=== PATIENT | male | born 1965 | race Caucasian/White ===

== ENCOUNTER → 2017-03-25 | Outpatient (CLI) | payer OTHER ==
[2017-03-25 13:13] LABS: BLOOD UREA NITROGEN 9 mg/dl (7-18); BUN/CREATININE RATIO 10.4 (10-20); CALCIUM 8.4 mg/dl (8.5-10.1); CARBON DIOXIDE 25 mmol/L (21-32); CHLORIDE 104 mmol/L (98-107); CREATININE 0.89 mg/dl (0.60-1.40); GLUCOSE 193 mg/dl (70-99); POTASSIUM 4.1 mmol/L (3.5-5.1); SODIUM 139 mmol/L (136-145)
[2017-03-25 13:15] LABS: ESTIMATED AVERAGE GLUCOSE 148 mg/dl; HA1C FLAG Normal (Normal)
== END | disposition home or self-care (01) ==
LOC: C.LABPVFM 08:08
PROVIDERS: ATTEND Family Medicine
DX: E11.9 Type 2 diabetes mellitus without complications (principal); I10 Essential (primary) hypertension

== ENCOUNTER → 2017-09-29 | Outpatient (CLI) | payer OTHER ==
[2017-09-29 13:03] LABS: BLOOD UREA NITROGEN 11 mg/dl (7-18); BUN/CREATININE RATIO 12.3 (10-20); CALCIUM 8.7 mg/dl (8.5-10.1); CARBON DIOXIDE 25 mmol/L (21-32); CHLORIDE 104 mmol/L (98-107); CREATININE 0.88 mg/dl (0.60-1.40); GLUCOSE 205 mg/dl (70-99); POTASSIUM 4.2 mmol/L (3.5-5.1); SODIUM 137 mmol/L (136-145)
[2017-09-29 13:23] LABS: ESTIMATED AVERAGE GLUCOSE 163 mg/dl; HA1C FLAG Normal (Normal)
== END | disposition home or self-care (01) ==
LOC: C.LABPVFM 07:30
PROVIDERS: ATTEND Family Medicine
DX: I10 Essential (primary) hypertension (principal); E11.9 Type 2 diabetes mellitus without complications

== ENCOUNTER → 2018-03-05 | Outpatient (CLI) | payer OTHER ==
[2018-03-05 18:11] LABS: ALBUMIN 3.6 gm/dl (3.4-5.0); ALT/SGPT 46 U/L (12-78); AST/SGOT 16 U/L (15-37); BLOOD UREA NITROGEN 10 mg/dl (7-18); CALCIUM 8.6 mg/dl (8.5-10.1); CARBON DIOXIDE 23 mmol/L (21-32); CREATININE 0.92 mg/dl (0.60-1.40); GLUCOSE 159 mg/dl (70-99); POTASSIUM 4.1 mmol/L (3.5-5.1); SODIUM 136 mmol/L (136-145)
[2018-03-05 18:21] LABS: ALKALINE PHOSPHATASE 63 U/L (45-117); CHOLESTEROL 154 mg/dl (0-200); LDL CHOLESTEROL CALCULATED 78 mg/dl; TOTAL PROTEIN 7.9 gm/dl (6.4-8.2)
[2018-03-06 06:58] LABS: HEMOGLOBIN A1C 7.1 % (4.5-5.6)
== END | disposition home or self-care (01) ==
LOC: C.LABPVFM 15:46
PROVIDERS: ATTEND Family Medicine
DX: E11.9 Type 2 diabetes mellitus without complications (principal)

== ENCOUNTER 2021-09-25 20:58 | Inpatient (IN) ==
[2021-09-25] MEDS ORDERED: SODIUM CHLORIDE 0.9% 1000ML 1,000 ML IV ONE ×2 (21:12→21:56)
[2021-09-25] MEDS ORDERED: dexAMETHasone**PF** 10 MG/ML VIAL IV ONE (21:12)
--- NOTE | 2021-09-25 21:18 | Emergency Department Note ---
Impression & Plan Respiratory failure, Hypoxic, COVID-19 ED Provider Note NAME: CHOCO CANO AGE: 56 SEX: M : 1965 ARRIVES VIA: Walk-In INFORMANT: Patient ED PROVIDER(S): Sandro Peacock DO CHIEF COMPLAINT: Shortness of breath HPI: Patient is a morbidly obese 56-year-old male with a past medical history of hypertension and diabetes that presents to the ER for shortness of breath. is positive with Covid. His symptoms started on Monday with a sore throat and weakness. He denies any chest pain but admits to shortness of breath especially walking. No belly pain, nausea, vomiting, or diarrhea. No dysuria, urgency, or frequency. Pulse ox at home has been dropping to the 70s. Daughter is at bedside and is a nurse at [employer]. ROS: See above HPI for pertinent positives & negatives. A total of 10 systems reviewed and were otherwise negative. PAST MEDICAL HISTORY:See Below PAST SURGICAL HISTORY:See Below FAMILY HISTORY:See Below SOCIAL HISTORY:See Below HOME MEDICATIONS:See Below ALLERGIES:See Below VITALS:See Below PHYSICAL EXAMINATION: GENERAL: Sitting up in bed, alert, ill-appearing, moderate distress on oxygen mask EYE EXAM: normal conjunctiva. OROPHARYNX: no exudate, no erythema, lips, buccal mucosa, and tongue normal and mucous membranes are moist NECK: supple, no nuchal rigidity, no adenopathy, non-tender LUNGS: Clear to auscultation. Normal chest wall mechanics HEART: no murmurs, S1 normal and S2 normal ABDOMEN: abdomen soft, non-tender, normo-active bowel sounds, no masses, no rebound or guarding. UPPER EXTREMITIES: upper extremities are grossly normal. LOWER EXTREMITIES: No pitting edema. NEURO EXAM: Normal sensorium, cranial nerves II-XII grossly intact, normal speech, no gross weakness of arms, no gross weakness of legs. MEDICAL DECISION MAKING: Patient is a 56-year-old male who presents ER for above-stated complaint. IV was established blood was obtained. Labs show no significant leukocytosis or anemia. VBG with a pH 7.4 and a CO2 of 29. BMP with a hyponatremia 127 and acute kidney injury at 3.6. He has not been eating or drinking much. LFTs mildly elevated. Troponin was negative. Lipase was up at 900. Patient was Covid positive. He was given 2 L of IV fluids as well as steroids. Chest x-ray with bilateral infiltrates. He was placed on BiPAP as he was initially placed on oxygen mask and was hypoxic in the 70s. He was placed on nonrebreather with a pulse ox that went up to 85% and then consequently placed on BiPAP with a pulse ox of 95. Patient was updated bedside. Discussed with the hospitalist minute for further work-up. Triage Nursing notes reviewed. Limited review of prior medical records performed Vital Signs: reviewed and remarkable for hypoxic, febrile, tachycardic and tachypneic Differential diagnosis: Differential diagnoses includes but is not limited to pneumonia, bronchitis, COPD/Asthma exacerbation, pneumothorax, pulmonary embolism, congestive heart failure, acute coronary syndrome ER treatment provided: See below Diagnostics interpreted by me: ECG: Sinus tachycardia rate of 119 Left axis Inferior Q waves QTC 467 Cardiac Monitoring: An order was placed for continuous cardiac monitoring. The monitor shows a rate of 120 with sinus rhythm. Laboratory studies: As stated above and show below. Imaging studies: Portable AP upright 1 view of the chest per my read shows bilateral patchy infiltrates Consultation(s): Discussed with Nathalie Briceño for admission Procedures: none Critical Care: I have personally spent 40 minutes of critical care time in the direct management of this patient. This includes bedside care, interpretation of diagnostic studies, and testing, discussion with consultants, patient, and family members, and other required patient management activities. This 40 minutes is in excess of all separately billable procedures. Past Med/Surg History Medical History Hypertension Hypertriglyceridemia Obesity Tachycardia Type 2 diabetes mellitus Surgical History History of surgery on wrist Family History Father Hypertension Denies family history of Ovarian cancer Prostate cancer Myocardial infarction Breast cancer Colorectal cancer Social History Smoking Status: Light tobacco smoker Second Hand Exposure: No; Do You Dip or Chew Tobacco: Yes; Tobacco Cessation Education Requested by Patient: No Hx Alcohol Use: No Hx Substance Use: No Preferred Language: Serbian Communication Ability: Effective Oracle Forms Developer Required: No Beliefs That Will Affect Care: None marital status: Current Living Situation: Spouse current occupational status: employed Other Information That Helps Us Care for You: No Feels Safe at Home: Yes Safety Concerns: Feels Safe At This Time Childhood Exposure to Second-Hand Smoke: No caffeine: Yes (Coffee) Dental Care, Regularly: Yes Physical Activity Frequency: Does not Exercise Seatbelt Use: always Sunscreen Use: No Assistive Devices: None Allergies Allergies Allergy/AdvReac Type Severity Reaction Status Date / Time No Known Allergies Allergy Unknown Verified 09/25/21 21:43 Home Meds Home Medications Medication Instructions Recorded Confirmed lisinopril 40 mg tablet 40 mg PO DAILY 09/25/21 09/25/21 metoprolol succinate 50 mg 50 mg PO DAILY 09/25/21 09/25/21 tablet,extended release 24 hr Previous Rx's Medication Instructions Recorded blood glucose control, normal #50 ea 04/13/19 (OneTouch Ultra Control) hydrochlorothiazide 25 mg tablet 25 mg PO DAILY #30 tab 02/03/21 glimepiride 4 mg tablet 4 mg PO DAILY #90 tab 04/07/21 atorvastatin 20 mg tablet 20 mg PO DAILY #30 tab 05/05/21 metformin 1,000 mg tablet 1,000 mg PO BID #60 tab 07/05/21 Results & Data (ED) Vital Signs Vital Signs - 24 hr 09/25/21 20:58 09/25/21 21:03 09/25/21 21:11 Temperature 37.8 C H Temperature Source Temporal Artery Scan Pulse Rate 116 H 120 H Pulse Rate from SpO2 Sensor 120 H Respiratory Rate 36 H 29 H Respiratory Effort / Characteristics Labored Short of Breath SOB on Exertion Respiratory Pattern Tachypnea Blood Pressure 114/65 Blood Pressure Mean 81 Pulse Oximetry 88 L 78 L 90 Oxygen Delivery Method BiPAP Non-rebreather Room Air Oxygen Flow Rate 12 Fraction of Inspired Oxygen Sepsis Recent Fever Within 48 Hours No Sepsis New/Unexplained Change in Mental Status N/A Sepsis Action Taken by Nursing Physician Notified Fraction of Inspired Oxygen - Titration 100 Pulse Oximetry Post Tiitration 95 09/25/21 21:20 09/25/21 21:30 09/25/21 22:00 Temperature Temperature Source Pulse Rate 118 H 115 H 107 H Pulse Rate from SpO2 Sensor 119 H 115 H Respiratory Rate 37 H 33 H 34 H Respiratory Effort / Characteristics Respiratory Pattern Blood Pressure 166/89 H 166/87 H 158/89 H Blood Pressure Mean 114 113 112 Pulse Oximetry 93 94 94 Oxygen Delivery Method BiPAP BiPAP Oxygen Flow Rate Fraction of Inspired Oxygen 45 Sepsis Recent Fever Within 48 Hours Sepsis New/Unexplained Change in Mental Status Sepsis Action Taken by Nursing Fraction of Inspired Oxygen - Titration Pulse Oximetry Post Tiitration 09/25/21 22:30 Temperature Temperature Source Pulse Rate 105 H Pulse Rate from SpO2 Sensor Respiratory Rate 35 H Respiratory Effort / Characteristics Respiratory Pattern Blood Pressure 168/92 H Blood Pressure Mean 117 Pulse Oximetry 95 Oxygen Delivery Method Oxygen Flow Rate Fraction of Inspired Oxygen Sepsis Recent Fever Within 48 Hours Sepsis New/Unexplained Change in Mental Status Sepsis Action Taken by Nursing Fraction of Inspired Oxygen - Titration Pulse Oximetry Post Tiitration Laboratory Data Result diagrams: 09/25/21 21:20 09/25/21 21:20 Lab Results 09/25/21 09/25/21 09/25/21 Range/Units 21:20 21:20 21:20 WBC 5.62 (4.8-10.8) K/uL RBC 5.06 (4.7-6.1) M/uL Hgb 14.8 (14.0-18.0) g/dL Hct 39.5 L (42-52) % MCV 78.1 L (80-100) fL MCH 29.2 (25-34) pg MCHC 37.5 H (32-36) g/dL RDW Std Deviation 37.3 (36.4-46.3) fL RDW Coeff of Val 13.3 (11.5-14.5) % Plt Count 203 (130-400) K/uL MPV 9.6 (7.4-10.4) fL Immature Gran % (Auto) 0.2 % Neut % (Auto) 88.6 % Lymph % (Auto) 8.7 % [place] % (Auto) 2.3 % Eos % (Auto) 0.0 % Baso % (Auto) 0.2 % Neut # (Auto) 4.98 (1.4-6.5) K/uL Lymph # (Auto) 0.49 L (1.2-3.4) K/uL [place] # (Auto) 0.13 (0.11-0.59) K/uL Eos # (Auto) 0.00 (0-0.5) K/uL Baso # (Auto) 0.01 (0-0.2) K/uL Immature Gran # (Auto) 0.01 (0.00-0.02) K/uL VBG pH (7.36-7.41) VBG pCO2 (38-50) mmHg VBG pO2 mmHg VBG HCO3 mmol/L VBG O2 Saturation % VBG Base Excess mEq/L Barometric Pressure mm/Hg Sodium 127 L (136-145) mmol/L Potassium 3.0 L (3.5-5.1) mmol/L Chloride 91 L (98-107) mmol/L Carbon Dioxide 21 (21-32) mmol/L Anion Gap 14.0 H (3-11) BUN 76 H (7-18) mg/dl Creatinine 3.63 H (0.6-1.4) mg/dl Est Cr Clr Drug Dosing 34.2 ml/min Est GFR ( Amer) 20.7 ml/min Est GFR (Non-Af Amer) 17.9 ml/min BUN/Creatinine Ratio 20.9 H (10-20) Glucose 259 H (70-99) mg/dl Calcium 7.5 L (8.5-10.1) mg/dl Total Bilirubin 0.5 (0.2-1) mg/dl AST 138 H (15-37) U/L ALT 98 H (12-78) Alkaline Phosphatase 31 L (45-117) U/L Troponin I < 0.015 (0-0.045) ng/ml Total Protein 7.1 (6.4-8.2) gm/dl Albumin 2.6 L (3.4-5.0) gm/dl Globulin 4.5 H (2.5-4.0) gm/dl Albumin/Globulin Ratio 0.6 L (0.9-2) Lipase 944 H (73-393) U/L SARS-CoV-2 (PCR) POSITIVE A* (Negative) Influenza Type A (PCR) Negative (Neg) Influenza Type B (PCR) Negative (Neg) RSV (RT-PCR) Negative (Neg) 09/25/21 Range/Units 21:32 WBC (4.8-10.8) K/uL RBC (4.7-6.1) M/uL Hgb (14.0-18.0) g/dL Hct (42-52) % MCV (80-100) fL MCH (25-34) pg MCHC (32-36) g/dL RDW Std Deviation (36.4-46.3) fL RDW Coeff of Val (11.5-14.5) % Plt Count (130-400) K/uL MPV (7.4-10.4) fL Immature Gran % (Auto) % Neut % (Auto) % Lymph % (Auto) % [place] % (Auto) % Eos % (Auto) % Baso % (Auto) % Neut # (Auto) (1.4-6.5) K/uL Lymph # (Auto) (1.2-3.4) K/uL [place] # (Auto) (0.11-0.59) K/uL Eos # (Auto) (0-0.5) K/uL Baso # (Auto) (0-0.2) K/uL Immature Gran # (Auto) (0.00-0.02) K/uL VBG pH 7.47 H (7.36-7.41) VBG pCO2 29 L (38-50) mmHg VBG pO2 38 mmHg VBG HCO3 21 mmol/L VBG O2 Saturation 72.3 % VBG Base Excess -2.0 mEq/L Barometric Pressure 736.9 mm/Hg Sodium (136-145) mmol/L Potassium (3.5-5.1) mmol/L Chloride (98-107) mmol/L Carbon Dioxide (21-32) mmol/L Anion Gap (3-11) BUN (7-18) mg/dl Creatinine (0.6-1.4) mg/dl Est Cr Clr Drug Dosing ml/min Est GFR ( Amer) ml/min Est GFR (Non-Af Amer) ml/min BUN/Creatinine Ratio (10-20) Glucose (70-99) mg/dl Calcium (8.5-10.1) mg/dl Total Bilirubin (0.2-1) mg/dl AST (15-37) U/L ALT (12-78) Alkaline Phosphatase (45-117) U/L Troponin I (0-0.045) ng/ml Total Protein (6.4-8.2) gm/dl Albumin (3.4-5.0) gm/dl Globulin (2.5-4.0) gm/dl Albumin/Globulin Ratio (0.9-2) Lipase (73-393) U/L SARS-CoV-2 (PCR) (Negative) Influenza Type A (PCR) (Neg) Influenza Type B (PCR) (Neg) RSV (RT-PCR) (Neg) Administered Medications Discontinued Medications Dexamethasone Sodium Phosphate (DexamethasonePf 10 Mg/Ml Vial) 6 mg IV NOW ONE Stop: 09/25/21 21:13 Last Admin: 09/25/21 21:26 Dose: 6 mg Documented by: [id number] Sodium Chloride (Nss 1000ml) 1,000 mls @ 999 mls/hr IV .Q1H1M ONE Stop: 09/25/21 22:12 Last Infusion: 09/25/21 23:14 Dose: 0 mls/hr Documented by: [id number] Admin: 09/25/21 21:27 Dose: 999 mls/hr Documented by: [id number] Sodium Chloride (Nss 1000ml) 1,000 mls @ 999 mls/hr IV .Q1H1M ONE Stop: 09/25/21 22:56 Last Infusion: 09/25/21 23:54 Dose: 0 mls/hr Documented by: [id number] Admin: 09/25/21 22:37 Dose: 999 mls/hr Documented by: [id number] Potassium Chloride (K Reji / Wtr) 10 meq in 100 mls @ 100 mls/hr IV ONE ONE Stop: 09/25/21 22:55 Last Infusion: 09/25/21 23:14 Dose: 0 mls/hr Documented by: [id number] Admin: 09/25/21 22:03 Dose: 100 mls/hr Documented by: [id number] Discharge Plan Visit Data Chief Complaint: Shortness of Breath/Dyspnea Stated Complaint: SOB, LIGHT HEADED, LOW O2 ED Provider: Sandro Peacock Discharge Problem: Respiratory failure, Hypoxic, COVID-19 Patient Disposition: Admitted As Inpatient Discharge Instructions Interventions: ED Discharge Assessment Last Done: 09/26/21 01:36 Discharge Problem: Respiratory failure Qualifiers: Chronicity: acute Respiratory failure complication: hypoxia Qualified Code(s): J96.01 - Acute respiratory failure with hypoxia
[2021-09-25 21:31] LABS: Hematocrit (blood only) 39.5 % (42-52); Hemoglobin 14.8 g/dL (14.0-18.0); Mean Corpuscular Hemoglobin 29.2 pg (25-34); Mean Corpuscular Hgb Conc 37.5 g/dL (32-36); Mean Corpuscular Volume 78.1 fL (80-100); Mean Platelet Volume 9.6 fL (7.4-10.4); Platelet Count 203 K/uL (130-400); RDW Coefficient of Variation 13.3 % (11.5-14.5); RDW Standard Deviation 37.3 fL (36.4-46.3); Red Blood Count 5.06 M/uL (4.7-6.1); White Blood Count 5.62 K/uL (4.8-10.8)
[2021-09-25 21:42] LABS: Oxygen Saturation VBG 72.3 %; pH VBG 7.47 (7.36-7.41)
[2021-09-25 21:48] LABS: Alanine Aminotransferase 98 (12-78); Albumin Level 2.6 gm/dl (3.4-5.0); Aspartate Aminotransferase 138 U/L (15-37); BUN Creatinine Ratio 20.9 (10-20); Blood Urea Nitrogen 76 mg/dl (7-18); Calcium 7.5 mg/dl (8.5-10.1); Carbon Dioxide 21 mmol/L (21-32); Chloride 91 mmol/L (98-107); Creatinine Clr Calc Pharmacy 34.2 ml/min; Est GFR (African American) 20.7 ml/min; Est GFR (Non-African American) 17.9 ml/min; Glucose 259 mg/dl (70-99); Lipase 944 U/L (73-393); Sodium 127 mmol/L (136-145)
[2021-09-25 21:53] LABS: Albumin Globulin Ratio 0.6 (0.9-2); Alkaline Phosphatase 31 U/L (45-117); Bilirubin,Total 0.5 mg/dl (0.2-1); Globulin 4.5 gm/dl (2.5-4.0); Total Protein 7.1 gm/dl (6.4-8.2); Troponin I < 0.015 ng/ml (0-0.045)
[2021-09-25] MEDS ORDERED: POTASSIUM CHLORIDE / WTR 10 MEQ/100 ML PLCT IV ONE (21:56)
[2021-09-25 22:12] LABS: Basophils # (auto) 0.01 K/uL (0-0.2); Basophils % (auto) 0.2 %; Immature Granulocytes # (auto) 0.01 K/uL (0.00-0.02); Immature Granulocytes % (auto) 0.2 %; Lymphocytes # (auto) 0.49 K/uL (1.2-3.4); Lymphocytes % (auto) 8.7 %; Monocytes # (auto) 0.13 K/uL (0.11-0.59); Monocytes % (auto) 2.3 %; Neutrophils # (auto) 4.98 K/uL (1.4-6.5); Neutrophils % (auto) 88.6 %
[2021-09-25 22:14] LABS: Influenza A virus by PCR Negative (Neg); Influenza B virus by PCR Negative (Neg); RSV by PCR Negative (Neg)
--- NOTE | 2021-09-25 22:39 | History & Physical Report ---
Date of Service September 25, 2021 Assessment & Plan (1) COVID-19: Plan: 56yo male with history of DM, HTN, HLP and Obesity (BMI of 46) presenting with acute hypoxic respiratory failure secondary to Covid-19 PNA. Patient is not vaccinated against Covid-19. He has been ill approximately 1 week. presently with Covid as well. Hypoxic on arrival. Now improved on BiPAP, 45% FiO2 Labs show Lympohpenia as well as markedly elevated inflammatory markers - Ferritin, LDH, CRP=9.6 Elevated Procalcitonin as well at 0.86 -Admit to PCU -Maintain Covid isolation precautions -Supplemental O2 as needed to maintain saturations >92%. Patient presently doing well on BiPAP with 45% FiO2 -Encourage proning - this was discussed with patient, should be encouraged by nursing upstairs -Dexamethasone 10mg IV daily - marked elevation of inflammatory markers -Remdesivir 200mg IV x 1 followed by 100mg IV daily x 4 -Closely monitor renal function and LFTs during Remdesivir treatment. eGFR is >30 at this time. -Treatment guidelines for Baricitnib not met due to LAURENT. -Heparin 5000u TID in LAURENT -Azithromycin - elevated procalcitonin may represent bacterial infection as well -Tylenol PRN -Albuterol PRN (2) Respiratory failure: Plan: As above. Acute hypoxic respiratory failure secondary to Covid-19 PNA, ?superimposed bacterial infection as well given elevated procalcitonin- although not reliable in Covid-19 infection (3) LAURENT (acute kidney injury): Plan: Elevation of BUN to 76 from 23 and Cr of 3.63 from prior value of 1.12. Suspect dehydration contributing as well as underlying illness, Covid with hypoxia. He was administered 2L NS in the ER. -Bladder scan PRN with placement of Alonso if needed -Montior strict I/Os -Daily chemistry, electrolytes -Avoid nephrotoxic agents -Renal dosing where applicable (4) Type 2 diabetes mellitus: Plan: On oral agents -Hold PO agents - Metformin and Glimepiride -Lantus 7u BID -ISS (5) Hypertriglyceridemia: Plan: Chronic -Continue Atorvastatin (6) Hypertension: Plan: Chronic -Continue Metoprolol 50mg po daily -Hold Lisinopril and HCTZ in setting of LAURENT Plan: F/E/N - Heplock. Patient received 2L crystalloid in ER - will hold off on additional IVF at this time. Montior electrolytes - K repletion with 40mEq x 1, CC diet as tolerated Ppx - Heparin 5000u TID Code - Full per discussion with patient Dispo - Admit to PCU History of Present Illness Chief Complaint: Covid-19 PNA, hypoxia Primary Care Provider: Olivia Hanna MD Mars Schmid is a 56yo male presenting with Covid-19 PNA and hypoxia. Patient's was ill with Covid-19 prior to Thanksgiving and is almost fully recovered. Patient began developing symptoms 1 week ago - sore throat, SOB, HANKINS and fatigue - progressive over the last week. He denies fever, chills, sweats, chest pain, abdominal pain, nausea, vomiting, diarrhea. He denies loss of taste or smell. Patient's saturations in the 70's at home which prompted him to seek care. Saturations of 78% on room air. Patient was managed with NRB and escalated to BiPAP. Feels improved at this time. Has not been eating or drinking anything for the past several days. Daughter is at bedside and is a nurse at [employer]. ER Course: Dexamethasone 6mg, KCl 10mEq, NSS x 2L Allergies Allergy/AdvReac Type Severity Reaction Status Date / Time No Known Allergies Allergy Unknown Verified 09/25/21 21:43 Home Medications Medication Instructions Recorded Confirmed Type blood glucose control, normal #50 ea 04/13/19 08/25/21 Rx (OneTouch Ultra Control) hydrochlorothiazide 25 mg tablet 25 mg PO DAILY #30 tab 02/03/21 09/25/21 Rx glimepiride 4 mg tablet 4 mg PO DAILY #90 tab 04/07/21 09/25/21 Rx atorvastatin 20 mg tablet 20 mg PO DAILY #30 tab 05/05/21 09/25/21 Rx metformin 1,000 mg tablet 1,000 mg PO BID #60 tab 07/05/21 09/25/21 Rx lisinopril 40 mg tablet 40 mg PO DAILY 09/25/21 09/25/21 History metoprolol succinate 50 mg 50 mg PO DAILY 09/25/21 09/25/21 History tablet,extended release 24 hr Past Med/Surg History Medical History Hypertension Hypertriglyceridemia Obesity Tachycardia Type 2 diabetes mellitus Surgical History History of surgery on wrist Family History Father Hypertension Denies family history of Ovarian cancer Prostate cancer Myocardial infarction Breast cancer Colorectal cancer Social History Smoking Status: Light tobacco smoker Second Hand Exposure: No; Do You Dip or Chew Tobacco: Yes; Tobacco Cessation Education Requested by Patient: No Hx Alcohol Use: No Hx Substance Use: No Preferred Language: Surinamese Communication Ability: Effective Water Tanker Driver Required: No Beliefs That Will Affect Care: None marital status: Current Living Situation: Spouse current occupational status: employed Other Information That Helps Us Care for You: No Feels Safe at Home: Yes Safety Concerns: Feels Safe At This Time Childhood Exposure to Second-Hand Smoke: No caffeine: Yes (Coffee) Dental Care, Regularly: Yes Physical Activity Frequency: Does not Exercise Seatbelt Use: always Sunscreen Use: No Assistive Devices: None Review of Systems Review of Systems: All systems reviewed & are unremarkable except as noted in HPI & below Physical Exam Physical Exam: General: ill in appearance, BiPAP in place. Able to answer questions appropriately and follow commands Skin: warm, dry, intact, no rashes or lesions HEENT: NC/AT, PERRL, EOMI, anicteric sclera, conjunctiva without injection, external ear normal to inspection and nontender, nares patent, moist mucus membranes, dentition intact, no oropharyngeal lesions, neck supple, trachea midline, no LAD, no thyromegaly, no JVD Heart: +S1/S2, regular, no m/r/g Lungs: equal air entry bilaterally, no rales/rhonchi/wheezes Abd: +BS, soft, NT/ND, no masses/organomegaly/ascites Ext: warm, 2+ pulses in UE/LE bilaterally, no clubbing/cyanosis or edema Neuro: nonfocal, patient AA&O x 4, speech intact, no facial droop, moving all extremities on command with equal strength 5/5 Results & Data Results & Data ([facility]) Vital Signs (Past 12 Hours) Vital Signs Temp Pulse Resp BP Pulse Ox 09/25/21 21:30 115 H 33 H 166/87 H 94 09/25/21 21:20 118 H 37 H 166/89 H 93 09/25/21 21:11 120 H 29 H 90 09/25/21 21:03 37.8 C H 116 H 36 H 114/65 78 L 09/25/21 20:58 88 L Laboratory Results Laboratory Results WBC 5.62 K/uL (4.8-10.8) 09/25/21 21:20 RBC 5.06 M/uL (4.7-6.1) 09/25/21 21:20 Hgb 14.8 g/dL (14.0-18.0) 09/25/21 21:20 Hct 39.5 % (42-52) L 09/25/21 21:20 MCV 78.1 fL (80-100) L 09/25/21 21:20 MCH 29.2 pg (25-34) 09/25/21 21:20 MCHC 37.5 g/dL (32-36) H 09/25/21 21:20 RDW Std Deviation 37.3 fL (36.4-46.3) 09/25/21 21:20 RDW Coeff of Val 13.3 % (11.5-14.5) 09/25/21 21:20 Plt Count 203 K/uL (130-400) 09/25/21 21:20 MPV 9.6 fL (7.4-10.4) 09/25/21 21:20 Immature Gran % (Auto) 0.2 % 09/25/21 21:20 Neut % (Auto) 88.6 % 09/25/21 21:20 Lymph % (Auto) 8.7 % 09/25/21 21:20 [place] % (Auto) 2.3 % 09/25/21 21:20 Eos % (Auto) 0.0 % 09/25/21 21:20 Baso % (Auto) 0.2 % 09/25/21 21:20 Neut # (Auto) 4.98 K/uL (1.4-6.5) 09/25/21 21:20 Lymph # (Auto) 0.49 K/uL (1.2-3.4) L 12/04/21 21:20 [place] # (Auto) 0.13 K/uL (0.11-0.59) 09/25/21 21:20 Eos # (Auto) 0.00 K/uL (0-0.5) 09/25/21 21:20 Baso # (Auto) 0.01 K/uL (0-0.2) 09/25/21 21:20 Immature Gran # (Auto) 0.01 K/uL (0.00-0.02) 09/25/21 21:20 Fibrinogen 755 mg/dl (184-400) H 09/26/21 02:44 VBG pH 7.47 (7.36-7.41) H 09/25/21 21:32 VBG pCO2 29 mmHg (38-50) L 09/25/21 21:32 VBG pO2 38 mmHg 09/25/21 21:32 VBG HCO3 21 mmol/L 09/25/21 21:32 VBG O2 Saturation 72.3 % 09/25/21 21:32 VBG Base Excess -2.0 mEq/L 09/25/21 21:32 Barometric Pressure 736.9 mm/Hg 09/25/21 21:32 Sodium 127 mmol/L (136-145) L 09/25/21 21:20 Potassium 3.0 mmol/L (3.5-5.1) L 09/25/21 21:20 Chloride 91 mmol/L (98-107) L 09/25/21 21:20 Carbon Dioxide 21 mmol/L (21-32) 09/25/21 21:20 Anion Gap 14.0 (3-11) H 09/25/21 21:20 BUN 76 mg/dl (7-18) H 09/25/21 21:20 Creatinine 3.63 mg/dl (0.6-1.4) H 09/25/21 21:20 Est Cr Clr Drug Dosing 34.2 ml/min 09/25/21 21:20 Est GFR ( Amer) 20.7 ml/min 09/25/21 21:20 Est GFR (Non-Af Amer) 17.9 ml/min 09/25/21 21:20 BUN/Creatinine Ratio 20.9 (10-20) H 09/25/21 21:20 Glucose 259 mg/dl (70-99) H 09/25/21 21:20 Lactate 1.8 mmol/L (0.4-2.0) 09/26/21 02:44 Calcium 7.5 mg/dl (8.5-10.1) L 09/25/21 21:20 Phosphorus 3.4 mg/dl (2.5-4.9) 09/25/21 21:20 Magnesium 1.8 mg/dl (1.8-2.4) 09/25/21 21:20 Ferritin 5238.4 ng/ml (8-388) H 09/25/21 21:20 Total Bilirubin 0.5 mg/dl (0.2-1) 09/25/21 21:20 AST 138 U/L (15-37) H 09/25/21 21:20 ALT 98 (12-78) H 09/25/21 21:20 Alkaline Phosphatase 31 U/L (45-117) L 09/25/21 21:20 Lactate Dehydrogenase 831 U/L (87-241) H 09/25/21 21:20 Troponin I < 0.015 ng/ml (0-0.045) 09/25/21 21:20 C-Reactive Protein 9.60 mg/dl (0-0.29) H 09/25/21 21:20 Total Protein 7.1 gm/dl (6.4-8.2) 09/25/21 21:20 Albumin 2.6 gm/dl (3.4-5.0) L 09/25/21 21:20 Globulin 4.5 gm/dl (2.5-4.0) H 09/25/21 21:20 Albumin/Globulin Ratio 0.6 (0.9-2) L 09/25/21 21:20 Lipase 944 U/L (73-393) H 09/25/21 21:20 Procalcitonin 0.86 ng/ml (0-0.5) H 09/25/21 21:20 SARS-CoV-2 (PCR) POSITIVE (Negative) A* 09/25/21 21:20 Influenza Type A (PCR) Negative (Neg) 09/25/21 21:20 Influenza Type B (PCR) Negative (Neg) 09/25/21 21:20 RSV (RT-PCR) Negative (Neg) 09/25/21 21:20 Diagnostic Findings CXR - by my interpretation - trachea midline, cardiac shadow WNL, diffuse, dnese appearing bilateral airspace disease Code Status & VTE Plan VTE Prophylaxis Plan VTE Prophylaxis will be ordered: Yes PG Care Time/CCT Total # of Minutes Spent Total Time Spent with Patient: Total time spent is greater than 50% in coordination of care (as documented) at patient's floor/unit and/or counseling patient: Coding Level of Care Code 77835 Initial Inpt Care Lvl 3 Diagnoses COVID-19 U07.1 Respiratory failure J96.01 Chronicity: acute Respiratory failure complication: hypoxia Type 2 diabetes mellitus E11.9 Hypertriglyceridemia E78.1 Hypertension I10 LAURENT (acute kidney injury) N17.9 (1) Respiratory failure Chronicity: acute Respiratory failure complication: hypoxia Qualified Code(s): J96.01 - Acute respiratory failure with hypoxia
[2021-09-26] MEDS ORDERED: GLUCAGON FOR INJ 1 MG VIAL SQ PRN (01:37)
[2021-09-26] MEDS ORDERED: DEXTROSE 50% 50 ML SYRINGE IV PRN (01:37)
[2021-09-26] MEDS ORDERED: GLUCOSE 10 TABS/TUBE PO PRN (01:37)
[2021-09-26] MEDS ORDERED: ACETAMINOPHEN 325 MG TAB PO PRN (01:37)
[2021-09-26] MEDS ORDERED: ONDANSETRON INJ 2 MG/ML 2 ML VIAL IV PRN (01:37)
[2021-09-26] MEDS ORDERED: GLUCOSE 40% GEL 15 GM TUBE PO PRN (01:37)
[2021-09-26 02:09] LABS: Ferritin 5238.4 ng/ml (8-388); Magnesium 1.8 mg/dl (1.8-2.4); Phosphorus 3.4 mg/dl (2.5-4.9)
[2021-09-26 03:57] LABS: Fibrinogen 755 mg/dl (184-400)
[2021-09-26] MEDS ORDERED: ALBUTEROL HFA 8 GM INHALER INH PRN (05:02)
[2021-09-26] MEDS ORDERED: POTASSIUM CHLORIDE CRTAB 20 MEQ TABCR PO STA (05:08)
[2021-09-26] MEDS ORDERED: AZITHROMYCIN 500 MG in DEXTROSE 5% 250 ML IV ONE (05:30)
[2021-09-26] MEDS ORDERED: REMDESIVIR 200 MG in SODIUM CHLORIDE 0.9% 210 ML IV ONE (05:30)
[2021-09-26] MEDS: HEPARIN SOD 5,000 UNIT/0.5 ML VIAL SQ SCH ×3 (06:12→21:58)
[2021-09-26] MEDS ORDERED: SODIUM CHLORIDE 0.9% 10ML FLUSH IV SCH (07:30)
[2021-09-26] MEDS ORDERED: PHARMACY GLYCEMIC MGMT CONSULT PRN (07:53)
[2021-09-26] MEDS ORDERED: INSULIN HUMAN REGULAR PER UNIT 10 UNITS in SYRINGE 9.9 ML IV ONE (08:45)
[2021-09-26] MEDS: SODIUM CHLORIDE 0.9% 10ML FLUSH IV SCH (08:54)
[2021-09-26] MEDS ORDERED: dexAMETHasone 6 MG in SYRINGE 0 ML IV SCH (09:00)
[2021-09-26] MEDS ORDERED: INSULIN GLARGINE SOLOSTAR 100 UNITS/ML 3 ML PEN SC SCH (09:00)
[2021-09-26 09:10] LABS: Beta-Hydroxybutyrate 24.71 mg/dl (0.2-2.81)
[2021-09-26] MEDS: INSULIN ASPART 100 UNITS/ML 3 ML PEN SC SCH ×5 (09:16→22:05)
--- NOTE | 2021-09-26 09:24 | Hospitalist Progress Note ---
Date of Service September 26, 2021 Assessment & Plan (1) COVID-19: Plan: 56yo male with history of DM, HTN, HLP and Obesity (BMI of 46) presenting with acute hypoxic respiratory failure secondary to Covid-19 PNA. Patient is not vaccinated against Covid-19. He has been ill approximately 1 week. presently with Covid as well. Hypoxic on arrival. Now improved on BiPAP, 45% FiO2 Labs show Lympohpenia as well as markedly elevated inflammatory markers - Ferritin, LDH, CRP=9.6 Elevated Procalcitonin as well at 0.86 dexamethasone 6mg IV daily, day 2 Remdesivir IV daily, day 2 does not meet criteria for baricitinib due to LAURENT, if renal function improves will start baricitinib Zithromax daily due to slightly elevated PCT try him on high flow today, encourage prone positioning guarded prognosis, d/w ICU so they are aware of the patient (2) Respiratory failure: Plan: increased work of breathing, tachypnea on BIPAP will try on high flow to allow him to eat and drink this morning treat COVID with dexamethasone, Remdesivir once renal function is recovered and euvolemic, will try Lasix to keep lungs dry (3) LAURENT (acute kidney injury): Plan: Elevation of BUN to 76 from 23 and Cr of 3.63 from prior value of 1.12. Suspect dehydration contributing as well as underlying illness, Covid with hypoxia. He was administered 2L NS in the ER. hold lisinopril/HCTZ which likely compounded the issue K low at 3.0, Na low at 127 awaiting repeat values drawn this morning give NSS + 40mEq of K at 80cc/hr for one more bag he is making urine, no need for cote at this time give 40mEq of K riders this morning (4) Type 2 diabetes mellitus: Plan: profound hyperglycemia, glucose is 511 today give regular insulin 10 units now consult pharmacy, can likely use insulin drip since he is critically ill with COVID and respiratory failure check sugars every hour replace K as is will likely drop with insulin (5) Hypertriglyceridemia: Plan: Chronic -Continue Atorvastatin (6) Hypertension: Plan: Chronic -Continue Metoprolol 50mg po daily -Hold Lisinopril and HCTZ in setting of LAURENT Plan: F/E/N - will give one more liter of NSS + 40mEq of KCl at 80cc/hr, cautious with fluids in setting of COVID Ppx - Heparin 5000u TID, change to higher dose Lovenox once renal function recovers Code - Full per discussion with patient Dispo - Admit to PCU Admission and Anticipated Discharge Date Admission Date: September 25, 2021 Subjective patient admitted overnight, severe COVID pneumonia patient says he has been sick for about 7 days, very poor appetite, no diarrhea, breathing getting worse the past two days he is on BIPAP but only needs 45% FiO2, using his abdominal muscles but not in distress, discussed trying high flow he says he sleeps on his stomach, told him that is a good thing, can get him prone as much as possible he is hungry, will try to eat if he can stay on high flow reviewed labs, Cr 3.6, awaiting repeat this morning sugar is 500, gave him regular insulin 10 units, consult pharmacy, likely benefit from drip for 24-36 hours discussed that we need to take this one day at a time, goal is to try to prevent him from needing intubation I discussed his case with ICU, they are aware of him and the chance that he might deteriorate Review of Systems Review of Systems: All systems reviewed & are unremarkable except as noted in Subjective Constitutional: + fatigue and + weakness; no fever Respiratory: + cough, + dyspnea and + dyspnea on exertion Cardiovascular: no chest pain and no edema Gastrointestinal: + early satiety; no abdominal pain, no nausea, no vomiting, no constipation and no diarrhea/loose stools Physical Exam Physical Exam: General: well developed, obese male, ill appearing, no distress, on BIPAP Neck: thick short neck, trachea midline, normal thyroid Lungs: clear to auscultation bilaterally, + tachypnea, + accessory muscle use on BIPAP Heart: regular S1 and S2, no murmur, peripheral pulses normal, capillary refill normal, no edema Abdomen: soft, NT, ND, + BS, no hepatomegaly, normal to percussion Extremities: normal in appearance, no cyanosis, no petechiae, strength is 5/5 bilaterally Neuro: awake, cooperative, moves all extremities, no focal motor deficits, CN II-XII intact, sensation in extremities intact, normal speech Skin: warm, dry, no rash, normal turgor Psych: Awake, alert oriented x 3, euthymic affect Results & Data Results & Data ([facility]) Vital Signs (Past 12 Hours) Vital Signs Temp Pulse Pulse Resp BP BP Pulse Ox 09/26/21 06:22 89 26 H 93 09/26/21 03:06 94 H 35 H 94 09/26/21 02:41 95 H 24 93 09/26/21 01:30 09/26/21 01:13 37.5 C 105 H 20 148/69 H 89 L 09/26/21 00:30 102 H 35 H 129/79 89 L 09/25/21 23:00 108 H 20 156/92 H 87 L 09/25/21 22:54 106 H 16 92 09/25/21 22:30 105 H 35 H 168/92 H 95 09/25/21 22:00 107 H 34 H 158/89 H 94 09/25/21 21:30 115 H 33 H 166/87 H 94 Pulse Ox 09/26/21 06:22 09/26/21 03:06 09/26/21 02:41 09/26/21 01:30 92 09/26/21 01:13 09/26/21 00:30 09/25/21 23:00 09/25/21 22:54 09/25/21 22:30 09/25/21 22:00 09/25/21 21:30 Medications Administered Current Inpatient Medications Acetaminophen (Acetaminophen 325 Mg Tab) 650 mg PO Q4H PRN PRN Reason: Pain or Fever Stop: 10/26/21 01:36 Albuterol (Albuterol Hfa 8 Gm Inhaler) 2 puffs INH Q2R PRN PRN Reason: Shortness Of Breath Stop: 10/26/21 05:01 Atorvastatin Calcium (Atorvastatin 20 Mg Tab) 20 mg PO DAILY [facility] Stop: 10/26/21 08:59 Last Admin: 09/26/21 09:25 Dose: 20 mg Documented by: Dextrose (Dextrose 50% 50 Ml Syringe) 25 - 50 ml IV UD PRN; Protocol PRN Reason: Hypoglycemia Protocol Stop: 10/26/21 01:36 Glucagon (Glucagon For Inj 1 Mg Vial) 1 mg SQ UD PRN; Protocol PRN Reason: Hypoglycemia Protocol Stop: 10/26/21 01:36 Glucose (Glucose 10 Tabs/Tube) 4 - 8 tabs PO UD PRN; Protocol PRN Reason: Hypoglycemia Protocol Stop: 10/26/21 01:36 Glucose (Glucose 40% Gel 15 Gm Tube) 15 - 30 gm PO UD PRN; Protocol PRN Reason: Hypoglycemia Protocol Stop: 10/26/21 01:36 Heparin Sodium (Porcine) (Heparin Sod 5,000 Unit/0.5 Ml Vial) 5,000 units SQ Q8 [facility] Stop: 10/26/21 05:59 Last Admin: 09/26/21 06:12 Dose: 5,000 units Documented by: Dexamethasone 10 mg/ Syringe 2.5 mls @ 1 mls/min IV Q24H [facility] Stop: 10/26/21 08:59 Last Admin: 09/26/21 09:25 Dose: 1 mls/min Documented by: Remdesivir 100 mg/ Sodium (Chloride) 250 mls @ 250 mls/hr IV Q24H [facility]; Protocol Stop: 09/30/21 12:59 Azithromycin 250 mg/ Dextrose 252.5 mls @ 125 mls/hr IV Q24H [facility]; Protocol Stop: 10/04/21 08:59 Insulin Aspart (Insulin Aspart 100 Units/Ml 3 Ml Pen) 0 units SC ACHS [facility] Stop: 10/26/21 07:29 Last Admin: 09/26/21 09:16 Dose: 16 units Documented by: Insulin Glargine (Insulin Glargine Solostar 100 Units/Ml 3 Ml Pen) 7 units SC BID [facility] Stop: 10/26/21 08:59 Last Admin: 09/26/21 09:18 Dose: 7 units Documented by: Metoprolol Succinate (Metoprolol Succ 50mg Ext Rel Tab) 50 mg PO DAILY [facility] Stop: 10/26/21 08:59 Last Admin: 09/26/21 09:25 Dose: 50 mg Documented by: Miscellaneous (Carbohydrates For Hypoglycemia ) 15 - 30 gm PO UD PRN PRN Reason: Hypoglycemia Protocol Stop: 10/26/21 01:36 Miscellaneous Information (Pharmacy Glycemic Mgmt Consult) 1 ea N/A UD PRN PRN Reason: Consult Stop: 10/26/21 07:52 Ondansetron HCl (Ondansetron Inj 2 Mg/Ml 2 Ml Vial) 4 mg IV Q6H PRN PRN Reason: Nausea Stop: 10/26/21 01:36 Sodium Chloride (Sodium Chloride 0.9% 10ml Flush) 30 ml IV DAILY@1300 [facility] Stop: 12/09/21 13:01 Last Admin: 09/26/21 08:54 Dose: 30 ml Documented by: PG Care Time/CCT Total # of Minutes Spent Total Time Spent: 37 Total Time Spent with Patient: Total time spent is greater than 50% in coordination of care (as documented) at patient's floor/unit and/or counseling patient: Critical Care Time: Yes Total Critical Care Time: 37 This case had a high probability of a clinically significant, sudden, or life threatening deterioration of this patient's condition which required my full and direct attention, intervention and personal management. he is in respiratory failure on BIPAP in addition to having acute kidney injury, low potassium, profound hyperglycemia, morbid obesity Coding Level of Care Code 46115 Subseq Hosp Care Lvl 3 (25 - SIGNIFICANT, SEPARATELY IDENTIFIABLE ) Diagnoses COVID-19 U07.1 Respiratory failure J96.01 Chronicity: acute Respiratory failure complication: hypoxia LAURENT (acute kidney injury) N17.9 Type 2 diabetes mellitus E11.9 Hypertriglyceridemia E78.1 Hypertension I10 Additional Codes Critical Care Time - Critical Care Time: Yes ([id number]) (1) Respiratory failure Chronicity: acute Respiratory failure complication: hypoxia Qualified Code(s): J96.01 - Acute respiratory failure with hypoxia
[2021-09-26] MEDS: ATORVASTATIN 20 MG TAB PO SCH (09:25)
[2021-09-26] MEDS: dexAMETHasone 10 MG in SYRINGE 0 ML IV SCH (09:25)
[2021-09-26] MEDS: METOPROLOL SUCC 50MG EXT REL TAB PO SCH (09:25)
[2021-09-26] MEDS ORDERED: NovoLIN-N (NPH) PER UNIT CHARGE SQ ONE (10:00)
[2021-09-26 10:14] LABS: Hematocrit (blood only) 35.2 % (42-52); Hemoglobin 12.7 g/dL (14.0-18.0); Mean Corpuscular Hemoglobin 28.7 pg (25-34); Mean Corpuscular Hgb Conc 36.1 g/dL (32-36); Mean Corpuscular Volume 79.5 fL (80-100); Mean Platelet Volume 9.7 fL (7.4-10.4); Platelet Count 188 K/uL (130-400); RDW Coefficient of Variation 13.6 % (11.5-14.5); RDW Standard Deviation 39.2 fL (36.4-46.3); Red Blood Count 4.43 M/uL (4.7-6.1); White Blood Count 4.42 K/uL (4.8-10.8)
--- NOTE | 2021-09-26 11:21 | XRay Report ---
XR chest 1V portable CLINICAL HISTORY: Shortness of breath. Chest pain. COMPARISON STUDY: No previous studies for comparison. FINDINGS: Old mid shaft fracture of the right clavicle is noted. There is no pneumothorax or pleural effusion. There is mild enlargement of the cardiac silhouette. Extensive bilateral airspace opacities are noted. Several these are somewhat nodular appearing. No pneumothorax or pleural effusion is note d. IMPRESSION: Extensive bilateral airspace opacities which favor viral pneumonia. Radiographic follow up is recommended to ensure resolution. ACT 112: Negative or not required by law. Electronically signed by: Sam Ni M.D. 09/26/2021 11:20 AM
[2021-09-26 11:38] LABS: BUN Creatinine Ratio 25.5 (10-20); C Reactive Protein 10.5 mg/dl (0-0.29); Calcium 7.3 mg/dl (8.5-10.1); Creatinine Clr Calc Pharmacy 40.1 ml/min; Est GFR (African American) 24.8 ml/min; Est GFR (Non-African American) 21.4 ml/min; Magnesium 2.3 mg/dl (1.8-2.4)
[2021-09-26] MEDS: POTASSIUM CHLORIDE / WTR 10 MEQ/100 ML PLCT IV SCH ×4 (11:55→15:35)
[2021-09-26 12:09] LABS: Beta-Hydroxybutyrate 17.54 mg/dl (0.2-2.81)
[2021-09-26] MEDS ORDERED: STAT IV Infusion **Titration per Protocol STA ×2 (12:25)
[2021-09-26 12:31] LABS: Potassium 3.7 mmol/L (3.5-5.1)
[2021-09-26] MEDS ORDERED: INSULIN HUMAN REGULAR IV BOLUS 10 UNITS in SYRINGE 0 ML IV SCH (12:45)
--- NOTE | 2021-09-26 13:02 | Electrocardiogram Report ---
Test Reason : Blood Pressure : / mmHG Vent. Rate : 119 BPM Atrial Rate : 119 BPM P-R Int : 120 ms QRS Dur : 078 ms QT Int : 332 ms P-R-T Axes : 028 005 041 degrees QTc Int : 467 ms Poor data quality, interpretation may be adversely affected Sinus tachycardia Nonspecific ST abnormality Abnormal ECG No previous ECGs available Confirmed by Patricio Emerson [id number] on 09/26/2021 1:01:47 PM Referred By: REFERRED SELF Confirmed By:Patricio Emerson
[2021-09-26 13:26] LABS: BUN Creatinine Ratio 26.8 (10-20); Calcium 7.4 mg/dl (8.5-10.1); Creatinine Clr Calc Pharmacy 41.2 ml/min; Est GFR (African American) 25.6 ml/min; Est GFR (Non-African American) 22.1 ml/min; Magnesium 2.3 mg/dl (1.8-2.4); Phosphorus 4.7 mg/dl (2.5-4.9)
[2021-09-26 13:37] LABS: Beta-Hydroxybutyrate 9.59 mg/dl (0.2-2.81)
[2021-09-26] MEDS: INSULIN REGULAR 250 UNITS in SODIUM CHLORIDE 0.9% 247.5 ML IV SCH (14:00)
--- NOTE | 2021-09-26 15:25 | Pharmacy Report ---
Pharmacy Glycemic Short Note 2 - Date of Service September 26, 2021 - Glycemic Short BSG Results (Last 24 hours): 09/25/21 09/26/21 09/26/21 21:20 07:35 07:38 Glucose 259 H POC Glucose 489 H* 492 H* 09/26/21 09/26/21 09/26/21 07:50 10:42 10:46 Glucose 511 H* 537 H* POC Glucose 516 H* 09/26/21 09/26/21 12:46 15:04 Glucose 530 H* POC Glucose 419 H* OUTPATIENT ANTIDIABETIC REGIMEN: * Glimepiride 4 mg daily * Metformin 1000 mg PO BID ASSESSMENT: * 56 y/o M admitted for acute respiratory failure due to Covid pneumonia. Pt with history of Type 2 diabetes managed on oral meds only at home. * Pt presented with a BSG of 259 last night. He received Dexamethasone IV at that time. BSGs continued to trend up to 511 mg/dl this AM. * Since patient's K was low at 3.0 last night, IV KCL riders ordered today AM. K improved to 3.7. * He received Lantus, NPH and Novolog insulin this AM but made no difference in the BSGs. * Mild DKA noted. Insulin drip started per DKA protocol. PLAN FOR INPATIENT GLYCEMIC CONTROL: * Hold outpatient oral diabetes medications * Insulin drip started per DKA protocol. * Basal insulin * Lantus 7 units SQ today AM. Re-assess ongoing dose. * NPH 40 units x 1 dose given this AM. Re-assess tomorrow. * Bolus insulin * NovoLog per scale ACHS or Q6hrs while NPO * Goal Range: Low 140 mg/dL - High 180 mg/dL * Correction Factor: ___ mg/dL/unit * Nutritional / Prandial insulin per carb ratio per insulin drip calculator PLAN FOR DISCHARGE: *
[2021-09-26 17:20] LABS: BUN Creatinine Ratio 28.3 (10-20); Magnesium 2.1 mg/dl (1.8-2.4); Phosphorus 2.8 mg/dl (2.5-4.9); Potassium 3.9 mmol/L (3.5-5.1)
[2021-09-26 17:29] LABS: Creatinine Clr Calc Pharmacy 43.5 ml/min; Est GFR (African American) 27.3 ml/min; Est GFR (Non-African American) 23.5 ml/min
[2021-09-26 17:42] LABS: Beta-Hydroxybutyrate 3.02 mg/dl (0.2-2.81)
[2021-09-26 21:13] LABS: BUN Creatinine Ratio 29.6 (10-20); Calcium 7.3 mg/dl (8.5-10.1); Creatinine Clr Calc Pharmacy 45.2 ml/min; Est GFR (African American) 28.6 ml/min; Est GFR (Non-African American) 24.7 ml/min; Phosphorus 2.7 mg/dl (2.5-4.9)
[2021-09-26] MEDS ORDERED: INSULIN GLARGINE SOLOSTAR 100 UNITS/ML 3 ML PEN SC ONE (21:45)
[2021-09-26 22:08] LABS: Potassium 3.5 mmol/L (3.5-5.1)
[2021-09-26 22:09] LABS: Magnesium 2.3 mg/dl (1.8-2.4)
[2021-09-27 01:06] LABS: Calcium 7.6 mg/dl (8.5-10.1); Creatinine Clr Calc Pharmacy 46.9 ml/min; Est GFR (African American) 29.9 ml/min; Est GFR (Non-African American) 25.8 ml/min; Magnesium 2.4 mg/dl (1.8-2.4); Potassium 3.7 mmol/L (3.5-5.1)
[2021-09-27 01:07] LABS: Phosphorus 2.6 mg/dl (2.5-4.9)
[2021-09-27] MEDS: HEPARIN SOD 5,000 UNIT/0.5 ML VIAL SQ SCH ×3 (05:01→21:50)
[2021-09-27 05:04] LABS: BUN Creatinine Ratio 31.9 (10-20); Calcium 7.7 mg/dl (8.5-10.1); Creatinine Clr Calc Pharmacy 49.9 ml/min; Est GFR (African American) 32.2 ml/min; Est GFR (Non-African American) 27.8 ml/min; Magnesium 2.4 mg/dl (1.8-2.4); Phosphorus 3.1 mg/dl (2.5-4.9); Potassium 3.6 mmol/L (3.5-5.1)
[2021-09-27] MEDS ORDERED: BARICITINIB COMMUNICATION ONE (08:20)
[2021-09-27] MEDS: dexAMETHasone 10 MG in SYRINGE 0 ML IV SCH (08:32)
[2021-09-27] MEDS: INSULIN HUMAN NPH SC SCH (08:34)
[2021-09-27] MEDS: ATORVASTATIN 20 MG TAB PO SCH (08:34)
[2021-09-27] MEDS: METOPROLOL SUCC 50MG EXT REL TAB PO SCH (08:34)
[2021-09-27] MEDS ORDERED: INSULIN GLARGINE SOLOSTAR 100 UNITS/ML 3 ML PEN SC SCH (09:00)
[2021-09-27 09:16] LABS: BUN Creatinine Ratio 33.3 (10-20); Calcium 7.5 mg/dl (8.5-10.1); Creatinine Clr Calc Pharmacy 54.7 ml/min; Est GFR (African American) 35.8 ml/min; Est GFR (Non-African American) 30.9 ml/min; Potassium 3.5 mmol/L (3.5-5.1)
[2021-09-27 09:18] LABS: Magnesium 2.1 mg/dl (1.8-2.4)
[2021-09-27] MEDS: INSULIN REGULAR 250 UNITS in SODIUM CHLORIDE 0.9% 247.5 ML IV SCH (10:16)
[2021-09-27] MEDS: AZITHROMYCIN 250 MG in DEXTROSE 5% 250 ML IV SCH (10:19)
[2021-09-27] MEDS: BARICITINIB 2 MG TAB PO SCH (10:20)
[2021-09-27] MEDS: INSULIN ASPART 100 UNITS/ML 3 ML PEN SC SCH ×4 (10:20→20:34)
[2021-09-27] MEDS ORDERED: STAT IV STA (10:20)
--- NOTE | 2021-09-27 10:23 | Hospitalist Progress Note ---
Date of Service September 27, 2021 Assessment & Plan (1) COVID-19: Plan: 56yo male with history of DM, HTN, HLP and Obesity (BMI of 46) presenting with acute hypoxic respiratory failure secondary to Covid-19 PNA. Patient is not vaccinated against Covid-19. He has been ill approximately 1 week. presently with Covid as well. Hypoxic on arrival Labs show Lympohpenia as well as markedly elevated inflammatory markers - Ferritin, LDH, CRP=9.6 Elevated Procalcitonin as well at 0.86 worse today, tachypneic on BIPAP, 09/29 50% told him he needs to wear Vapotherm if he can come off BIPAP, needs to endure some discomfort high risk for needing intubated dexamethasone 6mg IV daily, day 3 Remdesivir IV daily, day 3 renal function better, give him baricitinib Zithromax daily x 5 days due to slightly elevated PCT try him on high flow today, encourage prone positioning (2) Respiratory failure: Plan: increased work of breathing, tachypnea on BIPAP looking worse today, see if he can come off BIPAP no role for Lasix as his Cr is 2.3 and he is still dry (3) LAURENT (acute kidney injury): Plan: Elevation of BUN to 76 from 23 and Cr of 3.63 from prior value of 1.12. Suspect dehydration contributing as well as underlying illness, Covid with hypoxia. He was administered 2L NS in the ER. hold lisinopril/HCTZ which likely compounded the issue Cr improved to 2.3, making urine, place cote today Na 130 and K 3.5 bicarb 16, will give bicarb drip with 1/2 NSS at 80cc/hr for one bag (4) Type 2 diabetes mellitus: Plan: profound hyperglycemia, glucose was 500 on 09/27 mild DKA, elevated beta hydroxy butyrate continue insulin drip as he is critically ill (5) Metabolic acidosis: Plan: due to DKA, renal failure place on sodium bicarb 75 plus 1/2 NSS at 80cc/hr (6) Hypertriglyceridemia: Plan: Chronic -Continue Atorvastatin (7) Hypertension: Plan: Chronic -Continue Metoprolol 50mg po daily -Hold Lisinopril and HCTZ in setting of LAURENT Plan: F/E/N - gentle fluids, cannot eat or drink due to BIPAP Ppx - Lovenox Pepcid BID Code - Full per discussion with patient Dispo - Admit to PCU Admission and Anticipated Discharge Date Admission Date: September 25, 2021 Subjective patient not doing well today, desaturated on nasal canula when he sat up to urin ate, will place cote he is currently on BIPAP 12/8 50% with saturations 90% he is tachypneic and belly breathing, discussed that if we get off of BIPAP he needs to wear Vapotherm it might be uncomfortable but the alternative is getting intubated so he needs to withstand some discomfort reviewed labs, sugars are in 200's, Cr down to 2.3, bicarb 17, Na 130, CRP is 10 pharmacy helping with glucose, appreciate their assistance with drip called his Jayla and discussed his poor prognosis, will likely need intubated with his obesity, renal failure, diabetes and requiring BIPAP Review of Systems Review of Systems: All systems reviewed & are unremarkable except as noted in Subjective Respiratory: + cough, + dyspnea and + dyspnea on exertion Cardiovascular: no chest pain Gastrointestinal: no abdominal pain, no nausea, no vomiting, no constipation and no diarrhea/loose stools Physical Exam Physical Exam: General: well developed, obese male, ill appearing, mild distress on BIPAP Neck: thick short neck, trachea midline, normal thyroid Lungs: clear to auscultation bilaterally, + tachypnea (30's), + accessory muscle use on BIPAP Heart: regular S1 and S2, no murmur, peripheral pulses normal, capillary refill normal, no edema Abdomen: soft, NT, ND, + BS, no hepatomegaly, normal to percussion Extremities: normal in appearance, no cyanosis, no petechiae, strength is 5/5 bilaterally Neuro: awake, cooperative, moves all extremities, no focal motor deficits, CN II-XII intact, sensation in extremities intact, normal speech Skin: warm, dry, no rash, normal turgor Psych: Awake, alert oriented x 3, anxious Results & Data Results & Data ([facility]) Vital Signs (Past 12 Hours) Vital Signs Temp Pulse Pulse Resp BP Pulse Ox 09/27/21 07:29 36.9 C 104 H 34 H 177/89 H 92 09/27/21 04:20 95 H 3 L 97 09/27/21 04:02 96 H 33 H 155/81 H 90 09/27/21 02:51 36.9 C 94 H 25 H 155/84 H 89 L 09/26/21 23:11 91 H 30 H 132/64 93 Laboratory Results Laboratory Results - last 24 hr 09/26/21 09/26/21 09/26/21 10:42 10:46 12:46 VBG pH Sodium 125 L 126 L Potassium 3.7 D 4.0 Chloride 93 L 94 L Carbon Dioxide 16 L 17 L Anion Gap 16.0 H 15.0 H BUN 80 H 82 H Creatinine 3.13 H D 3.05 H Est Cr Clr Drug Dosing 40.1 41.2 Est GFR ( Amer) 24.8 25.6 Est GFR (Non-Af Amer) 21.4 22.1 BUN/Creatinine Ratio 25.5 H 26.8 H Glucose 537 H* 530 H* POC Glucose 516 H* Calcium 7.3 L 7.4 L Phosphorus 4.7 D Magnesium 2.3 2.3 C-Reactive Protein 10.50 H Beta-Hydroxybutyric Acd 17.54 H 9.59 H 09/26/21 09/26/21 09/26/21 12:49 15:04 16:14 VBG pH 7.37 Sodium Potassium Chloride Carbon Dioxide Anion Gap BUN Creatinine Est Cr Clr Drug Dosing Est GFR ( Amer) Est GFR (Non-Af Amer) BUN/Creatinine Ratio Glucose POC Glucose 419 H* 401 H* Calcium Phosphorus Magnesium C-Reactive Protein Beta-Hydroxybutyric Acd 09/26/21 09/26/21 09/26/21 16:34 16:34 17:02 VBG pH 7.37 Sodium 128 L Potassium 3.9 Chloride 97 L Carbon Dioxide 18 L Anion Gap 13.0 H BUN 82 H Creatinine 2.89 H Est Cr Clr Drug Dosing 43.5 Est GFR ( Amer) 27.3 Est GFR (Non-Af Amer) 23.5 BUN/Creatinine Ratio 28.3 H Glucose 381 H* POC Glucose 345 H* Calcium 7.0 L Phosphorus 2.8 D Magnesium 2.1 C-Reactive Protein Beta-Hydroxybutyric Acd 3.02 H 09/26/21 09/26/21 09/26/21 18:03 19:21 20:34 VBG pH Sodium 129 L Potassium Chloride 99 Carbon Dioxide 19 L Anion Gap 11.0 BUN 82 H Creatinine 2.78 H Est Cr Clr Drug Dosing 45.2 Est GFR ( Amer) 28.6 Est GFR (Non-Af Amer) 24.7 BUN/Creatinine Ratio 29.6 H Glucose 249 H POC Glucose 310 H* 300 H Calcium 7.3 L Phosphorus 2.7 Magnesium C-Reactive Protein Beta-Hydroxybutyric Acd 09/26/21 09/26/21 09/26/21 20:34 20:35 21:49 VBG pH 7.38 Sodium Potassium 3.5 Chloride Carbon Dioxide Anion Gap BUN Creatinine Est Cr Clr Drug Dosing Est GFR ( Amer) Est GFR (Non-Af Amer) BUN/Creatinine Ratio Glucose POC Glucose 258 H Calcium Phosphorus Magnesium 2.3 C-Reactive Protein Beta-Hydroxybutyric Acd 09/26/21 09/26/21 09/26/21 21:57 23:14 23:59 VBG pH Sodium Potassium Chloride Carbon Dioxide Anion Gap BUN Creatinine Est Cr Clr Drug Dosing Est GFR ( Amer) Est GFR (Non-Af Amer) BUN/Creatinine Ratio Glucose POC Glucose 246 H 208 H 201 H Calcium Phosphorus Magnesium C-Reactive Protein Beta-Hydroxybutyric Acd 09/27/21 09/27/21 09/27/21 00:39 00:39 01:02 VBG pH 7.38 Sodium 130 L Potassium 3.7 Chloride 99 Carbon Dioxide 22 Anion Gap 9.0 BUN 83 H Creatinine 2.68 H Est Cr Clr Drug Dosing 46.9 Est GFR ( Amer) 29.9 Est GFR (Non-Af Amer) 25.8 BUN/Creatinine Ratio 31.0 H Glucose 177 H POC Glucose 160 H Calcium 7.6 L Phosphorus 2.6 Magnesium 2.4 C-Reactive Protein Beta-Hydroxybutyric Acd 09/27/21 09/27/21 09/27/21 01:24 01:41 02:03 VBG pH Sodium Potassium Chloride Carbon Dioxide Anion Gap BUN Creatinine Est Cr Clr Drug Dosing Est GFR ( Amer) Est GFR (Non-Af Amer) BUN/Creatinine Ratio Glucose POC Glucose 175 H 148 H 159 H Calcium Phosphorus Magnesium C-Reactive Protein Beta-Hydroxybutyric Acd 09/27/21 09/27/21 09/27/21 02:44 04:05 04:31 VBG pH Sodium 130 L Potassium 3.6 Chloride 98 Carbon Dioxide 21 Anion Gap 11.0 BUN 80 H Creatinine 2.52 H Est Cr Clr Drug Dosing 49.9 Est GFR ( Amer) 32.2 Est GFR (Non-Af Amer) 27.8 BUN/Creatinine Ratio 31.9 H Glucose 216 H POC Glucose 203 H 221 H Calcium 7.7 L Phosphorus 3.1 Magnesium 2.4 C-Reactive Protein Beta-Hydroxybutyric Acd 09/27/21 09/27/21 09/27/21 04:31 05:04 06:04 VBG pH 7.36 Sodium Potassium Chloride Carbon Dioxide Anion Gap BUN Creatinine Est Cr Clr Drug Dosing Est GFR ( Amer) Est GFR (Non-Af Amer) BUN/Creatinine Ratio Glucose POC Glucose 223 H 244 H Calcium Phosphorus Magnesium C-Reactive Protein Beta-Hydroxybutyric Acd 09/27/21 09/27/21 09/27/21 08:16 08:27 08:27 VBG pH 7.39 Sodium 130 L Potassium 3.5 Chloride 98 Carbon Dioxide 17 L Anion Gap 16.0 H BUN 77 H Creatinine 2.31 H Est Cr Clr Drug Dosing 54.7 Est GFR ( Amer) 35.8 Est GFR (Non-Af Amer) 30.9 BUN/Creatinine Ratio 33.3 H Glucose 271 H POC Glucose 278 H Calcium 7.5 L Phosphorus 3.0 Magnesium 2.1 C-Reactive Protein Beta-Hydroxybutyric Acd Medications Administered Current Inpatient Medications Acetaminophen (Acetaminophen 325 Mg Tab) 650 mg PO Q4H PRN PRN Reason: Pain or Fever Stop: 10/26/21 01:36 Albuterol (Albuterol Hfa 8 Gm Inhaler) 2 puffs INH Q2R PRN PRN Reason: Shortness Of Breath Stop: 10/26/21 05:01 Atorvastatin Calcium (Atorvastatin 20 Mg Tab) 20 mg PO DAILY [facility] Stop: 10/26/21 08:59 Last Admin: 09/27/21 08:34 Dose: 20 mg Documented by: Baricitinib (Baricitinib 2 Mg Tab) 2 mg PO DAILY [facility]; Protocol Stop: 10/11/21 08:59 Dextrose (Dextrose 50% 50 Ml Syringe) 25 - 50 ml IV UD PRN; Protocol PRN Reason: Hypoglycemia Protocol Stop: 10/26/21 01:36 Glucagon (Glucagon For Inj 1 Mg Vial) 1 mg SQ UD PRN; Protocol PRN Reason: Hypoglycemia Protocol Stop: 10/26/21 01:36 Glucose (Glucose 10 Tabs/Tube) 4 - 8 tabs PO UD PRN; Protocol PRN Reason: Hypoglycemia Protocol Stop: 10/26/21 01:36 Glucose (Glucose 40% Gel 15 Gm Tube) 15 - 30 gm PO UD PRN; Protocol PRN Reason: Hypoglycemia Protocol Stop: 10/26/21 01:36 Heparin Sodium (Porcine) (Heparin Sod 5,000 Unit/0.5 Ml Vial) 5,000 units SQ Q8 [facility] Stop: 10/26/21 05:59 Last Admin: 09/27/21 05:01 Dose: 5,000 units Documented by: Dexamethasone 10 mg/ Syringe 2.5 mls @ 1 mls/min IV Q24H [facility] Stop: 10/26/21 08:59 Last Admin: 09/27/21 08:32 Dose: 1 mls/min Documented by: Remdesivir 100 mg/ Sodium (Chloride) 250 mls @ 250 mls/hr IV Q24H [facility]; Protocol Stop: 09/30/21 12:59 Azithromycin 250 mg/ Dextrose 252.5 mls @ 125 mls/hr IV Q24H [facility]; Protocol Stop: 10/04/21 08:59 Insulin Human Regular 250 (units/ Sodium Chloride) 250 mls @ 5.6 mls/hr IV .Q24H [facility]; Protocol Stop: 10/26/21 12:59 Last Titration: 09/27/21 01:09 Dose: 0 units/hr, 0 mls/hr Documented by: Sodium Bicarbonate 75 meq/ (Sodium Chloride) 1,075 mls @ 80 mls/hr IV .[id number] [facility] Stop: 09/27/21 23:56 Insulin Aspart (Insulin Aspart 100 Units/Ml 3 Ml Pen) 0 units SC ACHS [facility] Stop: 10/26/21 12:59 Last Admin: 09/26/21 22:05 Dose: Not Given Documented by: Insulin Glargine (Insulin Glargine Solostar 100 Units/Ml 3 Ml Pen) 25 units SC QAM [facility] Stop: 10/27/21 08:59 Last Admin: 09/27/21 08:32 Dose: 25 units Documented by: Insulin Human NPH (Insulin Human Nph) 30 units SC QAM [facility] Stop: 10/27/21 08:59 Last Admin: 09/27/21 08:34 Dose: 30 units Documented by: Metoprolol Succinate (Metoprolol Succ 50mg Ext Rel Tab) 50 mg PO DAILY [facility] Stop: 10/26/21 08:59 Last Admin: 09/27/21 08:34 Dose: 50 mg Documented by: Miscellaneous (Carbohydrates For Hypoglycemia ) 15 - 30 gm PO UD PRN PRN Reason: Hypoglycemia Protocol Stop: 10/26/21 01:36 Miscellaneous (Stat Iv) 1 ea N/A NOW STA Stop: 09/27/21 10:21 Miscellaneous Information (Pharmacy Glycemic Mgmt Consult) 1 ea N/A UD PRN PRN Reason: Consult Stop: 10/26/21 07:52 Ondansetron HCl (Ondansetron Inj 2 Mg/Ml 2 Ml Vial) 4 mg IV Q6H PRN PRN Reason: Nausea Stop: 10/26/21 01:36 Sodium Chloride (Sodium Chloride 0.9% 10ml Flush) 30 ml IV DAILY@1300 [facility] Stop: 09/30/21 13:01 Last Admin: 09/26/21 08:54 Dose: 30 ml Documented by: PG Care Time/CCT Total # of Minutes Spent Total Time Spent with Patient: Total time spent is greater than 50% in coordination of care (as documented) at patient's floor/unit and/or counseling patient: Critical Care Time: Yes Total Critical Care Time: 33 This case had a high probability of a clinically significant, sudden, or life threatening deterioration of this patient's condition which required my full and direct attention, intervention and personal management. Coding Level of Care Code 84094 Subseq Hosp Care Lvl 3 (25 - SIGNIFICANT, SEPARATELY IDENTIFIABLE ) Diagnoses COVID-19 U07.1 Respiratory failure J96.01 Chronicity: acute Respiratory failure complication: hypoxia LAURENT (acute kidney injury) N17.9 Type 2 diabetes mellitus E11.9 Hypertriglyceridemia E78.1 Hypertension I10 Metabolic acidosis E87.2 Additional Codes Critical Care Time - Critical Care Time: Yes ([id number]) (1) Respiratory failure Chronicity: acute Respiratory failure complication: hypoxia Qualified Cod e(s): J96.01 - Acute respiratory failure with hypoxia
[2021-09-27] MEDS ORDERED: SODIUM BICARBONATE 8.4% 75 MEQ in SODIUM CHLORIDE 0.45 % 1,000 ML IV SCH (10:30)
[2021-09-27] MEDS ORDERED: INSULIN PROTOCOL GOAL RANGE ONE (11:50)
[2021-09-27] MEDS ORDERED: STAT IV Infusion **Titration per Protocol STA (11:50)
[2021-09-27] MEDS: FAMOTIDINE 20 MG in SYRINGE 3 ML IV SCH ×2 (12:15→21:50)
[2021-09-27] MEDS: REMDESIVIR 100 MG in SODIUM CHLORIDE 0.9% 230 ML IV SCH (12:29)
[2021-09-27] MEDS: SODIUM CHLORIDE 0.9% 10ML FLUSH IV SCH (13:35)
--- NOTE | 2021-09-27 14:11 | Pharmacy Report ---
Pharmacy Glycemic Short Note 2 - Date of Service September 27, 2021 - Glycemic Short BSG Results (Last 24 hours): 09/26/21 09/26/21 09/26/21 15:04 16:14 16:34 Glucose 381 H* POC Glucose 419 H* 401 H* 09/26/21 09/26/21 09/26/21 17:02 18:03 19:21 Glucose POC Glucose 345 H* 310 H* 300 H 09/26/21 09/26/21 09/26/21 20:34 20:35 21:57 Glucose 249 H POC Glucose 258 H 246 H 09/26/21 09/26/21 09/27/21 23:14 23:59 00:39 Glucose 177 H POC Glucose 208 H 201 H 09/27/21 09/27/21 09/27/21 01:02 01:24 01:41 Glucose POC Glucose 160 H 175 H 148 H 09/27/21 09/27/21 09/27/21 02:03 02:44 04:05 Glucose POC Glucose 159 H 203 H 221 H 09/27/21 09/27/21 09/27/21 04:31 05:04 06:04 Glucose 216 H POC Glucose 223 H 244 H 09/27/21 09/27/21 09/27/21 08:16 08:27 10:19 Glucose 271 H POC Glucose 278 H 300 H 09/27/21 09/27/21 09/27/21 11:29 12:29 13:29 Glucose POC Glucose 324 H* 300 H 276 H OUTPATIENT ANTIDIABETIC REGIMEN: * Glimepiride 4 mg daily * Metformin 1000 mg PO BID ASSESSMENT: 09/27 * Insulin drip discontinued overnight as AG acidosis had resolved. BSGs did trend back up into the upper 200's this AM and AG acidosis has returned despite receiving 50 units Lantus last evening. * AG 16 and Bicarb 17 on last chemistry. Insulin drip resumed at this time. Orders obtained for K+ repletion due to continued insulin drip and new order for Bicarb drip. Renal impairment continues however SCr improving and UOP increasing. * Will continue SQ Lantus and NPH this AM however as this will help with future transition to SQ basal/bolus regimen 09/26 * 56 y/o M admitted for acute respiratory failure due to Covid pneumonia. Pt with history of Type 2 diabetes managed on oral meds only at home. * Pt presented with a BSG of 259 last night. He received Dexamethasone IV at that time. BSGs continued to trend up to 511 mg/dl this AM. * Since patient's K was low at 3.0 last night, IV KCL riders ordered today AM. K improved to 3.7. * He received Lantus, NPH and Novolog insulin this AM but made no difference in the BSGs. * Mild DKA noted. Insulin drip started per DKA protocol. PLAN FOR INPATIENT GLYCEMIC CONTROL: * Hold outpatient oral diabetes medications (glimepiride, metformin) * Continue IV insulin drip, change goal range to 120-180, adjust per rate change calculator * Basal insulin * Lantus 25 units SQ BID (equivalent to "moderate" stress dosing based upon adjusted BW) * NPH 30 units SQ Q AM with IV dexamethasone 10mg * Bolus insulin * NovoLog SQ * Nutritional / Prandial insulin per carb ratio 1 unit per 4 grams CHOs consumed PLAN FOR DISCHARGE: * to be determined
--- NOTE | 2021-09-27 14:28 | Pharmacy Report ---
Pharmacy Glycemic Short Note 2 - Date of Service September 27, 2021 - Glycemic Short BSG Results (Last 24 hours): 09/26/21 09/26/21 09/26/21 15:04 16:14 16:34 Glucose 381 H* POC Glucose 419 H* 401 H* 09/26/21 09/26/21 09/26/21 17:02 18:03 19:21 Glucose POC Glucose 345 H* 310 H* 300 H 09/26/21 09/26/21 09/26/21 20:34 20:35 21:57 Glucose 249 H POC Glucose 258 H 246 H 09/26/21 09/26/21 09/27/21 23:14 23:59 00:39 Glucose 177 H POC Glucose 208 H 201 H 09/27/21 09/27/21 09/27/21 01:02 01:24 01:41 Glucose POC Glucose 160 H 175 H 148 H 09/27/21 09/27/21 09/27/21 02:03 02:44 04:05 Glucose POC Glucose 159 H 203 H 221 H 09/27/21 09/27/21 09/27/21 04:31 05:04 06:04 Glucose 216 H POC Glucose 223 H 244 H 09/27/21 09/27/21 09/27/21 08:16 08:27 10:19 Glucose 271 H POC Glucose 278 H 300 H 09/27/21 09/27/21 09/27/21 11:29 12:29 13:29 Glucose POC Glucose 324 H* 300 H 276 H OUTPATIENT ANTIDIABETIC REGIMEN: * Glimepiride 4 mg daily * Metformin 1000 mg PO BID ASSESSMENT: 09/27 * 09/26 * 56 y/o M admitted for acute respiratory failure due to Covid pneumonia. Pt with history of Type 2 diabetes managed on oral meds only at home. * Pt presented with a BSG of 259 last night. He received Dexamethasone IV at that time. BSGs continued to trend up to 511 mg/dl this AM. * Since patient's K was low at 3.0 last night, IV KCL riders ordered today AM. K improved to 3.7. * He received Lantus, NPH and Novolog insulin this AM but made no difference in the BSGs. * Mild DKA noted. Insulin drip started per DKA protocol. PLAN FOR INPATIENT GLYCEMIC CONTROL: * Hold outpatient oral diabetes medications * Insulin drip started per DKA protocol. * Basal insulin * Lantus 7 units SQ today AM. Re-assess ongoing dose. * NPH 40 units x 1 dose given this AM. Re-assess tomorrow. * Bolus insulin * NovoLog per scale ACHS or Q6hrs while NPO * Goal Range: Low 140 mg/dL - High 180 mg/dL * Correction Factor: ___ mg/dL/unit * Nutritional / Prandial insulin per carb ratio per insulin drip calculator PLAN FOR DISCHARGE: *
[2021-09-27] MEDS: POTASSIUM CHLORIDE / WTR 10 MEQ/100 ML PLCT IV SCH ×4 (14:45→17:37)
[2021-09-27 18:19] LABS: SARS CoV2 RNA(COVID-19) InHosp POSITIVE (Negative)
[2021-09-27] MEDS: INSULIN GLARGINE SOLOSTAR 100 UNITS/ML 3 ML PEN SC SCH (20:34)
[2021-09-28] MEDS: HEPARIN SOD 5,000 UNIT/0.5 ML VIAL SQ SCH ×3 (06:34→21:21)
[2021-09-28] MEDS: AZITHROMYCIN 250 MG in DEXTROSE 5% 250 ML IV SCH (08:31)
[2021-09-28] MEDS: FAMOTIDINE 20 MG in SYRINGE 3 ML IV SCH ×2 (08:31→21:21)
[2021-09-28] MEDS: BARICITINIB 2 MG TAB PO SCH (08:32)
[2021-09-28] MEDS: ATORVASTATIN 20 MG TAB PO SCH (08:33)
[2021-09-28] MEDS: dexAMETHasone 10 MG in SYRINGE 0 ML IV SCH ×2 (08:33→09:50)
[2021-09-28] MEDS: METOPROLOL SUCC 50MG EXT REL TAB PO SCH (08:33)
[2021-09-28 08:36] LABS: C Reactive Protein 5.02 mg/dl (0-0.29); Creatinine Clr Calc Pharmacy 70.2 ml/min; Est GFR (African American) 48.7 ml/min
[2021-09-28] MEDS: INSULIN ASPART 100 UNITS/ML 3 ML PEN SC SCH ×4 (08:58→21:17)
[2021-09-28] MEDS: INSULIN HUMAN NPH SC SCH (09:00)
[2021-09-28] MEDS: INSULIN GLARGINE SOLOSTAR 100 UNITS/ML 3 ML PEN SC SCH (09:00)
--- NOTE | 2021-09-28 10:16 | Hospitalist Progress Note ---
Date of Service September 28, 2021 Assessment & Plan (1) COVID-19: Plan: 56yo male with history of DM, HTN, HLP and Obesity (BMI of 46) presenting with acute hypoxic respiratory failure secondary to Covid-19 PNA. Patient is not vaccinated against Covid-19. He has been ill approximately 1 week. able to tolerate 40L 100% today, but still tachypneic and belly breathing continue BIPAP HS encouraged him to get on his belly, the best he could do was lay on his side high risk for needing intubated dexamethasone 6mg IV daily, day 4 Remdesivir IV daily, day 4 renal function better, started baricitinib, day 2 Zithromax daily x 5 days, day 4 encouraged him, inflammatory markers down, Cr improved, glucose improved he needs to focus on eating and laying prone during the day if possible (2) Respiratory failure: Plan: increased work of breathing, tachypnea on Vapotherm no role for Lasix, Cr is recovering at 1.7 (3) LAURENT (acute kidney injury): Plan: Elevation of BUN to 76 from 23 and Cr of 3.63 from prior value of 1.12. Suspect dehydration contributing as well as underlying illness, Covid with hypoxia. He was administered 2L NS in the ER. hold lisinopril/HCTZ which likely compounded the issue Cr improved to 1.7, making urine, placed cote, adequate UO, actually negative balance awaiting BMP results will stop Bicarb today (4) Type 2 diabetes mellitus: Plan: profound hyperglycemia, glucose was 500 on 09/27 mild DKA, elevated beta hydroxy butyrate treated with insulin drip, sugars now consistently < 200 defer to pharmacy on transitioning to basal bolus insulin (5) Metabolic acidosis: Plan: due to DKA, renal failure place on sodium bicarb 75 plus 1/2 NSS at 80cc/hr awaiting HCO3 results today (6) Hypertriglyceridemia: Plan: Chronic -Continue Atorvastatin (7) Hypertension: Plan: Chronic -Continue Metoprolol 50mg po daily -Hold Lisinopril and HCTZ in setting of LAURENT Plan: F/E/N - gentle fluids, cannot eat or drink due to BIPAP Ppx - Lovenox Pepcid BID Code - Full per discussion with patient Dispo - Admit to PCU Admission and Anticipated Discharge Date Admission Date: September 25, 2021 Subjective patient stable on Vapotherm this morning, 40L and 100%, saturations 88-90% he ate a little bit of breakfast he slept with the BIPAP last night reviewed labs, Cr down to 1.7, CRP down to 5, sugars are consistently < 200, working to get off the insulin drip pharmacy managing Review of Systems Review of Systems: All systems reviewed & are unremarkable except as noted in Subjective Physical Exam Physical Exam: General: well developed, obese male, ill appearing, on Vapotherm Neck: thick short neck, trachea midline, normal thyroid Lungs: clear to auscultation bilaterally, + tachypnea (30's), + accessory muscle use on Vapotherm Heart: regular S1 and S2, no murmur, peripheral pulses normal, capillary refill normal, no edema Abdomen: soft, NT, ND, + BS, no hepatomegaly, normal to percussion Extremities: normal in appearance, no cyanosis, no petechiae, strength is 5/5 bilaterally Neuro: awake, cooperative, moves all extremities, no focal motor deficits, CN II-XII intact, sensation in extremities intact, normal speech Skin: warm, dry, no rash, normal turgor Psych: Awake, alert oriented x 3, anxious Results & Data Results & Data ([facility]) Vital Signs (Past 12 Hours) Vital Signs Temp Pulse Pulse Resp BP Pulse Ox Pulse Ox 09/28/21 08:35 94 H 22 87 L 09/28/21 07:53 36.6 C 87 26 H 151/72 H 90 09/28/21 06:40 87 24 94 09/28/21 03:55 36.7 C 89 22 138/70 91 09/28/21 02:10 81 28 H 94 09/28/21 01:00 95 09/28/21 00:00 89 09/27/21 23:46 37.6 C H 92 H 31 H 141/71 H 90 Laboratory Results Laboratory Results - last 24 hr 09/25/21 09/27/21 09/27/21 21:20 10:19 11:29 Creatinine Est Cr Clr Drug Dosing Est GFR ( Amer) Est GFR (Non-Af Amer) POC Glucose 300 H 324 H* AST ALT C-Reactive Protein SARS-CoV-2 (PCR) POSITIVE A* 09/27/21 09/27/21 09/27/21 12:29 13:29 14:31 Creatinine Est Cr Clr Drug Dosing Est GFR ( Amer) Est GFR (Non-Af Amer) POC Glucose 300 H 276 H 273 H AST ALT C-Reactive Protein SARS-CoV-2 (PCR) 09/27/21 09/27/21 09/27/21 15:29 16:31 17:35 Creatinine Est Cr Clr Drug Dosing Est GFR ( Amer) Est GFR (Non-Af Amer) POC Glucose 251 H 221 H 196 H AST ALT C-Reactive Protein SARS-CoV-2 (PCR) 09/27/21 09/27/21 09/27/21 18:33 20:29 22:25 Creatinine Est Cr Clr Drug Dosing Est GFR ( Amer) Est GFR (Non-Af Amer) POC Glucose 190 H 150 H 110 H AST ALT C-Reactive Protein SARS-CoV-2 (PCR) 09/27/21 09/27/21 09/28/21 23:24 23:53 00:58 Creatinine Est Cr Clr Drug Dosing Est GFR ( Amer) Est GFR (Non-Af Amer) POC Glucose 83 126 H 124 H AST ALT C-Reactive Protein SARS-CoV-2 (PCR) 09/28/21 09/28/21 09/28/21 02:02 03:02 03:50 Creatinine Est Cr Clr Drug Dosing Est GFR ( Amer) Est GFR (Non-Af Amer) POC Glucose 112 H 105 H 115 H AST ALT C-Reactive Protein SARS-CoV-2 (PCR) 09/28/21 09/28/21 09/28/21 04:10 04:16 05:12 Creatinine Est Cr Clr Drug Dosing Est GFR ( Amer) Est GFR (Non-Af Amer) POC Glucose 117 H 133 H 152 H AST ALT C-Reactive Protein SARS-CoV-2 (PCR) 09/28/21 09/28/21 09/28/21 06:38 07:41 08:07 Creatinine 1.79 H D Est Cr Clr Drug Dosing 70.2 Est GFR ( Amer) 48.7 Est GFR (Non-Af Amer) 42.0 POC Glucose 130 H 136 H AST 90 H ALT 83 H C-Reactive Protein 5.02 H SARS-CoV-2 (PCR) Medications Administered Current Inpatient Medications Acetaminophen (Acetaminophen 325 Mg Tab) 650 mg PO Q4H PRN PRN Reason: Pain or Fever Stop: 01/04/22 01:36 Albuterol (Albuterol Hfa 8 Gm Inhaler) 2 puffs INH Q2R PRN PRN Reason: Shortness Of Breath Stop: 10/26/21 05:01 Atorvastatin Calcium (Atorvastatin 20 Mg Tab) 20 mg PO DAILY [facility] Stop: 10/26/21 08:59 Last Admin: 09/28/21 08:33 Dose: 20 mg Documented by: Baricitinib (Baricitinib 2 Mg Tab) 2 mg PO DAILY [facility]; Protocol Stop: 10/11/21 08:59 Last Admin: 09/28/21 08:32 Dose: 2 mg Documented by: Dextrose (Dextrose 50% 50 Ml Syringe) 25 - 50 ml IV UD PRN; Protocol PRN Reason: Hypoglycemia Protocol Stop: 10/26/21 01:36 Last Admin: 09/27/21 23:45 Dose: 25 ml Documented by: Glucagon (Glucagon For Inj 1 Mg Vial) 1 mg SQ UD PRN; Protocol PRN Reason: Hypoglycemia Protocol Stop: 10/26/21 01:36 Glucose (Glucose 10 Tabs/Tube) 4 - 8 tabs PO UD PRN; Protocol PRN Reason: Hypoglycemia Protocol Stop: 10/26/21 01:36 Glucose (Glucose 40% Gel 15 Gm Tube) 15 - 30 gm PO UD PRN; Protocol PRN Reason: Hypoglycemia Protocol Stop: 10/26/21 01:36 Heparin Sodium (Porcine) (Heparin Sod 5,000 Unit/0.5 Ml Vial) 5,000 units SQ Q8 [facility] Stop: 10/26/21 05:59 Last Admin: 09/28/21 06:34 Dose: 5,000 units Documented by: Dexamethasone 10 mg/ Syringe 2.5 mls @ 1 mls/min IV Q24H [facility] Stop: 10/26/21 08:59 Last Admin: 09/28/21 09:50 Dose: 1 mls/min Documented by: Remdesivir 100 mg/ Sodium (Chloride) 250 mls @ 250 mls/hr IV Q24H [facility]; Protocol Stop: 09/30/21 12:59 Last Infusion: 09/27/21 13:41 Dose: Infused Documented by: Azithromycin 250 mg/ Dextrose 252.5 mls @ 125 mls/hr IV Q24H [facility]; Protocol Stop: 10/04/21 08:59 Last Admin: 09/28/21 08:31 Dose: 125 mls/hr Documented by: Insulin Human Regular 250 (units/ Sodium Chloride) 250 mls @ 3 mls/hr IV .Q24H [facility]; Protocol Stop: 10/26/21 12:59 Last Titration: 09/28/21 09:00 Dose: 3 units/hr, 3 mls/hr Documented by: Famotidine 20 mg/ Syringe 5 mls @ 2.5 mls/min IV BID [facility] Stop: 10/27/21 10:59 Last Admin: 09/28/21 08:31 Dose: 2.5 mls/min Documented by: Insulin Aspart (Insulin Aspart 100 Units/Ml 3 Ml Pen) 0 units SC ACHS [facility] Stop: 10/26/21 12:59 Last Admin: 09/28/21 08:58 Dose: Not Given Documented by: Insulin Glargine (Insulin Glargine Solostar 100 Units/Ml 3 Ml Pen) 25 units SC BID [facility] Stop: 10/27/21 20:59 Last Admin: 09/28/21 09:00 Dose: 25 units Documented by: Insulin Human NPH (Insulin Human Nph) 30 units SC QAM [facility] Stop: 10/27/21 08:59 Last Admin: 09/28/21 09:00 Dose: 30 units Documented by: Metoprolol Succinate (Metoprolol Succ 50mg Ext Rel Tab) 50 mg PO DAILY [facility] Stop: 10/26/21 08:59 Last Admin: 09/28/21 08:33 Dose: 50 mg Documented by: Miscellaneous (Carbohydrates For Hypoglycemia ) 15 - 30 gm PO UD PRN PRN Reason: Hypoglycemia Protocol Stop: 10/26/21 01:36 Miscellaneous Information (Pharmacy Glycemic Mgmt Consult) 1 ea N/A UD PRN PRN Reason: Consult Stop: 10/26/21 07:52 Ondansetron HCl (Ondansetron Inj 2 Mg/Ml 2 Ml Vial) 4 mg IV Q6H PRN PRN Reason: Nausea Stop: 10/26/21 01:36 Sodium Chloride (Sodium Chloride 0.9% 10ml Flush) 30 ml IV DAILY@1300 [facility] Stop: 09/30/21 13:01 Last Admin: 09/27/21 13:35 Dose: 30 ml Documented by: PG Care Time/CCT Total # of Minutes Spent Total Time Spent with Patient: Total time spent is greater than 50% in coordination of care (as documented) at patient's floor/unit and/or counseling patient: Coding Level of Care Code 07541 Subseq Hosp Care Lvl 3 Diagnoses COVID-19 U07.1 Respiratory failure J96.01 Chronicity: acute Respiratory failure complication: hypoxia LAURENT (acute kidney injury) N17.9 Type 2 diabetes mellitus E11.9 Metabolic acidosis E87.2 Hypertriglyceridemia E78.1 Hypertension I10 (1) Respiratory failure Chronicity: acute Respiratory failure complication: hypoxia Qualified Code(s): J96.01 - Acute respiratory failure with hypoxia
[2021-09-28 11:12] LABS: BUN Creatinine Ratio 33.1 (10-20); Calcium 7.7 mg/dl (8.5-10.1); Creatinine Clr Calc Pharmacy 70.6 ml/min; Est GFR (Non-African American) 42.3 ml/min; Potassium 3.9 mmol/L (3.5-5.1)
[2021-09-28] MEDS ORDERED: INSULIN GLARGINE SOLOSTAR 100 UNITS/ML 3 ML PEN SC ONE (12:00)
--- NOTE | 2021-09-28 12:05 | Pharmacy Report ---
Pharmacy Glycemic Short Note 2 - Date of Service September 28, 2021 - Glycemic Short BSG Results (Last 24 hours): 09/27/21 09/27/21 09/27/21 12:29 13:29 14:31 Glucose POC Glucose 300 H 276 H 273 H 09/27/21 09/27/21 09/27/21 15:29 16:31 17:35 Glucose POC Glucose 251 H 221 H 196 H 09/27/21 09/27/21 09/27/21 18:33 20:29 22:25 Glucose POC Glucose 190 H 150 H 110 H 09/27/21 09/27/21 09/28/21 23:24 23:53 00:58 Glucose POC Glucose 83 126 H 124 H 09/28/21 09/28/21 09/28/21 02:02 03:02 03:50 Glucose POC Glucose 112 H 105 H 115 H 09/28/21 09/28/21 09/28/21 04:10 04:16 05:12 Glucose POC Glucose 117 H 133 H 152 H 09/28/21 09/28/21 09/28/21 06:38 07:46 08:07 Glucose 133 H POC Glucose 130 H 136 H 09/28/21 10:14 Glucose POC Glucose 159 H OUTPATIENT ANTIDIABETIC REGIMEN: * Glimepiride 4 mg daily * Metformin 1000 mg PO BID ASSESSMENT: 09/28 * Insulin drip continues this AM at a stable rate of 3 units/hr with BSGs well controlled in the 130s * Chemistry this AM shows AG acidosis has resolved. Will increase basal insulin dose and transition off the insulin drip this afternoon. * Patient easily requires ~150 units/day of insulin with current stressors based upon drip rates in addition to SQ given over last 24 hrs * Dex 10 mg IV Q AM continues and he appears to be tolerating PO at times 09/27 * Insulin drip discontinued overnight as AG acidosis had resolved. BSGs did trend back up into the upper 200's this AM and AG acidosis has returned despite receiving 50 units Lantus last evening. * AG 16 and Bicarb 17 on last chemistry. Insulin drip resumed at this time. Orders obtained for K+ repletion due to continued insulin drip and new order for Bicarb drip. Renal impairment continues however SCr improving and UOP increasing. * Will continue SQ Lantus and NPH this AM however as this will help with future transition to SQ basal/bolus regimen 09/26 * 56 y/o M admitted for acute respiratory failure due to Covid pneumonia. Pt with history of Type 2 diabetes managed on oral meds only at home. * Pt presented with a BSG of 259 last night. He received Dexamethasone IV at that time. BSGs continued to trend up to 511 mg/dl this AM. * Since patient's K was low at 3.0 last night, IV KCL riders ordered today AM. K improved to 3.7. * He received Lantus, NPH and Novolog insulin this AM but made no difference in the BSGs. * Mild DKA noted. Insulin drip started per DKA protocol. PLAN FOR INPATIENT GLYCEMIC CONTROL: * Hold outpatient oral diabetes medications (glimepiride, metformin) * Continue IV insulin drip, change goal range to 120-180, adjust per rate change calculator - but DC insulin drip at ~1400 today * Basal insulin * Lantus 35 units SQ x 1 now (~1200), then d/c insulin drip 2 hrs later * continue Lantus 25 units SQ BID (equivalent to "moderate" stress dosing based upon adjusted BW) * continue NPH 30 units SQ Q AM with IV dexamethasone 10mg * Bolus insulin * NovoLog SQ ACHS and at 0000 + 0400 tonight * Goal range: 110-140 mg/dL * Correction factor: 10 mg/dL/unit * Carb ratio 1 unit per 3 grams CHOs consumed PLAN FOR DISCHARGE: * to be determined
[2021-09-28] MEDS: REMDESIVIR 100 MG in SODIUM CHLORIDE 0.9% 230 ML IV SCH (12:57)
[2021-09-28] MEDS: SODIUM CHLORIDE 0.9% 10ML FLUSH IV SCH (12:58)
[2021-09-28] MEDS: INSULIN REGULAR 250 UNITS in SODIUM CHLORIDE 0.9% 247.5 ML IV SCH (12:58)
[2021-09-28] MEDS ORDERED: [UNRECOGNIZED DRUG - REMARK] ONE (14:00)
[2021-09-28] MEDS ORDERED: INSULIN GLARGINE SOLOSTAR 100 UNITS/ML 3 ML PEN SC SCH (21:00)
[2021-09-29] MEDS: INSULIN ASPART 100 UNITS/ML 3 ML PEN SC SCH ×6 (00:04→21:27)
[2021-09-29] MEDS: HEPARIN SOD 5,000 UNIT/0.5 ML VIAL SQ SCH ×3 (06:24→21:12)
[2021-09-29 07:07] LABS: BUN Creatinine Ratio 32.8 (10-20); Calcium 7.5 mg/dl (8.5-10.1); Creatinine Clr Calc Pharmacy 82.2 ml/min; Est GFR (African American) 59.3 ml/min; Est GFR (Non-African American) 51.2 ml/min; Magnesium 2.3 mg/dl (1.8-2.4); Potassium 3.7 mmol/L (3.5-5.1)
--- NOTE | 2021-09-29 08:38 | Hospitalist Progress Note ---
Date of Service September 29, 2021 Assessment & Plan (1) COVID-19: Plan: 56yo male with history of DM, HTN, HLP and Obesity (BMI of 46) presenting with acute hypoxic respiratory failure secondary to Covid-19 PNA. Patient is not vaccinated against Covid-19. He has been ill approximately [address] back on 40L 100% today, see if he can stay on it all day continue BIPAP HS and intermittently during the day, only on 09/29 50%, very comfortable on BIPAP encouraged him to lay on his side remains at high risk of deteriorating dexamethasone 6mg IV daily, day 5 Remdesivir IV completed 5 days renal function better, started baricitinib, day 3 Zithromax daily completed 5 days inflammatory markers down, Cr improved, glucose improved he needs to focus on eating and laying prone during the day if possible (2) Respiratory failure: Plan: rotating between high flow and BIPAP, very comfortable on BIPAP no role for Lasix, Cr is recovering at 1.5 might use some Lasix tomorrow to encourage UO (3) LAURENT (acute kidney injury): Plan: Elevation of BUN to 76 from 23 and Cr of 3.63 from prior value of 1.12. Suspect dehydration contributing as well as underlying illness, Covid with hypoxia. He was administered 2L NS in the ER. hold lisinopril/HCTZ which likely compounded the issue Cr improved to 1.5, making urine, placed cote, adequate UO, actually negative balance K is stable, HCO2 is 26, no further bicarb needed (4) Type 2 diabetes mellitus: Plan: profound hyperglycemia, glucose was 500 on 09/27 mild DKA, elevated beta hydroxy butyrate treated with insulin drip, sugars now consistently < 200 transitioned to basal/bolus insulin, monitor closely HCO3 is normal today (5) Metabolic acidosis: Plan: due to DKA, renal failure placed on sodium bicarb 75 plus 1/2 NSS at 80cc/hr, now stopped HCO3 is now normal (6) Hypertriglyceridemia: Plan: Chronic -Continue Atorvastatin (7) Hypertension: Plan: Chronic -Continue Metoprolol 50mg po daily -Hold Lisinopril and HCTZ in setting of ALURENT may use some Lasix PRN to improve UO Plan: F/E/N - encourage PO intake today, place on high flow so he can eat Ppx - Lovenox Pepcid BID Code - Full per discussion with patient Dispo - Admit to PCU Admission and Anticipated Discharge Date Admission Date: September 25, 2021 Subjective patient is very comfortable on BIPAP 09/29 50% slept all night, no issues discussed plan for today, change to 40L 100%, try to stay off BIPAP all day, try to eat and drink reviewed labs, Cr is 1.5, K 3.7, sugar is < 200 will update his later I spoke to his nurse at the bedside, she understands the plan Review of Systems Review of Systems: All systems reviewed & are unremarkable except as noted in Subjective Constitutional: no fever Respiratory: + cough, + dyspnea and + dyspnea on exertion Cardiovascular: no chest pain Gastrointestinal: no abdominal pain, no nausea, no vomiting, no constipation and no diarrhea/loose stools Physical Exam Physical Exam: General: well developed, obese male, ill appearing, on Vapotherm Neck: thick short neck, trachea midline, normal thyroid Lungs: clear to auscultation bilaterally, normal effort with BIPAP, slight use of abdominal muscles, talking in full sentences Heart: regular S1 and S2, no murmur, peripheral pulses normal, capillary refill normal, no edema Abdomen: soft, NT, ND, + BS, no hepatomegaly, normal to percussion Extremities: normal in appearance, no cyanosis, no petechiae, strength is 5/5 bilaterally Neuro: awake, cooperative, moves all extremities, no focal motor deficits, CN II-XII intact, sensation in extremities intact, normal speech Skin: warm, dry, no rash, normal turgor Psych: Awake, alert oriented x 3, anxious Results & Data Results & Data ([facility]) Vital Signs (Past 12 Hours) Vital Signs Temp Pulse Pulse Resp BP Pulse Ox 09/29/21 07:49 36.6 C 75 20 133/96 92 09/29/21 03:23 36.6 C 61 15 128/76 93 09/29/21 02:46 63 24 92 09/29/21 01:38 76 09/28/21 23:38 66 25 H 92 09/28/21 22:30 36.5 C 77 23 124/75 92 09/28/21 21:04 81 24 93 Laboratory Results Laboratory Results - last 24 hr 09/28/21 09/28/21 09/28/21 07:41 07:46 10:14 VBG pH Sodium 137 D Potassium 3.9 Chloride 104 Carbon Dioxide 25 Anion Gap 8.0 BUN 59 H Creatinine 1.79 H D 1.78 H Est Cr Clr Drug Dosing 70.2 70.6 Est GFR ( Amer) 48.7 49.0 Est GFR (Non-Af Amer) 42.0 42.3 BUN/Creatinine Ratio 33.1 H Glucose 133 H POC Glucose 159 H Calcium 7.7 L Phosphorus Magnesium AST 90 H ALT 83 H C-Reactive Protein 5.02 H 09/28/21 09/28/21 09/28/21 12:14 16:18 20:05 VBG pH Sodium Potassium Chloride Carbon Dioxide Anion Gap BUN Creatinine Est Cr Clr Drug Dosing Est GFR ( Amer) Est GFR (Non-Af Amer) BUN/Creatinine Ratio Glucose POC Glucose 207 H 259 H 260 H Calcium Phosphorus Magnesium AST ALT C-Reactive Protein 09/29/21 09/29/21 09/29/21 00:02 04:13 06:18 VBG pH Sodium 141 Potassium 3.7 Chloride 108 H Carbon Dioxide 26 Anion Gap 7.0 BUN 50 H Creatinine 1.52 H Est Cr Clr Drug Dosing 82.2 Est GFR ( Amer) 59.3 Est GFR (Non-Af Amer) 51.2 BUN/Creatinine Ratio 32.8 H Glucose 182 H POC Glucose 221 H 187 H Calcium 7.5 L Phosphorus 3.0 Magnesium 2.3 AST 74 H ALT 76 C-Reactive Protein 09/29/21 09/29/21 06:23 07:47 VBG pH 7.41 Sodium Potassium Chloride Carbon Dioxide Anion Gap BUN Creatinine Est Cr Clr Drug Dosing Est GFR ( Amer) Est GFR (Non-Af Amer) BUN/Creatinine Ratio Glucose POC Glucose 183 H Calcium Phosphorus Magnesium AST ALT C-Reactive Protein Medications Administered Current Inpatient Medications Acetaminophen (Acetaminophen 325 Mg Tab) 650 mg PO Q4H PRN PRN Reason: Pain or Fever Stop: 10/26/21 01:36 Albuterol (Albuterol Hfa 8 Gm Inhaler) 2 puffs INH Q2R PRN PRN Reason: Shortness Of Breath Stop: 10/26/21 05:01 Atorvastatin Calcium (Atorvastatin 20 Mg Tab) 20 mg PO DAILY [facility] Stop: 10/26/21 08:59 Last Admin: 09/28/21 08:33 Dose: 20 mg Documented by: Baricitinib (Baricitinib 2 Mg Tab) 2 mg PO DAILY [facility]; Protocol Stop: 10/11/21 08:59 Last Admin: 09/28/21 08:32 Dose: 2 mg Documented by: Dextrose (Dextrose 50% 50 Ml Syringe) 25 - 50 ml IV UD PRN; Protocol PRN Reason: Hypoglycemia Protocol Stop: 10/26/21 01:36 Last Admin: 09/27/21 23:45 Dose: 25 ml Documented by: Glucagon (Glucagon For Inj 1 Mg Vial) 1 mg SQ UD PRN; Protocol PRN Reason: Hypoglycemia Protocol Stop: 10/26/21 01:36 Glucose (Glucose 10 Tabs/Tube) 4 - 8 tabs PO UD PRN; Protocol PRN Reason: Hypoglycemia Protocol Stop: 10/26/21 01:36 Glucose (Glucose 40% Gel 15 Gm Tube) 15 - 30 gm PO UD PRN; Protocol PRN Reason: Hypoglycemia Protocol Stop: 10/26/21 01:36 Heparin Sodium (Porcine) (Heparin Sod 5,000 Unit/0.5 Ml Vial) 5,000 units SQ Q8 [facility] Stop: 10/26/21 05:59 Last Admin: 09/29/21 06:24 Dose: 5,000 units Documented by: Dexamethasone 10 mg/ Syringe 2.5 mls @ 1 mls/min IV Q24H [facility] Stop: 10/26/21 08:59 Last Admin: 09/28/21 09:50 Dose: 1 mls/min Documented by: Remdesivir 100 mg/ Sodium (Chloride) 250 mls @ 250 mls/hr IV Q24H [facility]; Protocol Stop: 09/30/21 12:59 Last Infusion: 09/28/21 14:12 Dose: Infused Documented by: Azithromycin 250 mg/ Dextrose 252.5 mls @ 125 mls/hr IV Q24H [facility]; Protocol Stop: 10/04/21 08:59 Last Infusion: 09/28/21 10:41 Dose: Infused Documented by: Famotidine 20 mg/ Syringe 5 mls @ 2.5 mls/min IV BID [facility] Stop: 10/27/21 10:59 Last Admin: 09/28/21 21:21 Dose: 2.5 mls/min Documented by: Insulin Aspart (Insulin Aspart 100 Units/Ml 3 Ml Pen) 0 units SC ACHS [facility] Stop: 10/26/21 12:59 Last Admin: 09/28/21 21:17 Dose: 12 units Documented by: Insulin Aspart (Insulin Aspart 100 Units/Ml 3 Ml Pen) 0 units SC TODAY@0000,0400 [facility] Stop: 10/29/21 00:00 Last Admin: 09/29/21 04:21 Dose: 1 units Documented by: Insulin Glargine (Insulin Glargine Solostar 100 Units/Ml 3 Ml Pen) 40 units SC BID [facility] Stop: 10/29/21 08:59 Insulin Human NPH (Insulin Human Nph) 45 units SC QAM [facility] Stop: 10/29/21 08:59 Metoprolol Succinate (Metoprolol Succ 50mg Ext Rel Tab) 50 mg PO DAILY [facility] Stop: 10/26/21 08:59 Last Admin: 09/28/21 08:33 Dose: 50 mg Documented by: Miscellaneous (Carbohydrates For Hypoglycemia ) 15 - 30 gm PO UD PRN PRN Reason: Hypoglycemia Protocol Stop: 10/26/21 01:36 Miscellaneous Information (Pharmacy Glycemic Mgmt Consult) 1 ea N/A UD PRN PRN Reason: Consult Stop: 10/26/21 07:52 Ondansetron HCl (Ondansetron Inj 2 Mg/Ml 2 Ml Vial) 4 mg IV Q6H PRN PRN Reason: Nausea Stop: 10/26/21 01:36 Sodium Chloride (Sodium Chloride 0.9% 10ml Flush) 30 ml IV DAILY@1300 [facility] Stop: 09/30/21 13:01 Last Admin: 09/28/21 12:58 Dose: 30 ml Documented by: PG Care Time/CCT Total # of Minutes Spent Total Time Spent with Patient: Total time spent is greater than 50% in coordination of care (as documented) at patient's floor/unit and/or counseling patient: Coding Level of Care Code 72470 Subseq Hosp Care Lvl 3 Diagnoses COVID-19 U07.1 Respiratory failure J96.01 Chronicity: acute Respiratory failure complication: hypoxia LAURENT (acute kidney injury) N17.9 Type 2 diabetes mellitus E11.9 Metabolic acidosis E87.2 Hypertriglyceridemia E78.1 Hypertension I10 (1) Respiratory failure Chronicity: acute Respiratory failure complication: hypoxia Qualified Code(s): J96.01 - Acute respiratory failure with hypoxia
[2021-09-29] MEDS: dexAMETHasone 10 MG in SYRINGE 0 ML IV SCH (08:56)
[2021-09-29] MEDS: AZITHROMYCIN 250 MG in DEXTROSE 5% 250 ML IV SCH (08:56)
[2021-09-29] MEDS: FAMOTIDINE 20 MG in SYRINGE 3 ML IV SCH ×2 (08:56→21:54)
[2021-09-29] MEDS: ATORVASTATIN 20 MG TAB PO SCH (08:57)
[2021-09-29] MEDS: METOPROLOL SUCC 50MG EXT REL TAB PO SCH (08:57)
[2021-09-29] MEDS: BARICITINIB 2 MG TAB PO SCH (09:09)
[2021-09-29] MEDS: INSULIN GLARGINE SOLOSTAR 100 UNITS/ML 3 ML PEN SC SCH ×2 (09:29→21:28)
[2021-09-29] MEDS: INSULIN HUMAN NPH SC SCH (09:29)
[2021-09-29] MEDS: REMDESIVIR 100 MG in SODIUM CHLORIDE 0.9% 230 ML IV SCH (12:52)
[2021-09-29] MEDS: SODIUM CHLORIDE 0.9% 10ML FLUSH IV SCH (12:53)
--- NOTE | 2021-09-29 15:02 | Pharmacy Report ---
Pharmacy Glycemic Short Note 2 - Date of Service September 29, 2021 - Glycemic Short BSG Results (Last 24 hours): 09/28/21 09/28/21 09/29/21 16:18 20:05 00:02 Glucose POC Glucose 259 H 260 H 221 H 09/29/21 09/29/21 09/29/21 04:13 06:18 07:47 Glucose 182 H POC Glucose 187 H 183 H 09/29/21 11:45 Glucose POC Glucose 225 H OUTPATIENT ANTIDIABETIC REGIMEN: * Glimepiride 4 mg daily * Metformin 1000 mg PO BID ASSESSMENT: 09/29: * Patient transitioned off the insulin drip yesterday. * 125 units basal insulin administered yesterday - Fasting BSG 180s this AM - will continue a similar basal regimen today as fasting BSG may improve as we approach steady state on this dosage. More basal insulin will be provided as NPH given post-prandial hyperglycemia pattern. * Novolog CR/CF will continue as ordered - will monitor post-prandial trend. Thus far today BSG did not climb excessively following breakfast 09/28 * Insulin drip continues this AM at a stable rate of 3 units/hr with BSGs well controlled in the 130s * Chemistry this AM shows AG acidosis has resolved. Will increase basal insulin dose and transition off the insulin drip this afternoon. * Patient easily requires ~150 units/day of insulin with current stressors based upon drip rates in addition to SQ given over last 24 hrs * Dex 10 mg IV Q AM continues and he appears to be tolerating PO at times 09/27 * Insulin drip discontinued overnight as AG acidosis had resolved. BSGs did trend back up into the upper 200's this AM and AG acidosis has returned despite receiving 50 units Lantus last evening. * AG 16 and Bicarb 17 on last chemistry. Insulin drip resumed at this time. Orders obtained for K+ repletion due to continued insulin drip and new order for Bicarb drip. Renal impairment continues however SCr improving and UOP increasing. * Will continue SQ Lantus and NPH this AM however as this will help with future transition to SQ basal/bolus regimen 09/26 * 56 y/o M admitted for acute respiratory failure due to Covid pneumonia. Pt with history of Type 2 diabetes managed on oral meds only at home. * Pt presented with a BSG of 259 last night. He received Dexamethasone IV at that time. BSGs continued to trend up to 511 mg/dl this AM. * Since patient's K was low at 3.0 last night, IV KCL riders ordered today AM. K improved to 3.7. * He received Lantus, NPH and Novolog insulin this AM but made no difference in the BSGs. * Mild DKA noted. Insulin drip started per DKA protocol. PLAN FOR INPATIENT GLYCEMIC CONTROL: * Hold outpatient oral diabetes medications (glimepiride, metformin) * Basal insulin * Lantus 40 units SQ BID * continue NPH 45 units SQ Q AM with IV dexamethasone 10mg * Bolus insulin * NovoLog SQ ACHS and at 0000 + 0400 tonight * Goal range: 110-140 mg/dL * Correction factor: 10 mg/dL/unit (CF 15mcg/L/unit overnight and only correct if BSG > 180) * Carb ratio 1 unit per 3 grams CHOs consumed PLAN FOR DISCHARGE: * to be determined
[2021-09-30] MEDS: INSULIN ASPART 100 UNITS/ML 3 ML PEN SC SCH ×6 (00:16→21:00)
[2021-09-30] MEDS: HEPARIN SOD 5,000 UNIT/0.5 ML VIAL SQ SCH ×3 (04:59→20:49)
[2021-09-30 07:54] LABS: BUN Creatinine Ratio 35.8 (10-20); Calcium 8.2 mg/dl (8.5-10.1); Creatinine Clr Calc Pharmacy 99.6 ml/min; Est GFR (African American) 75.2 ml/min; Est GFR (Non-African American) 64.9 ml/min; Magnesium 2.1 mg/dl (1.8-2.4); Potassium 3.4 mmol/L (3.5-5.1)
[2021-09-30] MEDS ORDERED: FUROSEMIDE INJ 20 MG/2 ML VIAL IV ONE (07:56)
--- NOTE | 2021-09-30 08:53 | XRay Report ---
XR chest 1V portable HISTORY: 56 years-old Male hypoxia, COVID acute hypoxia. COVID Positive. COMPARISON: Chest radiograph 09/25/2021 TECHNIQUE: Portable AP view of the chest FINDINGS: Cardiac silhouette is enlarged. No pneumothorax, or large pleural effusion. Extensive bilateral airsp jelani opacities are redemonstrated which are generally well dispersed throughout all lung maldonado bilate rally. Mild progressive opacification of the right midlung. With mildly improved aeration of the left lung. Chronic fracture deformity of the right clavicle. IMPRESSION: Persistent extensive bilateral airspace opacities compatible with viral pneumonia. ACT 112: Negative or not required by law. The above report was generated using voice recognition software. It may contain grammatical, syntax o r spelling errors. Electronically signed by: Ronni Brown M.D. 09/30/2021 8:52 AM
[2021-09-30] MEDS: POTASSIUM CHLORIDE / WTR 10 MEQ/100 ML PLCT IV SCH ×2 (09:02→10:08)
[2021-09-30] MEDS: BARICITINIB 2 MG TAB PO SCH (09:04)
[2021-09-30] MEDS: METOPROLOL SUCC 50MG EXT REL TAB PO SCH (09:05)
[2021-09-30] MEDS: dexAMETHasone 10 MG in SYRINGE 0 ML IV SCH (09:05)
[2021-09-30] MEDS: POTASSIUM CHLORIDE CRTAB 20 MEQ TABCR PO SCH ×2 (09:05→20:39)
[2021-09-30] MEDS: ATORVASTATIN 20 MG TAB PO SCH (09:05)
[2021-09-30] MEDS: FAMOTIDINE 20 MG in SYRINGE 3 ML IV SCH ×2 (09:05→20:49)
[2021-09-30] MEDS: INSULIN GLARGINE SOLOSTAR 100 UNITS/ML 3 ML PEN SC SCH ×2 (09:15→20:59)
[2021-09-30] MEDS: INSULIN HUMAN NPH SC SCH (09:16)
--- NOTE | 2021-09-30 11:00 | Pharmacy Report ---
Pharmacy Glycemic Short Note 2 - Date of Service September 30, 2021 - Glycemic Short BSG Results (Last 24 hours): 09/29/21 09/29/21 09/29/21 11:45 16:50 20:43 Glucose POC Glucose 225 H 202 H 267 H 09/30/21 09/30/21 09/30/21 00:09 04:16 06:50 Glucose 91 POC Glucose 203 H 118 H 09/30/21 07:44 Glucose POC Glucose 83 OUTPATIENT ANTIDIABETIC REGIMEN: * Glimepiride 4 mg daily * Metformin 1000 mg PO BID ASSESSMENT: 09/30 * Pt has been receiving 167-185 units of SQ insulin per day with poor control. * Pt ordered Lantus 40 units SQ BID + NPH 45 units SQ daily (for steroid induced hyperglycemia) and NovoLog per scale CF/CR (07/25 respectively). * BSGs trending downwards now that insulin is at steady state. PO intake low. Will empirically decrease insulin regimen to prevent LOW tomorrow. 09/29: * Patient transitioned off the insulin drip yesterday. * 125 units basal insulin administered yesterday - Fasting BSG 180s this AM - will continue a similar basal regimen today as fasting BSG may improve as we approach steady state on this dosage. More basal insulin will be provided as NPH given post-prandial hyperglycemia pattern. * Novolog CR/CF will continue as ordered - will monitor post-prandial trend. Thus far today BSG did not climb excessively following breakfast / * Insulin drip continues this AM at a stable rate of 3 units/hr with BSGs well controlled in the 130s * Chemistry this AM shows AG acidosis has resolved. Will increase basal insulin dose and transition off the insulin drip this afternoon. * Patient easily requires ~150 units/day of insulin with current stressors based upon drip rates in addition to SQ given over last 24 hrs * Dex 10 mg IV Q AM continues and he appears to be tolerating PO at times /6 * Insulin drip discontinued overnight as AG acidosis had resolved. BSGs did trend back up into the upper 200's this AM and AG acidosis has returned despite receiving 50 units Lantus last evening. * AG 16 and Bicarb 17 on last chemistry. Insulin drip resumed at this time. Orders obtained for K+ repletion due to continued insulin drip and new order for Bicarb drip. Renal impairment continues however SCr improving and UOP increasing. * Will continue SQ Lantus and NPH this AM however as this will help with future transition to SQ basal/bolus regimen 09/26 * 56 y/o M admitted for acute respiratory failure due to Covid pneumonia. Pt with history of Type 2 diabetes managed on oral meds only at home. * Pt presented with a BSG of 259 last night. He received Dexamethasone IV at that time. BSGs continued to trend up to 511 mg/dl this AM. * Since patient's K was low at 3.0 last night, IV KCL riders ordered today AM. K improved to 3.7. * He received Lantus, NPH and Novolog insulin this AM but made no difference in the BSGs. * Mild DKA noted. Insulin drip started per DKA protocol. PLAN FOR INPATIENT GLYCEMIC CONTROL: * Hold outpatient oral diabetes medications (glimepiride, metformin) * Basal insulin * Lantus 40 units SQ AM; PM dose per scale 0-40 units based on BSG see MAR for details * continue NPH 45 units SQ Q AM with IV dexamethasone 10mg * Bolus insulin * NovoLog SQ ACHS and at 0000 + 0400 tonight * Goal range: 110-140 mg/dL * Correction factor: 10 mg/dL/unit (CF 15mcg/L/unit overnight and only correct if BSG > 180) * Carb ratio 1 unit per 3 grams CHOs consumed PLAN FOR DISCHARGE: * to be determined
[2021-09-30] MEDS: AZITHROMYCIN 250 MG in DEXTROSE 5% 250 ML IV SCH (11:16)
--- NOTE | 2021-09-30 11:24 | Hospitalist Progress Note ---
Date of Service September 30, 2021 Assessment & Plan (1) COVID-19: Plan: 56yo male with history of DM, HTN, HLP and Obesity (BMI of 46) presenting with acute hypoxic respiratory failure secondary to Covid-19 PNA. Patient is not vaccinated against Covid-19. He has been ill approximately 1 week. improving, down to 35L and 70% today, sitting up in chair continue BIPAP HS, tolerating well encouraged him to lay on his side prognosis is improving dexamethasone 6mg IV daily, day 6 Remdesivir IV completed 5 days renal function better, started baricitinib, day 4, increased dose to 4mg today Zithromax daily completed 5 days inflammatory markers down, Cr improved, glucose improved (2) Respiratory failure: Plan: rotating between high flow and BIPAP, very comfortable on BIPAP HS down to 35L and 70%, sitting up in chair great response to Lasix today, continue each morning (3) LAURENT (acute kidney injury): Plan: Elevation of BUN to 76 from 23 and Cr of 3.63 from prior value of 1.12. Suspect dehydration contributing as well as underlying illness, Covid with hypoxia. He was administered 2L NS in the ER. hold lisinopril/HCTZ which likely compounded the issue Cr improved to 1.2, making urine, placed cote, adequate UO, actually negative balance K is 3.4, provide replacement, HCO2 is normal Lasix 20mg IV this morning, great response (4) Type 2 diabetes mellitus: Plan: profound hyperglycemia, glucose was 500 on 09/27 mild DKA, elevated beta hydroxy butyrate treated with insulin drip, gap closed, sugars better transitioned to basal/bolus insulin, monitor closely HCO3 is normal today (5) Metabolic acidosis: Plan: due to DKA, renal failure placed on sodium bicarb 75 plus 1/2 NSS at 80cc/hr, now stopped HCO3 is now normal (6) Hypertriglyceridemia: Plan: Chronic -Continue Atorvastatin (7) Hypertension: Plan: Chronic -Continue Metoprolol 50mg po daily -Hold Lisinopril and HCTZ in setting of LAURENT use Lasix starting today Plan: F/E/N - encourage PO intake today, place on high flow so he can eat Ppx - Lovenox Pepcid BID Code - Full per discussion with patient Dispo - Admit to PCU Admission and Anticipated Discharge Date Admission Date: September 25, 2021 Subjective patient doing really well today, down to 35L and 70% FiO2 he sat up in a chair to eat lunch, lasted a few hours, did not desaturate too dramatically with activity sleeping with BIPAP, very compliant eating better, Cr is down to 1.2, good response to Lasix IV, continue daily K is stable I called his and provided an update Review of Systems Review of Systems: All systems reviewed & are unremarkable except as noted in Subjective Respiratory: + cough, + dyspnea and + dyspnea on exertion Physical Exam Physical Exam: General: well developed, obese male, ill appearing, on Vapotherm Neck: thick short neck, trachea midline, normal thyroid Lungs: clear to auscultation bilaterally, slightly tachypneic with Vapotherm, slight use of abdominal muscles, talking in full sentences Heart: regular S1 and S2, no murmur, peripheral pulses normal, capillary refill normal, no edema Abdomen: soft, NT, ND, + BS, no hepatomegaly, normal to percussion Extremities: normal in appearance, no cyanosis, no petechiae, strength is 5/5 bilaterally Neuro: awake, cooperative, moves all extremities, no focal motor deficits, CN II-XII intact, sensation in extremities intact, normal speech Skin: warm, dry, no rash, normal turgor Psych: Awake, alert oriented x 3, anxious Results & Data Results & Data ([facility] [place]) Vital Signs (Past 12 Hours) Vital Signs Temp Pulse Pulse Resp BP Pulse Ox Pulse Ox 09/30/21 08:30 86 20 91 09/30/21 08:10 36.8 C 76 24 160/91 H 96 09/30/21 07:53 93 09/30/21 06:30 60 09/30/21 04:13 36.5 C 67 24 116/72 95 09/30/21 02:03 75 30 H 93 09/30/21 01:00 60 92 09/30/21 00:08 36.7 C 77 18 133/58 L 93 Laboratory Results Laboratory Results - last 24 hr 09/29/21 09/29/21 09/29/21 11:45 16:50 20:43 VBG pH Sodium Potassium Chloride Carbon Dioxide Anion Gap BUN Creatinine Est Cr Clr Drug Dosing Est GFR ( Amer) Est GFR (Non-Af Amer) BUN/Creatinine Ratio Glucose POC Glucose 225 H 202 H 267 H Calcium Phosphorus Magnesium AST ALT 09/30/21 09/30/21 09/30/21 00:09 04:16 06:50 VBG pH Sodium 142 Potassium 3.4 L Chloride 110 H Carbon Dioxide 25 Anion Gap 7.0 BUN 45 H Creatinine 1.25 Est Cr Clr Drug Dosing 99.6 Est GFR ( Amer) 75.2 Est GFR (Non-Af Amer) 64.9 BUN/Creatinine Ratio 35.8 H Glucose 91 POC Glucose 203 H 118 H Calcium 8.2 L Phosphorus 3.0 Magnesium 2.1 AST 70 H ALT 79 H 09/30/21 09/30/21 06:55 07:44 VBG pH 7.46 H Sodium Potassium Chloride Carbon Dioxide Anion Gap BUN Creatinine Est Cr Clr Drug Dosing Est GFR ( Amer) Est GFR (Non-Af Amer) BUN/Creatinine Ratio Glucose POC Glucose 83 Calcium Phosphorus Magnesium AST ALT Medications Administered Current Inpatient Medications Acetaminophen (Acetaminophen 325 Mg Tab) 650 mg PO Q4H PRN PRN Reason: Pain or Fever Stop: 10/26/21 01:36 Albuterol (Albuterol Hfa 8 Gm Inhaler) 2 puffs INH Q2R PRN PRN Reason: Shortness Of Breath Stop: 10/26/21 05:01 Atorvastatin Calcium (Atorvastatin 20 Mg Tab) 20 mg PO DAILY [facility] Stop: 10/26/21 08:59 Last Admin: 09/30/21 09:05 Dose: 20 mg Documented by: Baricitinib (Baricitinib 2 Mg Tab) 2 mg PO DAILY [facility]; Protocol Stop: 10/11/21 08:59 Last Admin: 09/30/21 09:04 Dose: 2 mg Documented by: Dextrose (Dextrose 50% 50 Ml Syringe) 25 - 50 ml IV UD PRN; Protocol PRN Reason: Hypoglycemia Protocol Stop: 10/26/21 01:36 Last Admin: 09/27/21 23:45 Dose: 25 ml Documented by: Glucagon (Glucagon For Inj 1 Mg Vial) 1 mg SQ UD PRN; Protocol PRN Reason: Hypoglycemia Protocol Stop: 10/26/21 01:36 Glucose (Glucose 10 Tabs/Tube) 4 - 8 tabs PO UD PRN; Protocol PRN Reason: Hypoglycemia Protocol Stop: 10/26/21 01:36 Glucose (Glucose 40% Gel 15 Gm Tube) 15 - 30 gm PO UD PRN; Protocol PRN Reason: Hypoglycemia Protocol Stop: 10/26/21 01:36 Heparin Sodium (Porcine) (Heparin Sod 5,000 Unit/0.5 Ml Vial) 5,000 units SQ Q8 [facility] Stop: 10/26/21 05:59 Last Admin: 09/30/21 04:59 Dose: 5,000 units Documented by: Dexamethasone 10 mg/ Syringe 2.5 mls @ 1 mls/min IV Q24H [facility] Stop: 10/26/21 08:59 Last Admin: 09/30/21 09:05 Dose: 1 mls/min Documented by: Remdesivir 100 mg/ Sodium (Chloride) 250 mls @ 250 mls/hr IV Q24H [facility]; Protocol Stop: 09/30/21 12:59 Last Infusion: 09/29/21 13:52 Dose: Infused Documented by: Azithromycin 250 mg/ Dextrose 252.5 mls @ 125 mls/hr IV Q24H [facility]; Protocol Stop: 10/04/21 08:59 Last Admin: 09/30/21 11:16 Dose: 125 mls/hr Documented by: Famotidine 20 mg/ Syringe 5 mls @ 2.5 mls/min IV BID [facility] Stop: 10/27/21 10:59 Last Admin: 09/30/21 09:05 Dose: 2.5 mls/min Documented by: Insulin Aspart (Insulin Aspart 100 Units/Ml 3 Ml Pen) 0 units SC ACHS [facility] Stop: 10/26/21 12:59 Last Admin: 09/30/21 09:01 Dose: Not Given Documented by: Insulin Aspart (Insulin Aspart 100 Units/Ml 3 Ml Pen) 0 units SC TODAY@0000,0400 [facility] Stop: 10/29/21 00:00 Last Admin: 09/30/21 04:35 Dose: Not Given Documented by: Insulin Glargine (Insulin Glargine Solostar 100 Units/Ml 3 Ml Pen) 40 units SC QAM [facility] Stop: 10/31/21 08:59 Insulin Glargine (Insulin Glargine Solostar 100 Units/Ml 3 Ml Pen) 0 units SC [facility]; Protocol Stop: 10/30/21 20:59 Insulin Human NPH (Insulin Human Nph) [facility] [place] Stop: 10/29/21 08:59 Last Admin: 09/30/21 09:16 Dose: 45 units Documented by: Metoprolol Succinate (Metoprolol Succ 50mg Ext Rel Tab) 50 mg PO DAILY [facility] Stop: 10/26/21 08:59 Last Admin: 09/30/21 09:05 Dose: 50 mg Documented by: Miscellaneous (Carbohydrates For Hypoglycemia ) 15 - 30 gm PO UD PRN PRN Reason: Hypoglycemia Protocol Stop: 10/26/21 01:36 Miscellaneous Information (Pharmacy Glycemic Mgmt Consult) 1 ea N/A UD PRN PRN Reason: Consult Stop: 10/26/21 07:52 Ondansetron HCl (Ondansetron Inj 2 Mg/Ml 2 Ml Vial) 4 mg IV Q6H PRN PRN Reason: Nausea Stop: 10/26/21 01:36 Potassium Chloride (Potassium Chloride Crtab 20 Meq Tabcr) 20 meq PO BID [facility] Stop: 10/30/21 08:59 Last Admin: 09/30/21 09:05 Dose: 20 meq Documented by: Sodium Chloride (Sodium Chloride 0.9% 10ml Flush) 30 ml IV DAILY@1300 [facility] Stop: 09/30/21 13:01 Last Admin: 09/29/21 12:53 Dose: 30 ml Documented by: PG Care Time/CCT Total # of Minutes Spent Total Time Spent: 32 Total Time Spent with Patient: Total time spent is greater than 50% in coordination of care (as documented) at patient's floor/unit and/or counseling patient: Coding Level of Care Code 94509 Subseq Hosp Care Lvl 3 (25 - SIGNIFICANT, SEPARATELY IDENTIFIABLE ) Diagnoses COVID-19 U07.1 Respiratory failure J96.01 Chronicity: acute Respiratory failure complication: hypoxia LAURENT (acute kidney injury) N17.9 Type 2 diabetes mellitus E11.9 Metabolic acidosis E87.2 Hypertriglyceridemia E78.1 Hypertension I10 (1) Respiratory failure Chronicity: acute Respiratory failure complication: hypoxia Qualified Code(s): J96.01 - Acute respiratory failure with hypoxia
[2021-09-30] MEDS: SODIUM CHLORIDE 0.9% 10ML FLUSH IV SCH (13:08)
[2021-09-30] MEDS: REMDESIVIR 100 MG in SODIUM CHLORIDE 0.9% 230 ML IV SCH (13:09)
[2021-10-01] MEDS: INSULIN ASPART 100 UNITS/ML 3 ML PEN SC SCH ×6 (00:05→21:23)
[2021-10-01] MEDS: HEPARIN SOD 5,000 UNIT/0.5 ML VIAL SQ SCH ×3 (06:09→21:04)
[2021-10-01 06:57] LABS: Est GFR (African American) 73.7 ml/min; Est GFR (Non-African American) 63.6 ml/min
[2021-10-01 08:16] LABS: BUN Creatinine Ratio 29.5 (10-20); Creatinine Clr Calc Pharmacy 102.8 ml/min; Est GFR (African American) 78.2 ml/min; Est GFR (Non-African American) 67.5 ml/min; Potassium 3.8 mmol/L (3.5-5.1)
[2021-10-01] MEDS: FAMOTIDINE 20 MG in SYRINGE 3 ML IV SCH ×2 (08:38→21:03)
[2021-10-01] MEDS: 4mg Daily x 14 days (eGFR >60 mL/min/1.73m2) PO SCH (08:38)
[2021-10-01] MEDS: AZITHROMYCIN 250 MG in DEXTROSE 5% 250 ML IV SCH (08:38)
[2021-10-01] MEDS: dexAMETHasone 10 MG in SYRINGE 0 ML IV SCH (08:38)
[2021-10-01] MEDS: ATORVASTATIN 20 MG TAB PO SCH (08:40)
[2021-10-01] MEDS: POTASSIUM CHLORIDE CRTAB 20 MEQ TABCR PO SCH ×2 (08:40→21:04)
[2021-10-01] MEDS: METOPROLOL SUCC 50MG EXT REL TAB PO SCH (08:40)
[2021-10-01] MEDS ORDERED: INSULIN HUMAN NPH SC SCH (09:00)
[2021-10-01] MEDS ORDERED: INSULIN GLARGINE SOLOSTAR 100 UNITS/ML 3 ML PEN SC SCH (09:00)
--- NOTE | 2021-10-01 09:35 | Hospitalist Progress Note ---
Date of Service October 01, 2021 Assessment & Plan (1) COVID-19: Plan: 56yo male with history of DM, HTN, HLP and Obesity (BMI of 46) presenting with acute hypoxic respiratory failure secondary to Covid-19 PNA. Patient is not vaccinated against Covid-19. He has been ill approximately 1 week. improving, he is at 35L and 90% but feeling well, plans to get OOB to chair, more motivated continue BIPAP HS, tolerating well encouraged him to lay on his side prognosis is improving dexamethasone 6mg IV daily, day 7 Remdesivir IV completed 5 days renal function better, started baricitinib, day 5, increased dose to 4mg on 10/10 when renal function improved Zithromax daily completed 5 days inflammatory markers down, Cr improved, glucose improved (2) Respiratory failure: Plan: rotating between high flow and BIPAP, very comfortable on BIPAP HS currently on 35L and 90%, but he was sleeping after breakfast give Lasix 20mg IV qAM, good response yesterday suspect we can get oxygen down further today (3) LAURENT (acute kidney injury): Plan: Elevation of BUN to 76 from 23 and Cr of 3.63 from prior value of 1.12. Suspect dehydration contributing as well as underlying illness, Covid with hypoxia. He was administered 2L NS in the ER. hold lisinopril/HCTZ which likely compounded the issue Cr improved to 1.2, making urine, placed cote, adequate UO, actually negative balance K is 3.8, provide replacement, HCO3 is normal Lasix 20mg IV qAM to promote negative fluid balance LAURENT is resolved at this point (4) Type 2 diabetes mellitus: Plan: profound hyperglycemia, glucose was 500 on 09/27 mild DKA, elevated beta hydroxy butyrate treated with insulin drip, gap closed, sugars better transitioned to basal/bolus insulin had hypoglycemia this morning, resolved quickly with protocol pharmacy is making adjustments HCO3 is normal (5) Metabolic acidosis: Plan: due to DKA, renal failure placed on sodium bicarb 75 plus 1/2 NSS at 80cc/hr, now stopped HCO3 is now normal, acidosis resolved (6) Hypertriglyceridemia: Plan: Chronic -Continue Atorvastatin (7) Hypertension: Plan: Chronic -Continue Metoprolol 50mg po daily -Hold Lisinopril and HCTZ in setting of LAURENT use Lasix daily Plan: F/E/N - encourage PO intake today, place on high flow so he can eat Ppx - Lovenox Pepcid BID Code - Full per discussion with patient Dispo - Admit to PCU Admission and Anticipated Discharge Date Admission Date: September 25, 2021 Subjective patient doing well, he is on 35L and 90% but he was sleeping after breakfast he is actually asking to get up to a chair which is an improvement from yesterday he is eating well had some low sugars last night, will adjust insulin, pharmacy is helping Cr and K are stable, give Lasix 20mg IV again today, good response yesterday he has a dry cough, no chest pain, no fever Review of Systems Review of Systems: All systems reviewed & are unremarkable except as noted in Subjective Respiratory: + cough, + dyspnea and + dyspnea on exertion Physical Exam Physical Exam: General: well developed, obese male, ill appearing, on Vapo therm Neck: thick short neck, trachea midline, normal thyroid Lungs: clear to auscultation bilaterally, slightly tachypneic with Vapotherm, slight use of abdominal muscles, talking in full sentences Heart: regular S1 and S2, no murmur, peripheral pulses normal, capillary refill normal, no edema Abdomen: soft, NT, ND, + BS, no hepatomegaly, normal to percussion Extremities: normal in appearance, no cyanosis, no petechiae, strength is 5/5 bilaterally Neuro: awake, cooperative, moves all extremities, no focal motor deficits, CN II-XII intact, sensation in extremities intact, normal speech Skin: warm, dry, no rash, normal turgor Psych: Awake, alert oriented x 3, anxious Results & Data Results & Data ([facility]) Vital Signs (Past 12 Hours) Vital Signs Temp Pulse Pulse Resp BP Pulse Ox Pulse Ox 10/01/21 07:16 36.5 C 86 22 143/65 H 92 10/01/21 07:13 70 24 91 10/01/21 07:12 74 10/01/21 07:00 92 10/01/21 03:30 67 20 93 10/01/21 02:56 36.6 C 69 23 148/81 H 91 09/30/21 23:55 36.4 C L 71 24 153/90 H 90 09/30/21 22:42 78 22 90 Laboratory Results Laboratory Results - last 24 hr 12/07/1309/30/21 09/30/21 12:29 17:10 20:20 Sodium Potassium Chloride Carbon Dioxide Anion Gap BUN Creatinine Est Cr Clr Drug Dosing Est GFR ( Amer) Est GFR (Non-Af Amer) BUN/Creatinine Ratio Glucose POC Glucose 165 H 254 H 258 H Calcium AST ALT 10/01/21 10/01/21 10/01/21 00:03 04:08 05:51 Sodium Potassium Chloride Carbon Dioxide Anion Gap BUN Creatinine 1.27 Est Cr Clr Drug Dosing 98.0 Est GFR ( Amer) 73.7 Est GFR (Non-Af Amer) 63.6 BUN/Creatinine Ratio Glucose POC Glucose 159 H 90 Calcium AST 60 H ALT 80 H 10/01/21 10/01/21 10/01/21 05:51 07:46 07:47 Sodium 143 Potassium 3.8 Chloride 109 H Carbon Dioxide 28 Anion Gap 6.0 BUN 36 H Creatinine 1.21 Est Cr Clr Drug Dosing 102.8 Est GFR ( Amer) 78.2 Est GFR (Non-Af Amer) 67.5 BUN/Creatinine Ratio 29.5 H Glucose 73 POC Glucose 50 L* 58 L* Calcium 8.0 L AST ALT 10/01/21 08:25 Sodium Potassium Chloride Carbon Dioxide Anion Gap BUN Creatinine Est Cr Clr Drug Dosing Est GFR ( Amer) Est GFR (Non-Af Amer) BUN/Creatinine Ratio Glucose POC Glucose 90 Calcium AST ALT Medications Administered Current Inpatient Medications Acetaminophen (Acetaminophen 325 Mg Tab) 650 mg PO Q4H PRN PRN Reason: Pain or Fever Stop: 10/26/21 01:36 Albuterol (Albuterol Hfa 8 Gm Inhaler) 2 puffs INH Q2R PRN PRN Reason: Shortness Of Breath Stop: 10/26/21 05:01 Atorvastatin Calcium (Atorvastatin 20 Mg Tab) 20 mg PO DAILY [facility] Stop: 10/26/21 08:59 Last Admin: 10/01/21 08:40 Dose: 20 mg Documented by: Baricitinib (4mg Daily X 14 Days (Egfr >60 Ml/Min/1.73m2)) 4 mg PO DAILY [facility]; Protocol Stop: 10/11/21 08:59 Last Admin: 10/01/21 08:38 Dose: 4 mg Documented by: Dextrose (Dextrose 50% 50 Ml Syringe) 25 - 50 ml IV UD PRN; Protocol PRN Reason: Hypoglycemia Protocol Stop: 10/26/21 01:36 Last Admin: 09/27/21 23:45 Dose: 25 ml Documented by: Furosemide (Furosemide Inj 20 Mg/2 Ml Vial) 20 mg IV QAM [facility] Stop: 10/31/21 09:44 Glucagon (Glucagon For Inj 1 Mg Vial) 1 mg SQ UD PRN; Protocol PRN Reason: Hypoglycemia Protocol Stop: 10/26/21 01:36 Glucose (Glucose 10 Tabs/Tube) 4 - 8 tabs PO UD PRN; Protocol PRN Reason: Hypoglycemia Protocol Stop: 10/26/21 01:36 Glucose (Glucose 40% Gel 15 Gm Tube) 15 - 30 gm PO UD PRN; Protocol PRN Reason: Hypoglycemia Protocol Stop: 10/26/21 01:36 Heparin Sodium (Porcine) (Heparin Sod 5,000 Unit/0.5 Ml Vial) 5,000 units SQ Q8 [facility] Stop: 10/26/21 05:59 Last Admin: 10/01/21 06:09 Dose: 5,000 units Documented by: Dexamethasone 10 mg/ Syringe 2.5 mls @ 1 mls/min IV Q24H [facility] Stop: 10/26/21 08:59 Last Admin: 10/01/21 08:38 Dose: 1 mls/min Documented by: Azithromycin 250 mg/ Dextrose 252.5 mls @ 125 mls/hr IV Q24H [facility]; Protocol Stop: 10/04/21 08:59 Last Admin: 10/01/21 08:38 Dose: 125 mls/hr Documented by: Famotidine 20 mg/ Syringe 5 mls @ 2.5 mls/min IV BID [facility] Stop: 10/27/21 10:59 Last Admin: 10/01/21 08:38 Dose: 2.5 mls/min Documented by: Insulin Aspart (Insulin Aspart 100 Units/Ml 3 Ml Pen) 0 units SC ACHS [facility] Stop: 10/01/21 10:01 Last Admin: 10/01/21 08:32 Dose: Not Given Documented by: Insulin Aspart (Insulin Aspart 100 Units/Ml 3 Ml Pen) 0 units SC TODAY@0000,0400 [facility] Stop: 10/29/21 00:00 Last Admin: 10/01/21 04:18 Dose: Not Given Documented by: Insulin Aspart (Insulin Aspart 100 Units/Ml 3 Ml Pen) 0 units SC ACHS [facility] Stop: 10/31/21 11:29 Insulin Glargine (Insulin Glargine Solostar 100 Units/Ml 3 Ml Pen) 0 units SC HS [facility]; Protocol Stop: 10/30/21 20:59 Last Admin: 09/30/21 20:59 Dose: 30 units Documented by: Insulin Human NPH (Insulin Human Nph) 55 units SC QAM [facility] Stop: 10/31/21 08:59 Last Admin: 10/01/21 09:14 Dose: 55 units Documented by: Metoprolol Succinate (Metoprolol Succ 50mg Ext Rel Tab) 50 mg PO DAILY [facility] Stop: 10/26/21 08:59 Last Admin: 10/01/21 08:40 Dose: 50 mg Documented by: Miscellaneous (Carbohydrates For Hypoglycemia ) 15 - 30 gm PO UD PRN PRN Reason: Hypoglycemia Protocol Stop: 10/26/21 01:36 Miscellaneous Information (Pharmacy Glycemic Mgmt Consult) 1 ea N/A UD PRN PRN Reason: Consult Stop: 10/26/21 07:52 Ondansetron HCl (Ondansetron Inj 2 Mg/Ml 2 Ml Vial) 4 mg IV Q6H PRN PRN Reason: Nausea Stop: 10/26/21 01:36 Potassium Chloride (Potassium Chloride Crtab 20 Meq Tabcr) 20 meq PO BID [facility] Stop: 10/30/21 08:59 Last Admin: 10/01/21 08:40 Dose: 20 meq Documented by: PG Care Time/CCT Total # of Minutes Spent Total Time Spent with Patient: Total time spent is greater than 50% in coordination of care (as documented) at patient's floor/unit and/or counseling patient: Coding Level of Care Code 46904 Subseq Hosp Care Lvl 3 Diagnoses COVID-19 U07.1 Respiratory failure J96.01 Chronicity: acute Respiratory failure complication: hypoxia LAURENT (acute kidney injury) N17.9 Type 2 diabetes mellitus E11.9 Metabolic acidosis E87.2 Hypertriglyceridemia E78.1 Hypertension I10 (1) Respiratory failure Chronicity: acute Respiratory failure complication: hypoxia Qualified Code(s): J96.01 - Acute respiratory failure with hypoxia
[2021-10-01] MEDS: FUROSEMIDE INJ 20 MG/2 ML VIAL IV SCH (11:56)
--- NOTE | 2021-10-01 12:49 | Pharmacy Report ---
Pharmacy Glycemic Short Note 2 - Date of Service October 01, 2021 - Glycemic Short BSG Results (Last 24 hours): 09/30/21 09/30/21 10/01/21 17:10 20:20 00:03 Glucose POC Glucose 254 H 258 H 159 H 10/01/21 10/01/21 10/01/21 04:08 05:51 07:46 Glucose 73 POC Glucose 90 50 L* 10/01/21 10/01/21 10/01/21 07:47 08:25 11:48 Glucose POC Glucose 58 L* 90 123 H OUTPATIENT ANTIDIABETIC REGIMEN: * Glimepiride 4 mg daily * Metformin 1000 mg PO BID ASSESSMENT: 10/01 * Stressors stable * Severe AM fasting low today. Etiology likely combined NPH and Lantus. NPH best for steroid coverage while ordered a diet therefore will significantly reduce Lantus dose and only provide today if HS BSG >200 mg/dL. Basal insulin will likely need to be modestly increased in the near future, after Lantus wash-out * Post-prandial BSG's significantly elevated yesterday, although PO intake was poor. Will tighten CHO ratio slightly. 09/30 * Pt has been receiving 167-185 units of SQ insulin per day with poor control. * Pt ordered Lantus 40 units SQ BID + NPH 45 units SQ daily (for steroid induced hyperglycemia) and NovoLog per scale CF/CR (07/25 respectively). * BSGs trending downwards now that insulin is at steady state. PO intake low. Will empirically decrease insulin regimen to prevent LOW tomorrow. 09/29: * Patient transitioned off the insulin drip yesterday. * 125 units basal insulin administered yesterday - Fasting BSG 180s this AM - will continue a similar basal regimen today as fasting BSG may improve as we approach steady state on this dosage. More basal insulin will be provided as NPH given post-prandial hyperglycemia pattern. * Novolog CR/CF will continue as ordered - will monitor post-prandial trend. Thus far today BSG did not climb excessively following breakfast 09/28 * Insulin drip continues this AM at a stable rate of 3 units/hr with BSGs well controlled in the 130s * Chemistry this AM shows AG acidosis has resolved. Will increase basal insulin dose and transition off the insulin drip this afternoon. * Patient easily requires ~150 units/day of insulin with current stressors based upon drip rates in addition to SQ given over last 24 hrs * Dex 10 mg IV Q AM continues and he appears to be tolerating PO at times 09/27 * Insulin drip discontinued overnight as AG acidosis had resolved. BSGs did trend back up into the upper 200's this AM and AG acidosis has returned despite receiving 50 units Lantus last evening. * AG 16 and Bicarb 17 on last chemistry. Insulin drip resumed at this time. Orders obtained for K+ repletion due to continued insulin drip and new order for Bicarb drip. Renal impairment continues however SCr improving and UOP increasing. * Will continue SQ Lantus and NPH this AM however as this will help with future transition to SQ basal/bolus regimen 09/26 * 56 y/o M admitted for acute respiratory failure due to Covid pneumonia. Pt with history of Type 2 diabetes managed on oral meds only at home. * Pt presented with a BSG of 259 last night. He received Dexamethasone IV at that time. BSGs continued to trend up to 511 mg/dl this AM. * Since patient's K was low at 3.0 last night, IV KCL riders ordered today AM. K improved to 3.7. * He received Lantus, NPH and Novolog insulin this AM but made no difference in the BSGs. * Mild DKA noted. Insulin drip started per DKA protocol. PLAN FOR INPATIENT GLYCEMIC CONTROL: * Hold outpatient oral diabetes medications (glimepiride, metformin) * Basal insulin * Lantus 40 units SQ AM; PM dose per scale 0-40 units based on BSG see MAR for details * continue NPH 45 units SQ Q AM with IV dexamethasone 10mg * Bolus insulin * NovoLog SQ ACHS and at 0000 + 0400 tonight * Goal range: 110-140 mg/dL * Correction factor: 10 mg/dL/unit (CF 15mcg/L/unit overnight and only correct if BSG > 180) * Carb ratio 1 unit per 3 grams CHOs consumed PLAN FOR DISCHARGE: * to be determined
[2021-10-01] MEDS: INSULIN GLARGINE SOLOSTAR 100 UNITS/ML 3 ML PEN SC SCH (21:22)
[2021-10-02] MEDS: INSULIN ASPART 100 UNITS/ML 3 ML PEN SC SCH ×5 (00:23→12:58)
[2021-10-02] MEDS: HEPARIN SOD 5,000 UNIT/0.5 ML VIAL SQ SCH ×3 (05:02→21:17)
[2021-10-02 08:09] LABS: BUN Creatinine Ratio 31.2 (10-20); C Reactive Protein 2.87 mg/dl (0-0.29); Calcium 8.1 mg/dl (8.5-10.1); Creatinine Clr Calc Pharmacy 115.5 ml/min; Est GFR (African American) 89.7 ml/min; Est GFR (Non-African American) 77.4 ml/min; Potassium 3.5 mmol/L (3.5-5.1)
[2021-10-02] MEDS: 4mg Daily x 14 days (eGFR >60 mL/min/1.73m2) PO SCH (08:46)
[2021-10-02] MEDS: FAMOTIDINE 20 MG in SYRINGE 3 ML IV SCH ×2 (08:46→21:16)
[2021-10-02] MEDS: dexAMETHasone 10 MG in SYRINGE 0 ML IV SCH (08:46)
[2021-10-02] MEDS: POTASSIUM CHLORIDE CRTAB 20 MEQ TABCR PO SCH ×2 (08:47→21:17)
[2021-10-02] MEDS: ATORVASTATIN 20 MG TAB PO SCH (08:47)
[2021-10-02] MEDS: METOPROLOL SUCC 50MG EXT REL TAB PO SCH (08:47)
[2021-10-02] MEDS: FUROSEMIDE INJ 20 MG/2 ML VIAL IV SCH (08:47)
[2021-10-02] MEDS ORDERED: INSULIN HUMAN NPH SC SCH (09:00)
--- NOTE | 2021-10-02 09:23 | Hospitalist Progress Note ---
Date of Service October 02, 2021 Assessment & Plan (1) COVID-19: Plan: 56yo male with history of DM, HTN, HLP and Obesity (BMI of 46) presenting with acute hypoxic respiratory failure secondary to Covid-19 PNA. Patient is not vaccinated against Covid-19. He has been ill approximately 1 week prior to admission With Covid-19 pneumonia Chest x-ray with diffuse bilateral infiltrates improving, he is weaned down to 35L and 60% and feels better continue CPAP HS, tolerating well encouraged him to lay on his side prognosis is improving dexamethasone 6mg IV daily, day 8 Remdesivir IV completed 5 days renal function better, started baricitinib, day 6, increased dose to 4mg on 10/10 when renal function improved Zithromax daily completed 5 days Wean off O2 as able to inflammatory markers down, Cr improved, glucose improved Encourage incentive spirometry (2) Respiratory failure: Plan: As above give Lasix 20mg IV qAM, with good response (3) LAURENT (acute kidney injury): Plan: Elevation of BUN to 76 from 23 and Cr of 3.63 from prior value of 1.12. Suspect dehydration contributing as well as underlying illness, Covid with hypoxia. He was administered 2L NS in the ER. Continue to hold lisinopril/HCTZ which likely compounded the issue Cr improved to 1.0, making urine, placed cote, adequate UO, actually negative balance K is 3.5, provide replacement, HCO3 is normal Lasix 20mg IV qAM to promote negative fluid balance LAURENT is resolved at this point (4) Type 2 diabetes mellitus: Plan: profound hyperglycemia, glucose was 500 on 09/27 mild DKA, elevated beta hydroxy butyrate treated with insulin drip, gap closed, sugars better transitioned to basal/bolus insulin had hypoglycemia which is now resolved pharmacy is making adjustments HCO3 is normal (5) Metabolic acidosis: Plan: due to DKA, renal failure placed on sodium bicarb 75 plus 1/2 NSS at 80cc/hr, now stopped HCO3 is now normal, acidosis resolved (6) Hypertriglyceridemia: Plan: Chronic -Continue Atorvastatin (7) Hypertension: Plan: Chronic -Continue Metoprolol 50mg po daily -Continue to hold Lisinopril and HCTZ in setting of LAURENT and while giving Lasix use Lasix daily Plan: Ppx - Lovenox Pepcid BID Code - Full per discussion with patient Dispo -continued stay on PCU Admission and Anticipated Discharge Date Admission Date: September 25, 2021 Subjective Patient reports feeling a little bit better. Denies shortness of breath at rest but really is not been out of bed much.. He is eating somewhat. Telemetry with normal sinus rhythm rates in the 60s 80s, some PVCs. Review of Systems Review of Systems: All systems reviewed & are unremarkable except as noted in HPI & below Physical Exam Constitutional: WD/WN, vitals as above + morbidly obese Eyes: + anicteric sclerae Neck: trachea midline, no thyromegaly Respiratory: normal respiratory effort Auscultation: + crackles (Bilateral lower lung maldonado); no rhonchi and no wheezes Cardiovascular: RRR, no murmur, no edema Chest (Breasts): Chest: normal inspection of chest Gastrointestinal (Abdomen): normal bowel sounds, soft, nontender, no hepatosplenomegaly Musculoskeletal: Extremities: extremities normal to inspection; no cyanosis and no clubbing Skin: no rashes, warm and dry Neurologic: moves all extremities and awake; no focal motor deficits Psychiatric: A+Ox3, euthymic affect Genitourinary: Cote catheter in place draining clear yellow urine Results & Data Results & Data ([facility]) Vital Signs (Past 12 Hours) Vital Signs Temp Pulse Pulse Pulse Resp BP BP 10/02/21 08:03 36.5 C 78 22 147/83 H 10/02/21 07:00 10/02/21 04:54 36 C L 76 20 156/97 H 10/02/21 02:25 62 20 10/01/21 23:38 36.6 C 69 24 146/84 H 10/01/21 22:45 73 23 Pulse Ox Pulse Ox 10/02/21 08:03 92 10/02/21 07:00 89 L 10/02/21 04:54 90 10/02/21 02:25 90 10/01/21 23:38 89 L 10/01/21 22:45 89 L Laboratory Results 10/02/21 10/02/21 10/02/21 Range/Units 16:41 11:40 07:42 Sodium (136-145) mmol/L Potassium (3.5-5.1) mmol/L Chloride (98-107) mmol/L Carbon Dioxide (21-32) mmol/L Anion Gap (3-11) BUN (7-18) mg/dl Creatinine (0.6-1.4) mg/dl Est Cr Clr Drug Dosing ml/min Est GFR ( Amer) ml/min Est GFR (Non-Af Amer) ml/min BUN/Creatinine Ratio (10-20) Glucose (70-99) mg/dl POC Glucose 235 H 191 H 72 (70-99) mg/dl Calcium (8.5-10.1) mg/dl C-Reactive Protein (0-0.29) mg/dl 10/02/21 10/02/21 10/01/21 Range/Units 06:27 04:51 23:43 Sodium 142 (136-145) mmol/L Potassium 3.5 (3.5-5.1) mmol/L Chloride 110 H (98-107) mmol/L Carbon Dioxide 25 (21-32) mmol/L Anion Gap 7.0 (3-11) BUN 34 H (7-18) mg/dl Creatinine 1.08 (0.6-1.4) mg/dl Est Cr Clr Drug Dosing 115.5 ml/min Est GFR ( Amer) 89.7 ml/min Est GFR (Non-Af Amer) 77.4 ml/min BUN/Creatinine Ratio 31.2 H (10-20) Glucose 74 (70-99) mg/dl POC Glucose 79 248 H (70-99) mg/dl Calcium 8.1 L (8.5-10.1) mg/dl C-Reactive Protein 2.87 H (0-0.29) mg/dl 10/01/21 Range/Units 20:49 Sodium (136-145) mmol/L Potassium (3.5-5.1) mmol/L Chloride (98-107) mmol/L Carbon Dioxide (21-32) mmol/L Anion Gap (3-11) BUN (7-18) mg/dl Creatinine (0.6-1.4) mg/dl Est Cr Clr Drug Dosing ml/min Est GFR ( Amer) ml/min Est GFR (Non-Af Amer) ml/min BUN/Creatinine Ratio (10-20) Glucose (70-99) mg/dl POC Glucose 248 H (70-99) mg/dl Calcium (8.5-10.1) mg/dl C-Reactive Protein (0-0.29) mg/dl PG Care Time/CCT Total # of Minutes Spent Total Time Spent with Patient: Total time spent is greater than 50% in coordination of care (as documented) at patient's floor/unit and/or counseling patient: Coding Level of Care Code 26344 Subseq Hosp Care Lvl 3 Diagnoses COVID-19 U07.1 Respiratory failure J96.01 Chronicity: acute Respiratory failure complication: hypoxia LAURENT (acute kidney injury) N17.9 Type 2 diabetes mellitus E11.9 Metabolic acidosis E87.2 Hypertriglyceridemia E78.1 Hypertension I10 (1) Respiratory failure Chronicity: acute Respiratory failure complication: hypoxia Qualified Code(s): J96.01 - Acute respiratory failure with hypoxia
[2021-10-02] MEDS: INSULIN ASPART PER UNIT SC SCH ×3 (12:53→21:08)
--- NOTE | 2021-10-02 14:49 | Pharmacy Report ---
Pharmacy Glycemic Short Note 2 - Date of Service October 02, 2021 - Glycemic Short BSG Results (Last 24 hours): 10/01/21 10/01/21 10/01/21 17:31 20:49 23:43 Glucose POC Glucose 189 H 248 H 248 H 10/02/21 10/02/21 10/02/21 04:51 06:27 07:42 Glucose 74 POC Glucose 79 72 10/02/21 11:40 Glucose POC Glucose 191 H OUTPATIENT ANTIDIABETIC REGIMEN: * Glimepiride 4 mg daily * Metformin 1000 mg PO BID * HbA1c = 8.4% (08/21/21) ASSESSMENT: 10/02: * Mars received a total of 141 units of insulin yesterday (55 units NPH + 25 units Lantus + 61 units Novolog) * BSGs were variable: 15-362-326-248 mg/dL * Fasting BSG was 72 mg/dL this AM * Decreased Lantus further * Steroids continue to cause elevations in BSGs throughout the day * Increased NPH 10/01: * Stressors stable * Severe AM fasting low today. Etiology likely combined NPH and Lantus. NPH best for steroid coverage while ordered a diet therefore will significantly reduce Lantus dose and only provide today if HS BSG >200 mg/dL. Basal insulin will likely need to be modestly increased in the near future, after Lantus wash-out * Post-prandial BSG's significantly elevated yesterday, although PO intake was poor. Will tighten CHO ratio slightly. 09/30: * Pt has been receiving 167-185 units of SQ insulin per day with poor control. * Pt ordered Lantus 40 units SQ BID + NPH 45 units SQ daily (for steroid induced hyperglycemia) and NovoLog per scale CF/CR (07/25 respectively). * BSGs trending downwards now that insulin is at steady state. PO intake low. Will empirically decrease insulin regimen to prevent LOW tomorrow. PLAN FOR INPATIENT GLYCEMIC CONTROL: * Hold outpatient oral diabetes medications (glimepiride, metformin) * Basal insulin - increased NPH, decreased Lantus * Lantus 0-20 units SC HS * NPH 65 units SC daily with dexamethasone * Bolus insulin * NovoLog SQ ACHS and at 0000 + 0400 tonight * Goal range: 110-140 mg/dL * Correction factor: 10 mg/dL/unit * Carb ratio 1 unit per 3 grams CHOs consumed PLAN FOR DISCHARGE: * To be determined
[2021-10-02] MEDS ORDERED: INSULIN HUMAN REGULAR PER UNIT 5 UNITS in SYRINGE 4.95 ML IV SCH (21:00)
[2021-10-02] MEDS: INSULIN GLARGINE SOLOSTAR 100 UNITS/ML 3 ML PEN SC SCH (21:09)
[2021-10-03] MEDS ORDERED: INSULIN ASPART PER UNIT SC SCH
[2021-10-03] MEDS: HEPARIN SOD 5,000 UNIT/0.5 ML VIAL SQ SCH ×3 (05:55→21:13)
[2021-10-03 07:34] LABS: Creatinine Clr Calc Pharmacy 123.4 ml/min; Est GFR (African American) 97.3 ml/min; Est GFR (Non-African American) 83.9 ml/min
[2021-10-03] MEDS: POTASSIUM CHLORIDE CRTAB 20 MEQ TABCR PO SCH ×2 (08:59→21:12)
[2021-10-03] MEDS: METOPROLOL SUCC 50MG EXT REL TAB PO SCH (08:59)
[2021-10-03] MEDS: 4mg Daily x 14 days (eGFR >60 mL/min/1.73m2) PO SCH (08:59)
[2021-10-03] MEDS: ATORVASTATIN 20 MG TAB PO SCH (08:59)
[2021-10-03] MEDS: FUROSEMIDE INJ 20 MG/2 ML VIAL IV SCH ×2 (09:00→16:08)
[2021-10-03] MEDS: dexAMETHasone 10 MG in SYRINGE 0 ML IV SCH (09:00)
[2021-10-03] MEDS: FAMOTIDINE 20 MG TAB PO SCH ×2 (09:02→21:12)
[2021-10-03 09:15] LABS: BUN Creatinine Ratio 29.5 (10-20); Calcium 7.9 mg/dl (8.5-10.1); Creatinine Clr Calc Pharmacy 117.6 ml/min; Est GFR (African American) 91.8 ml/min; Est GFR (Non-African American) 79.2 ml/min; Potassium 4.1 mmol/L (3.5-5.1)
--- NOTE | 2021-10-03 09:36 | Hospitalist Progress Note ---
Date of Service October 03, 2021 Assessment & Plan (1) COVID-19: Plan: 56yo male with history of DM, HTN, HLP and Obesity (BMI of 46) presenting with acute hypoxic respiratory failure secondary to Covid-19 PNA. Patient is not vaccinated against Covid-19. He has been ill approximately 1 week prior to admission With Covid-19 pneumonia Chest x-ray with diffuse bilateral infiltrates improving slowly but still desats with minimal movement in bed -remains on HFNC but weaned down to 30L and 50% continue CPAP HS, tolerating well encouraged him to lay on his side dexamethasone 6mg IV daily, day 9 Remdesivir IV completed 5 days renal function better, started baricitinib, day 7, increased dose to 4mg on 10/10 when renal function improved Zithromax daily completed 5 days Wean off O2 as able to inflammatory markers down, Cr improved, glucose improved Encourage incentive spirometry and flutter valve (IS was not in the room but RN will get it today) -encouraged OOB to chair keep Cote for now increase lasix to 20mg bid (2) Respiratory failure: Plan: As above (3) LAURENT (acute kidney injury): Plan: Elevation of BUN to 76 from 23 and Cr of 3.63 from prior value of 1.12. Suspect dehydration contributing as well as underlying illness, Covid with hypoxia. He was administered 2L NS in the ER. Continue to hold lisinopril/HCTZ which likely compounded the issue Cr improved to 1.0, making urine, placed cote, adequate UO, actually negative balance luyes normal Lasix to promote negative fluid balance LAURENT is resolved (4) Type 2 diabetes mellitus: Plan: profound hyperglycemia, glucose was 500 on 09/27 mild DKA, elevated beta hydroxy butyrate treated with insulin drip, gap closed, sugars better to low transitioned to basal/bolus insulin pharmacy is making adjustments (5) Metabolic acidosis: Plan: due to DKA, renal failure placed on sodium bicarb 75 plus 1/2 NSS at 80cc/hr, now stopped HCO3 is now normal, acidosis resolved (6) Hypertriglyceridemia: Plan: Chronic -Continue Atorvastatin (7) Hypertension: Plan: Chronic -Continue Metoprolol 50mg po daily -Continue to hold Lisinopril and HCTZ in setting of LAURENT and while giving Lasix use Lasix daily Plan: Ppx - heparin 5000 units tid Pepcid BID-changed to po Code - Full per discussion with patient Dispo -continued stay on PCU Admission and Anticipated Discharge Date Admission Date: September 25, 2021 Subjective Pt seems irritated today, frustrated. Wants to know how long he'll be here. RN reports his O2 was weaned down a bit but just with feeding himself and slight movement in bed, POx was low 80s and FiO2 turned back up. He denies SOB. Was OOB to chair yesterday for a few hours but was frustrated it took so long to get help to get back to bed. No diarrhea, no abd pain, no other concerns Tele with NSR, normal rates Review of Systems Review of Systems: All systems reviewed & are unremarkable except as noted in HPI & below Physical Exam Constitutional: WD/WN, vitals as above + morbidly obese Eyes: + anicteric sclerae Neck: trachea midline, no thyromegaly Respiratory: normal respiratory effort Auscultation: lungs clear to auscultation bilaterally and + diminished lung sounds (right lower and middle lung maldonado) Cardiovascular: RRR, no murmur, no edema Chest (Breasts): Chest: normal inspection of chest Gastrointestinal (Abdomen): normal bowel sounds, soft, nontender, no hepatosplenomegaly Musculoskeletal: Extremities: extremities normal to inspection; no cyanosis and no clubbing Skin: no rashes, warm and dry Neurologic: moves all extremities and awake; no focal motor deficits Psychiatric: Orientation: alert and oriented x 3 Affect: + irritable affect Genitourinary: Cote in place Results & Data Results & Data ([facility]) Vital Signs (Past 12 Hours) Vital Signs Temp Pulse Pulse Pulse Resp BP BP 10/03/21 08:53 99 H 10/03/21 08:00 36.8 C 94 H 23 157/86 H 10/03/21 07:00 10/03/21 06:23 76 22 10/03/21 03:02 36.6 C 67 20 145/78 H 10/02/21 22:26 36.6 C 82 18 155/92 H Pulse Ox Pulse Ox 10/03/21 08:53 10/03/21 08:00 91 10/03/21 07:00 94 10/03/21 06:23 90 10/03/21 03:02 90 10/02/21 22:26 90 Laboratory Results 10/03/21 10/03/21 10/03/21 Range/Units 08:05 05:31 05:27 Sodium 142 (136-145) mmol/L Potassium 4.1 D (3.5-5.1) mmol/L Chloride 109 H (98-107) mmol/L Carbon Dioxide 25 (21-32) mmol/L Anion Gap 8.0 (3-11) BUN 31 H (7-18) mg/dl Creatinine 1.06 1.01 (0.6-1.4) mg/dl Est Cr Clr Drug Dosing 117.6 123.4 ml/min Est GFR ( Amer) 91.8 97.3 ml/min Est GFR (Non-Af Amer) 79.2 83.9 ml/min BUN/Creatinine Ratio 29.5 H (10-20) Glucose 62 L (70-99) mg/dl POC Glucose 84 (70-99) mg/dl Calcium 7.9 L (8.5-10.1) mg/dl 10/02/21 10/02/21 10/02/21 Range/Units 20:34 20:32 16:41 Sodium (136-145) mmol/L Potassium (3.5-5.1) mmol/L Chloride (98-107) mmol/L Carbon Dioxide (21-32) mmol/L Anion Gap (3-11) BUN (7-18) mg/dl Creatinine (0.6-1.4) mg/dl Est Cr Clr Drug Dosing ml/min Est GFR ( Amer) ml/min Est GFR (Non-Af Amer) ml/min BUN/Creatinine Ratio (10-20) Glucose (70-99) mg/dl POC Glucose 306 H* 350 H* 235 H (70-99) mg/dl Calcium (8.5-10.1) mg/dl 10/02/21 Range/Units 11:40 Sodium (136-145) mmol/L Potassium (3.5-5.1) mmol/L Chloride (98-107) mmol/L Carbon Dioxide (21-32) mmol/L Anion Gap (3-11) BUN (7-18) mg/dl Creatinine (0.6-1.4) mg/dl Est Cr Clr Drug Dosing ml/min Est GFR ( Amer) ml/min Est GFR (Non-Af Amer) ml/min BUN/Creatinine Ratio (10-20) Glucose (70-99) mg/dl POC Glucose 191 H (70-99) mg/dl Calcium (8.5-10.1) mg/dl PG Care Time/CCT Total # of Minutes Spent Total Time Spent with Patient: Total time spent is greater than 50% in coordination of care (as documented) at patient's floor/unit and/or counseling patient: Coding Level of Care Code 41440 Subseq Hosp Care Lvl 3 Diagnoses COVID-19 U07.1 Respiratory failure J96.01 Chronicity: acute Respiratory failure complication: hypoxia LAURENT (acute kidney injury) N17.9 Type 2 diabetes mellitus E11.9 Metabolic acidosis E87.2 Hypertriglyceridemia E78.1 Hypertension I10 (1) Respiratory failure Chronicity: acute Respiratory failure complication: hypoxia Qualified Code(s): J96.01 - Acute respiratory failure with hypoxia
[2021-10-03] MEDS: INSULIN HUMAN NPH SC SCH (09:45)
[2021-10-03] MEDS: INSULIN ASPART PER UNIT SC SCH ×4 (09:45→21:19)
--- NOTE | 2021-10-03 14:31 | Pharmacy Report ---
Pharmacy Glycemic Short Note 2 - Date of Service October 03, 2021 - Glycemic Short BSG Results (Last 24 hours): 10/02/21 10/02/21 10/02/21 16:41 20:32 20:34 Glucose POC Glucose 235 H 350 H* 306 H* 10/03/21 10/03/21 10/03/21 05:31 08:05 11:49 Glucose 62 L POC Glucose 84 193 H OUTPATIENT ANTIDIABETIC REGIMEN: * Glimepiride 4 mg daily * Metformin 1000 mg PO BID * HbA1c = 8.4% (08/21/21) ASSESSMENT: 10/03: * BSGs increased throughout the day yesterday: 15-220-569-350 mg/dL * Received 65 units NPH + 20 units Lantus + 61 units Novolog + 5 units IV insulin (CRK=890 units) * Fasting BSG well controlled at 84 mg/dL this AM * No change to Lantus * Steroid-induced postprandial hyperglycemia continues to be a problem * Increased NPH and tightened CF/CR today 10/02: * Mars received a total of 141 units of insulin yesterday (55 units NPH + 25 units Lantus + 61 units Novolog) * BSGs were variable: 29-709-584-248 mg/dL * Fasting BSG was 72 mg/dL this AM * Decreased Lantus further * Steroids continue to cause elevations in BSGs throughout the day * Increased NPH 10/01: * Stressors stable * Severe AM fasting low today. Etiology likely combined NPH and Lantus. NPH best for steroid coverage while ordered a diet therefore will significantly reduce Lantus dose and only provide today if HS BSG >200 mg/dL. Basal insulin will likely need to be modestly increased in the near future, after Lantus wash-out * Post-prandial BSG's significantly elevated yesterday, although PO intake was poor. Will tighten CHO ratio slightly. 09/30: * Pt has been receiving 167-185 units of SQ insulin per day with poor control. * Pt ordered Lantus 40 units SQ BID + NPH 45 units SQ daily (for steroid induced hyperglycemia) and NovoLog per scale CF/CR (07/25 respectively). * BSGs trending downwards now that insulin is at steady state. PO intake low. Will empirically decrease insulin regimen to prevent LOW tomorrow. PLAN FOR INPATIENT GLYCEMIC CONTROL: * Hold outpatient oral diabetes medications (glimepiride, metformin) * Basal insulin * Lantus 0-20 units SC HS * NPH 75 units SC daily with dexamethasone * Bolus insulin * NovoLog SQ ACHS and at 0000 + 0400 tonight * Goal range: 110-140 mg/dL * Correction factor: 8 mg/dL/unit * Carb ratio 1 unit per 2 grams CHOs consumed PLAN FOR DISCHARGE: * To be determined
[2021-10-03] MEDS: INSULIN GLARGINE SOLOSTAR 100 UNITS/ML 3 ML PEN SC SCH (21:19)
[2021-10-04] MEDS: HEPARIN SOD 5,000 UNIT/0.5 ML VIAL SQ SCH (06:14)
[2021-10-04] MEDS: 4mg Daily x 14 days (eGFR >60 mL/min/1.73m2) PO SCH (08:05)
[2021-10-04] MEDS: FAMOTIDINE 20 MG TAB PO SCH ×2 (08:06→20:11)
[2021-10-04] MEDS: ATORVASTATIN 20 MG TAB PO SCH (08:06)
[2021-10-04] MEDS: POTASSIUM CHLORIDE CRTAB 20 MEQ TABCR PO SCH ×2 (08:06→20:11)
[2021-10-04] MEDS: dexAMETHasone 10 MG in SYRINGE 0 ML IV SCH (08:06)
[2021-10-04] MEDS: FUROSEMIDE INJ 20 MG/2 ML VIAL IV SCH ×2 (08:06→17:47)
[2021-10-04] MEDS: METOPROLOL SUCC 50MG EXT REL TAB PO SCH (08:06)
[2021-10-04 08:30] LABS: Creatinine Clr Calc Pharmacy 117.7 ml/min; Est GFR (African American) 92.8 ml/min; Est GFR (Non-African American) 80.1 ml/min
[2021-10-04 09:14] LABS: BUN Creatinine Ratio 27.8 (10-20); Calcium 8.5 mg/dl (8.5-10.1); Creatinine Clr Calc Pharmacy 114.5 ml/min; Est GFR (African American) 89.7 ml/min; Est GFR (Non-African American) 77.4 ml/min; Potassium 3.7 mmol/L (3.5-5.1)
[2021-10-04] MEDS: INSULIN ASPART PER UNIT SC SCH ×4 (09:14→20:07)
[2021-10-04] MEDS: INSULIN HUMAN NPH SC SCH (09:15)
--- NOTE | 2021-10-04 13:16 | Hospitalist Progress Note ---
Date of Service October 04, 2021 Assessment & Plan (1) COVID-19: Plan: 56yo male with history of DM, HTN, HLP and Obesity (BMI of 46) presenting with acute hypoxic respiratory failure secondary to Covid-19 PNA. Patient is not vaccinated against Covid-19. He has been ill approximately 1 week prior to admission With Covid-19 pneumonia Chest x-ray with diffuse bilateral infiltrates Finally making more improvements today, weaning down O2--> now at HFNC 50L and 65% FiO2 Responded nicely to increased dose of IV lasix continue CPAP HS, tolerating well encouraged him to lay on his side dexamethasone 6mg IV daily, day 10 today-discontinued Remdesivir IV completed 5 days renal function better, started baricitinib, day 8, increased dose to 4mg on 10/10 when renal function improved Zithromax daily completed 5 days Wean off O2 as able to inflammatory markers down, Cr improved, glucose improved Encourage incentive spirometry and flutter valve (IS was not in the room but RN will get it today) -encouraged OOB to chair israel Cote today continue lasix IV 20mg bid (2) Respiratory failure: Plan: As above (3) LAURENT (acute kidney injury): Plan: Elevation of BUN to 76 from 23 and Cr of 3.63 from prior value of 1.12. Suspect dehydration contributing as well as underlying illness, Covid with hypoxia. He was administered 2L NS in the ER. Continue to hold lisinopril/HCTZ which likely compounded the issue Cr improved to 1.0, making urine, placed cote, adequate UO, actually negative balance lytes normal Lasix to promote negative fluid balance LAURENT is resolved dc [place] (4) Type 2 diabetes mellitus: Plan: profound hyperglycemia, glucose was 500 on 09/27 mild DKA, elevated beta hydroxy butyrate treated with insulin drip, gap closed, sugars better to low at times in the AMs transitioned to basal/bolus insulin pharmacy is making adjustments-now on NPH informed Pharmacy I am discontinuing the Decadron for tomorrow (5) Metabolic acidosis: Plan: due to DKA, renal failure placed on sodium bicarb 75 plus 1/2 NSS at 80cc/hr, now stopped HCO3 is now normal, acidosis resolved (6) Hypertriglyceridemia: Plan: Chronic -Continue Atorvastatin (7) Hypertension: Plan: Chronic -Continue Metoprolol 50mg po daily -Continue to hold Lisinopril and HCTZ in setting of LAURENT and while giving Lasix continue lasix bid Plan: Ppx - now that renal failure resolved--> change to Loveno 0.5mg/kg bid Pepcid BID for GI porph Code - Full per discussion with patient Dispo -continued stay on PCU Admission and Anticipated Discharge Date Admission Date: September 25, 2021 Subjective Pt feels better today, is OOB to chair, weaning down on FiO2. Eating and drinking, using flutter an IS. Not HANKINS, no CP. Tele with NSR Review of Systems Review of Systems: All systems reviewed & are unremarkable except as noted in HPI & below Physical Exam Constitutional: WD/WN, vitals as above + morbidly obese Eyes: + anicteric sclerae Neck: trachea midline, no thyromegaly Respiratory: normal respiratory effort Auscultation: lungs clear to auscultation bilaterally and + diminished lung sounds (right lower and middle lung maldonado) Cardiovascular: RRR, no murmur, no edema Chest (Breasts): Chest: normal inspection of chest Gastrointestinal (Abdomen): normal bowel sounds, soft, nontender, no hepatos plenomegaly Musculoskeletal: Extremities: extremities normal to inspection; no cyanosis and no clubbing Skin: no rashes, warm and dry Neurologic: moves all extremities and awake; no focal motor deficits Psychiatric: A+Ox3, euthymic affect Results & Data Results & Data ([facility]) Vital Signs (Past 12 Hours) Vital Signs Temp Pulse Pulse Pulse Resp BP Pulse Ox 10/04/21 11:27 36.8 C 82 17 125/74 93 10/04/21 11:17 89 24 96 10/04/21 07:27 36.5 C 76 22 135/81 97 10/04/21 07:08 64 20 98 10/04/21 07:00 66 10/04/21 06:14 26 H 94 10/04/21 03:24 36.8 C 73 20 133/67 93 Laboratory Results 10/04/21 10/04/21 10/04/21 Range/Units 11:26 09:19 08:04 Sodium (136-145) mmol/L Potassium (3.5-5.1) mmol/L Chloride (98-107) mmol/L Carbon Dioxide (21-32) mmol/L Anion Gap (3-11) BUN (7-18) mg/dl Creatinine (0.6-1.4) mg/dl Est Cr Clr Drug Dosing ml/min Est GFR ( Amer) ml/min Est GFR (Non-Af Amer) ml/min BUN/Creatinine Ratio (10-20) Glucose (70-99) mg/dl POC Glucose 274 H 140 H 58 L* (70-99) mg/dl Calcium (8.5-10.1) mg/dl 10/04/21 10/04/21 10/04/21 Range/Units 08:03 06:29 06:29 Sodium 139 (136-145) mmol/L Potassium 3.7 (3.5-5.1) mmol/L Chloride 103 (98-107) mmol/L Carbon Dioxide 27 (21-32) mmol/L Anion Gap 9.0 (3-11) BUN 30 H (7-18) mg/dl Creatinine 1.08 1.05 (0.6-1.4) mg/dl Est Cr Clr Drug Dosing 114.5 117.7 ml/min Est GFR ( Amer) 89.7 92.8 ml/min Est GFR (Non-Af Amer) 77.4 80.1 ml/min BUN/Creatinine Ratio 27.8 H (10-20) Glucose 40 L* (70-99) mg/dl POC Glucose 57 L* (70-99) mg/dl Calcium 8.5 (8.5-10.1) mg/dl 10/03/21 10/03/21 Range/Units 20:39 16:47 Sodium (136-145) mmol/L Potassium (3.5-5.1) mmol/L Chloride (98-107) mmol/L Carbon Dioxide (21-32) mmol/L Anion Gap (3-11) BUN (7-18) mg/dl Creatinine (0.6-1.4) mg/dl Est Cr Clr Drug Dosing ml/min Est GFR ( Amer) ml/min Est GFR (Non-Af Amer) ml/min BUN/Creatinine Ratio (10-20) Glucose (70-99) mg/dl POC Glucose 222 H 230 H (70-99) mg/dl Calcium (8.5-10.1) mg/dl PG Care Time/CCT Total # of Minutes Spent Total Time Spent with Patient: Total time spent is greater than 50% in coordination of care (as documented) at patient's floor/unit and/or counseling patient: Coding Level of Care Code 00203 Subseq Hosp Care Lvl 3 Diagnoses COVID-19 U07.1 Respiratory failure J96.01 Chronicity: acute Respiratory failure complication: hypoxia LAURENT (acute kidney injury) N17.9 Type 2 diabetes mellitus E11.9 Metabolic acidosis E87.2 Hypertriglyceridemia E78.1 Hypertension I10 (1) Respiratory failure Chronicity: acute Respiratory failure complication: hypoxia Qualified Code(s): J96.01 - Acute respiratory failure with hypoxia
[2021-10-04] MEDS ORDERED: POTASSIUM CHLORIDE CRTAB 20 MEQ TABCR PO STA (13:17)
--- NOTE | 2021-10-04 14:03 | Pharmacy Report ---
Pharmacy Glycemic Short Note 2 - Date of Service October 04, 2021 - Glycemic Short BSG Results (Last 24 hours): 10/03/21 10/03/21 10/04/21 16:47 20:39 06:29 Glucose 40 L* POC Glucose 230 H 222 H 10/04/21 10/04/21 10/04/21 08:03 08:04 09:19 Glucose POC Glucose 57 L* 58 L* 140 H 10/04/21 11:26 Glucose POC Glucose 274 H OUTPATIENT ANTIDIABETIC REGIMEN: * Glimepiride 4 mg daily * Metformin 1000 mg PO BID * HbA1c = 8.4% (08/21/21) ASSESSMENT: 10/04: * Fasting BSGs consistently low. Patient had a hypoglycemic event this AM down 58mg/dL. Low fasting BSGs likely due to HS Lantus dose. Plan to discontinue HS Lantus. * BSGs rise throughout the day above goal, consistent with steroid induced hyperglycemia. NPH increased to 75 units yesterday to help with prandial coverage. Today was day #10 of dex; discontinued this afternoon. Anticipate insulin requirements will decrease. Plan for an additional dose of 10 units NPH this afternoon to help with evening/early overnight BSGs, and will transition back to AM Lantus as basal monotherapy tomorrow given steroids discontinued. * No change to Novolog. Added overnight checks with a CF of 15mg/dL given prone to AM hypoglycemia. 10/03: * BSGs increased throughout the day yesterday: 71-159-805-350 mg/dL * Received 65 units NPH + 20 units Lantus + 61 units Novolog + 5 units IV insulin (GRO=994 units) * Fasting BSG well controlled at 84 mg/dL this AM * No change to Lantus * Steroid-induced postprandial hyperglycemia continues to be a problem * Increased NPH and tightened CF/CR today 10/02: * Mars received a total of 141 units of insulin yesterday (55 units NPH + 25 units Lantus + 61 units Novolog) * BSGs were variable: 36-939-766-248 mg/dL * Fasting BSG was 72 mg/dL this AM * Decreased Lantus further * Steroids continue to cause elevations in BSGs throughout the day * Increased NPH 10/01: * Stressors stable * Severe AM fasting low today. Etiology likely combined NPH and Lantus. NPH best for steroid coverage while ordered a diet therefore will significantly reduce Lantus dose and only provide today if HS BSG >200 mg/dL. Basal insulin will likely need to be modestly increased in the near future, after Lantus wash-out * Post-prandial BSG's significantly elevated yesterday, although PO intake was poor. Will tighten CHO ratio slightly. PLAN FOR INPATIENT GLYCEMIC CONTROL: * Hold outpatient oral diabetes medications (glimepiride, metformin) * Basal insulin * NPH 75 units AM, 10 units afternoon * Bolus insulin * NovoLog SQ ACHS and at 0000 + 0400 tonight * Goal range: 110-140 mg/dL * Correction factor: 8 mg/dL/unit * Carb ratio 1 unit per 2 grams CHOs consumed PLAN FOR DISCHARGE: * To be determined
[2021-10-04] MEDS ORDERED: INSULIN HUMAN NPH SC ONE (16:00)
[2021-10-04] MEDS: ENOXAPARIN 80 MG/0.8 ML SYR SQ SCH (20:10)
[2021-10-05] MEDS: INSULIN ASPART PER UNIT SC SCH ×6 (00:10→20:12)
[2021-10-05] MEDS: CARBOHYDRATES FOR HYPOGLYCEMIA PO PRN ×2 (04:17→23:58)
[2021-10-05 07:37] LABS: Eosinophils % (auto) 0.8 %; Hematocrit (blood only) 37.6 % (42-52); Hemoglobin 12.9 g/dL (14.0-18.0); Immature Granulocytes % (auto) 0.8 %; Lymphocytes # (auto) 0.72 K/uL (1.2-3.4); Lymphocytes % (auto) 5.7 %; Mean Corpuscular Hemoglobin 28.9 pg (25-34); Mean Corpuscular Hgb Conc 34.3 g/dL (32-36); Mean Corpuscular Volume 84.3 fL (80-100); Monocytes # (auto) 0.37 K/uL (0.11-0.59); Monocytes % (auto) 2.9 %; Neutrophils % (auto) 89.8 %; Platelet Count 230 K/uL (130-400); RDW Coefficient of Variation 13.6 % (11.5-14.5); RDW Standard Deviation 41.6 fL (36.4-46.3); Red Blood Count 4.46 M/uL (4.7-6.1); White Blood Count 12.59 K/uL (4.8-10.8)
[2021-10-05 08:06] LABS: Albumin Level 2.3 gm/dl (3.4-5.0); BUN Creatinine Ratio 27.1 (10-20); C Reactive Protein 2.26 mg/dl (0-0.29); Calcium 8.6 mg/dl (8.5-10.1); Creatinine Clr Calc Pharmacy 115.1 ml/min; Est GFR (African American) 90.7 ml/min; Est GFR (Non-African American) 78.3 ml/min
[2021-10-05 08:09] LABS: Albumin Globulin Ratio 0.5 (0.9-2); Bilirubin,Total 0.7 mg/dl (0.2-1); Globulin 4.6 gm/dl (2.5-4.0); Total Protein 6.9 gm/dl (6.4-8.2)
[2021-10-05 08:23] LABS: Potassium 4.1 mmol/L (3.5-5.1)
[2021-10-05] MEDS: POTASSIUM CHLORIDE CRTAB 20 MEQ TABCR PO SCH ×2 (08:26→19:48)
[2021-10-05] MEDS: FAMOTIDINE 20 MG TAB PO SCH ×2 (08:26→19:48)
[2021-10-05] MEDS: ATORVASTATIN 20 MG TAB PO SCH (08:26)
[2021-10-05] MEDS: ENOXAPARIN 80 MG/0.8 ML SYR SQ SCH ×2 (08:27→19:48)
[2021-10-05] MEDS: METOPROLOL SUCC 50MG EXT REL TAB PO SCH (08:27)
[2021-10-05] MEDS: FUROSEMIDE INJ 20 MG/2 ML VIAL IV SCH ×2 (08:27→17:41)
[2021-10-05] MEDS: 4mg Daily x 14 days (eGFR >60 mL/min/1.73m2) PO SCH (08:29)
[2021-10-05] MEDS: INSULIN GLARGINE SOLOSTAR 100 UNITS/ML 3 ML PEN SC SCH (08:42)
[2021-10-05] MEDS ORDERED: INSULIN HUMAN NPH SC ONE (09:00)
--- NOTE | 2021-10-05 13:26 | Pharmacy Report ---
Pharmacy Glycemic Short Note 2 - Date of Service October 05, 2021 - Glycemic Short BSG Results (Last 24 hours): 10/04/21 10/04/21 10/05/21 16:30 19:49 00:07 Glucose POC Glucose 218 H 264 H 104 H 10/05/21 10/05/21 10/05/21 04:06 04:14 04:32 Glucose POC Glucose 51 L* 49 L* 81 10/05/21 10/05/21 10/05/21 07:03 07:26 11:14 Glucose 96 POC Glucose 109 H 157 H OUTPATIENT ANTIDIABETIC REGIMEN: * Glimepiride 4 mg daily * Metformin 1000 mg PO BID * HbA1c = 8.4% (08/21/21) ASSESSMENT: 10/05: * Fasting BSG low again this AM, despite discontinuing HS Lantus yesterday. Prandial BSGs high into mid 200s yesterday. * Steroids have been discontinued. DM2 diet ordered and tolerating per documentation. * Attempt to begin transition to Lantus this AM, however total basal insulin dose will be decreased due to fasting low BSGs and steroid discontinuation. Will continue with smaller dose of AM again NPH today (50/50 split) with hopes to gain control of prandial BSGs in the event residual steroid effects persisting. * Novolog scale loosened today given AM BSG of 58mg/dL. Will do overnight checks tonight. 10/04: * Fasting BSGs consistently low. Patient had a hypoglycemic event this AM down 58mg/dL. Low fasting BSGs likely due to HS Lantus dose. Plan to discontinue HS Lantus. * BSGs rise throughout the day above goal, consistent with steroid induced hyperglycemia. NPH increased to 75 units yesterday to help with prandial coverage. Today was day #10 of dex; discontinued this afternoon. Anticipate insulin requirements will decrease. Plan for an additional dose of 10 units N PH this afternoon to help with evening/early overnight BSGs, and will transition back to AM Lantus as basal monotherapy tomorrow given steroids discontinued. * No change to Novolog. Added overnight checks with a CF of 15mg/dL given prone to AM hypoglycemia. 10/03: * BSGs increased throughout the day yesterday: 67-213-190-350 mg/dL * Received 65 units NPH + 20 units Lantus + 61 units Novolog + 5 units IV insulin (RJX=006 units) * Fasting BSG well controlled at 84 mg/dL this AM * No change to Lantus * Steroid-induced postprandial hyperglycemia continues to be a problem * Increased NPH and tightened CF/CR today 10/02: * Mars received a total of 141 units of insulin yesterday (55 units NPH + 25 units Lantus + 61 units Novolog) * BSGs were variable: 17-320-297-248 mg/dL * Fasting BSG was 72 mg/dL this AM * Decreased Lantus further * Steroids continue to cause elevations in BSGs throughout the day * Increased NPH PLAN FOR INPATIENT GLYCEMIC CONTROL: * Hold outpatient oral diabetes medications (glimepiride, metformin) * Basal insulin * NPH 15 units qAM * Lantus 15 units qAM * Bolus insulin * NovoLog SQ ACHS and at 0000 + 0400 tonight * Goal range: 110-140 mg/dL * Correction factor: 10 mg/dL/unit * Carb ratio 1 unit per 3 grams CHOs consumed PLAN FOR DISCHARGE: * To be determined
--- NOTE | 2021-10-05 17:09 | Hospitalist Progress Note ---
Date of Service October 05, 2021 Assessment & Plan (1) COVID-19: Plan: 56yo male with history of DM, HTN, HLP and Obesity (BMI of 46) presenting with acute hypoxic respiratory failure secondary to Covid-19 PNA. Patient is not vaccinated against Covid-19. He has been ill approximately 1 week prior to admission With Covid-19 pneumonia Chest x-ray with diffuse bilateral infiltrates Continues to make improvements today, weaning down O2--> now at HFNC 50L and 55% FiO2 continue CPAP HS, tolerating well encouraged him to lay on his side Completed 10-day course of dexamethasone 6mg IV daily Remdesivir IV completed 5 days renal function better, started baricitinib, day 9, increased dose to 4mg on 10/10 when renal function improved Zithromax daily completed 5 days Wean off O2 as able to inflammatory markers down-CRP down to 2.2 Cr improved, glucose improved Encourage incentive spirometry and flutter valve -Add on guaifenesin with dextromethorphan as needed, Tessalon Perles as needed for cough -encouraged OOB to chair and he is ambulating to the toilet in the room continue lasix IV 20mg bid daily, follow BMP (2) Respiratory failure: Plan: As above (3) LAURENT (acute kidney injury): Plan: Elevation of BUN to 76 from 23 and Cr of 3.63 from prior value of 1.12. Suspect dehydration contributing as well as underlying illness, Covid with hypoxia. He was administered 2L NS in the ER. Continue to hold lisinopril/HCTZ which likely compounded the issue Cr improved to 1.0, making urine, placed cote, adequate UO, actually negative balance lytes normal Continue Lasix to promote negative fluid balance LAURENT is resolved Have since discontinued Cote catheter and is voiding on his own (4) Type 2 diabetes mellitus: Plan: profound hyperglycemia, glucose was 500 on 09/27 mild DKA, elevated beta hydroxy butyrate treated with insulin drip, gap closed, sugars better to low at times in the AMs transitioned to basal/bolus insulin Continues to have morning hypoglycemia Dexamethasone is now discontinued Pharmacy is managing (5) Metabolic acidosis: Plan: due to DKA, renal failure placed on sodium bicarb 75 plus 1/2 NSS at 80cc/hr, now stopped HCO3 is now normal, acidosis resolved (6) Hypertriglyceridemia: Plan: Chronic -Continue Atorvastatin (7) Hypertension: Plan: Chronic, blood pressures are controlled -Continue Metoprolol 50mg po daily -Continue to hold Lisinopril and HCTZ while giving Lasix continue lasix bid Plan: Ppx -continue Lovenox 0.5mg/kg bid Pepcid BID for GI prophylaxis Code - Full per discussion with patient Dispo -continued stay on PCU, expect he will stay for another 3 to 5 days Admission and Anticipated Discharge Date Admission Date: September 25, 2021 Subjective Patient reports feeling okay today. He has a cough and is requesting cough syrup. He is still winded with getting up but he has been walking to the toilet in the room and back without desaturating. His high flow nasal cannula is weaned down to 50 L and 55% FiO2 when I saw him. Telemetry is normal sinus rhythm rate 60s to 70s Review of Systems Review of Systems: All systems reviewed & are unremarkable except as noted in HPI & below Physical Exam Constitutional: WD/WN, vitals as above + morbidly obese Eyes: + anicteric sclerae Neck: trachea midline, no thyromegaly Respiratory: normal respiratory effort Auscultation: lungs clear to auscultation bilaterally and + diminished lung sounds (right lower and middle lung maldonado) Cardiovascular: RRR, no murmur, no edema Chest (Breasts): Chest: normal inspection of chest Gastrointestinal (Abdomen): normal bowel sounds, soft, nontender, no hepatosplenomegaly Musculoskeletal: Extremities: extremities normal to inspection; no cyanosis and no clubbing Skin: no rashes, warm and dry Neurologic: moves all extremities and awake; no focal motor deficits Psychiatric: A+Ox3, euthymic affect Results & Data Results & Data ([facility]) Vital Signs (Past 12 Hours) Vital Signs Temp Pulse Pulse Resp BP Pulse Ox 10/05/21 15:43 103 H 17 96 10/05/21 14:59 36.9 C 119 H 24 139/76 90 10/05/21 12:15 95 H 16 90 10/05/21 11:36 36.8 C 88 28 H 146/80 H 90 10/05/21 09:48 58 L 10/05/21 08:05 92 H 20 91 10/05/21 07:51 36.5 C 71 18 130/80 93 Laboratory Results 10/05/21 10/05/2121 Range/Units 16:25 11:14 07:26 WBC (4.8-10.8) K/uL RBC (4.7-6.1) M/uL Hgb (14.0-18.0) g/dL Hct (42-52) % MCV (80-100) fL MCH (25-34) pg MCHC (32-36) g/dL RDW Std Deviation (36.4-46.3) fL RDW Coeff of Val (11.5-14.5) % Plt Count (130-400) K/uL MPV (7.4-10.4) fL Immature Gran % (Auto) % Neut % (Auto) % Lymph % (Auto) % [place] % (Auto) % Eos % (Auto) % Baso % (Auto) % Neut # (Auto) (1.4-6.5) K/uL Lymph # (Auto) (1.2-3.4) K/uL [place] # (Auto) (0.11-0.59) K/uL Eos # (Auto) (0-0.5) K/uL Baso # (Auto) (0-0.2) K/uL Immature Gran # (Auto) (0.00-0.02) K/uL Sodium (136-145) mmol/L Potassium (3.5-5.1) mmol/L Chloride (98-107) mmol/L Carbon Dioxide (21-32) mmol/L Anion Gap (3-11) BUN (7-18) mg/dl Creatinine (0.6-1.4) mg/dl Est Cr Clr Drug Dosing ml/min Est GFR ( Amer) ml/min Est GFR (Non-Af Amer) ml/min BUN/Creatinine Ratio (10-20) Glucose (70-99) mg/dl POC Glucose 164 H 157 H 109 H (70-99) mg/dl Calcium (8.5-10.1) mg/dl Total Bilirubin (0.2-1) mg/dl AST (15-37) U/L ALT (12-78) Alkaline Phosphatase (45-117) U/L C-Reactive Protein (0-0.29) mg/dl Total Protein (6.4-8.2) gm/dl Albumin (3.4-5.0) gm/dl Globulin (2.5-4.0) gm/dl Albumin/Globulin Ratio (0.9-2) 10/05/21 10/05/21 10/05/21 Range/Units 07:03 07:03 04:32 WBC 12.59 H (4.8-10.8) K/uL RBC 4.46 L (4.7-6.1) M/uL Hgb 12.9 L (14.0-18.0) g/dL Hct 37.6 L (42-52) % MCV 84.3 (80-100) fL MCH 28.9 (25-34) pg MCHC 34.3 (32-36) g/dL RDW Std Deviation 41.6 (36.4-46.3) fL RDW Coeff of Val 13.6 (11.5-14.5) % Plt Count 230 (130-400) K/uL MPV 9.0 (7.4-10.4) fL Immature Gran % (Auto) 0.8 % Neut % (Auto) 89.8 % Lymph % (Auto) 5.7 % [place] % (Auto) 2.9 % Eos % (Auto) 0.8 % Baso % (Auto) 0.0 % Neut # (Auto) 11.30 H (1.4-6.5) K/uL Lymph # (Auto) 0.72 L (1.2-3.4) K/uL [place] # (Auto) 0.37 (0.11-0.59) K/uL Eos # (Auto) 0.10 (0-0.5) K/uL Baso # (Auto) 0.00 (0-0.2) K/uL Immature Gran # (Auto) 0.10 H (0.00-0.02) K/uL Sodium 137 (136-145) mmol/L Potassium 4.1 (3.5-5.1) mmol/L Chloride 102 (98-107) mmol/L Carbon Dioxide 29 (21-32) mmol/L Anion Gap 6.0 (3-11) BUN 29 H (7-18) mg/dl Creatinine 1.07 (0.6-1.4) mg/dl Est Cr Clr Drug Dosing 115.1 ml/min Est GFR ( Amer) 90.7 ml/min Est GFR (Non-Af Amer) 78.3 ml/min BUN/Creatinine Ratio 27.1 H (10-20) Glucose 96 (70-99) mg/dl POC Glucose 81 (70-99) mg/dl Calcium 8.6 (8.5-10.1) mg/dl Total Bilirubin 0.7 (0.2-1) mg/dl AST 40 H (15-37) U/L ALT 49 (12-78) Alkaline Phosphatase 68 D (45-117) U/L C-Reactive Protein 2.26 H (0-0.29) mg/dl Total Protein 6.9 (6.4-8.2) gm/dl Albumin 2.3 L (3.4-5.0) gm/dl Globulin 4.6 H (2.5-4.0) gm/dl Albumin/Globulin Ratio 0.5 L (0.9-2) 10/05/21 10/05/21 10/05/21 Range/Units 04:14 04:06 00:07 WBC (4.8-10.8) K/uL RBC (4.7-6.1) M/uL Hgb (14.0-18.0) g/dL Hct (42-52) % MCV (80-100) fL MCH (25-34) pg MCHC (32-36) g/dL RDW Std Deviation (36.4-46.3) fL RDW Coeff of Val (11.5-14.5) % Plt Count (130-400) K/uL MPV (7.4-10.4) fL Immature Gran % (Auto) % Neut % (Auto) % Lymph % (Auto) % [place] % (Auto) % Eos % (Auto) % Baso % (Auto) % Neut # (Auto) (1.4-6.5) K/uL Lymph # (Auto) (1.2-3.4) K/uL [place] # (Auto) (0.11-0.59) K/uL Eos # (Auto) (0-0.5) K/uL Baso # (Auto) (0-0.2) K/uL Immature Gran # (Auto) (0.00-0.02) K/uL Sodium (136-145) mmol/L Potassium (3.5-5.1) mmol/L Chloride (98-107) mmol/L Carbon Dioxide (21-32) mmol/L Anion Gap (3-11) BUN (7-18) mg/dl Creatinine (0.6-1.4) mg/dl Est Cr Clr Drug Dosing ml/min Est GFR ( Amer) ml/min Est GFR (Non-Af Amer) ml/min BUN/Creatinine Ratio (10-20) Glucose (70-99) mg/dl POC Glucose 49 L* 51 L* 104 H (70-99) mg/dl Calcium (8.5-10.1) mg/dl Total Bilirubin (0.2-1) mg/dl AST (15-37) U/L ALT (12-78) Alkaline Phosphatase (45-117) U/L C-Reactive Protein (0-0.29) mg/dl Total Protein (6.4-8.2) gm/dl Albumin (3.4-5.0) gm/dl Globulin (2.5-4.0) gm/dl Albumin/Globulin Ratio (0.9-2) 10/04/21 Range/Units 19:49 WBC (4.8-10.8) K/uL RBC (4.7-6.1) M/uL Hgb (14.0-18.0) g/dL Hct (42-52) % MCV (80-100) fL MCH (25-34) pg MCHC (32-36) g/dL RDW Std Deviation (36.4-46.3) fL RDW Coeff of Val (11.5-14.5) % Plt Count (130-400) K/uL MPV (7.4-10.4) fL Immature Gran % (Auto) % Neut % (Auto) % Lymph % (Auto) % [place] % (Auto) % Eos % (Auto) % Baso % (Auto) % Neut # (Auto) (1.4-6.5) K/uL Lymph # (Auto) (1.2-3.4) K/uL [place] # (Auto) (0.11-0.59) K/uL Eos # (Auto) (0-0.5) K/uL Baso # (Auto) (0-0.2) K/uL Immature Gran # (Auto) (0.00-0.02) K/uL Sodium (136-145) mmol/L Potassium (3.5-5.1) mmol/L Chloride (98-107) mmol/L Carbon Dioxide (21-32) mmol/L Anion Gap (3-11) BUN (7-18) mg/dl Creatinine (0.6-1.4) mg/dl Est Cr Clr Drug Dosing ml/min Est GFR ( Amer) ml/min Est GFR (Non-Af Amer) ml/min BUN/Creatinine Ratio (10-20) Glucose (70-99) mg/dl POC Glucose 264 H (70-99) mg/dl Calcium (8.5-10.1) mg/dl Total Bilirubin (0.2-1) mg/dl AST (15-37) U/L ALT (12-78) Alkaline Phosphatase (45-117) U/L C-Reactive Protein (0-0.29) mg/dl Total Protein (6.4-8.2) gm/dl Albumin (3.4-5.0) gm/dl Globulin (2.5-4.0) gm/dl Albumin/Globulin Ratio (0.9-2) PG Care Time/CCT Total # of Minutes Spent Total Time Spent with Patient: Total time spent is greater than 50% in coordination of care (as documented) at patient's floor/unit and/or counseling patient: Coding Level of Care Code 99218 Subseq Hosp Care Lvl 3 Diagnoses COVID-19 U07.1 Respiratory failure J96.01 Chronicity: acute Respiratory failure complication: hypoxia LAURENT (acute kidney injury) N17.9 Type 2 diabetes mellitus E11.9 Metabolic acidosis E87.2 Hypertriglyceridemia E78.1 Hypertension I10 (1) Respiratory failure Chronicity: acute Respiratory failure complication: hypoxia Qualified Code (s): J96.01 - Acute respiratory failure with hypoxia
[2021-10-05] MEDS: guaiFENesin/DEXTROM SYRUP 200MG/20MG 10ML UDC PO PRN (19:24)
[2021-10-06] MEDS: INSULIN ASPART PER UNIT SC SCH ×7 (00:02→23:45)
[2021-10-06 06:47] LABS: Basophils # (auto) 0.01 K/uL (0-0.2); Basophils % (auto) 0.1 %; Eosinophils # (auto) 0.18 K/uL (0-0.5); Eosinophils % (auto) 1.8 %; Hematocrit (blood only) 38.4 % (42-52); Hemoglobin 13.1 g/dL (14.0-18.0); Immature Granulocytes # (auto) 0.06 K/uL (0.00-0.02); Immature Granulocytes % (auto) 0.6 %; Lymphocytes # (auto) 0.68 K/uL (1.2-3.4); Lymphocytes % (auto) 6.6 %; Mean Corpuscular Hemoglobin 28.5 pg (25-34); Mean Corpuscular Hgb Conc 34.1 g/dL (32-36); Mean Corpuscular Volume 83.7 fL (80-100); Mean Platelet Volume 9.2 fL (7.4-10.4); Monocytes # (auto) 0.18 K/uL (0.11-0.59); Monocytes % (auto) 1.8 %; Neutrophils # (auto) 9.16 K/uL (1.4-6.5); Neutrophils % (auto) 89.1 %; Platelet Count 209 K/uL (130-400); RDW Coefficient of Variation 13.6 % (11.5-14.5); Red Blood Count 4.59 M/uL (4.7-6.1); White Blood Count 10.27 K/uL (4.8-10.8)
[2021-10-06 07:24] LABS: Albumin Level 2.3 gm/dl (3.4-5.0); BUN Creatinine Ratio 28.6 (10-20); Calcium 8.7 mg/dl (8.5-10.1); Creatinine Clr Calc Pharmacy 127.5 ml/min; Est GFR (African American) 102.2 ml/min; Est GFR (Non-African American) 88.1 ml/min; Potassium 4.2 mmol/L (3.5-5.1)
[2021-10-06 07:29] LABS: Albumin Globulin Ratio 0.5 (0.9-2); Bilirubin,Total 0.9 mg/dl (0.2-1); Globulin 4.4 gm/dl (2.5-4.0); Total Protein 6.7 gm/dl (6.4-8.2)
[2021-10-06] MEDS: ENOXAPARIN 80 MG/0.8 ML SYR SQ SCH ×2 (07:46→20:02)
[2021-10-06] MEDS: ATORVASTATIN 20 MG TAB PO SCH (07:46)
[2021-10-06] MEDS: FAMOTIDINE 20 MG TAB PO SCH ×2 (07:46→20:05)
[2021-10-06] MEDS: POTASSIUM CHLORIDE CRTAB 20 MEQ TABCR PO SCH ×2 (07:46→20:04)
[2021-10-06] MEDS: METOPROLOL SUCC 50MG EXT REL TAB PO SCH (07:46)
[2021-10-06] MEDS: FUROSEMIDE INJ 20 MG/2 ML VIAL IV SCH (07:48)
[2021-10-06] MEDS: INSULIN GLARGINE SOLOSTAR 100 UNITS/ML 3 ML PEN SC SCH (07:58)
[2021-10-06] MEDS ORDERED: FUROSEMIDE INJ 20 MG/2 ML VIAL IV ONE (08:15)
[2021-10-06] MEDS: 4mg Daily x 14 days (eGFR >60 mL/min/1.73m2) PO SCH (08:23)
--- NOTE | 2021-10-06 12:42 | Pharmacy Report ---
Pharmacy Glycemic Short Note 2 - Date of Service October 06, 2021 - Glycemic Short BSG Results (Last 24 hours): 10/05/21 10/05/21 10/05/21 16:25 19:27 23:51 Glucose POC Glucose 164 H 174 H 59 L* 10/05/21 10/06/21 10/06/21 23:52 00:15 03:52 Glucose POC Glucose 64 L* 95 97 10/06/21 10/06/21 10/06/21 05:56 07:49 11:51 Glucose 99 POC Glucose 93 246 H OUTPATIENT ANTIDIABETIC REGIMEN: * Glimepiride 4 mg daily * Metformin 1000 mg PO BID * HbA1c = 8.4% (08/21/21) ASSESSMENT: 10/06: * BSGs well controlled yesterday throughout the day, however dropped into 60s around midnight last night. * Steroids have been discontinued. DM2 diet ordered. * Lantus 15 unit dose given this AM prior to discontinuation. Unclear what is contributing to overnight lows at this point as his BSGs tend to rise significantly throughout the day. NPH discontinued entirely today. No change to Lantus dose this AM. Basal insulin has been decreased by >75% the past 72 hours. Will need to reassess BSGs in AM and enter basal orders for tomorrow if appropriate. * Novolog CF/CR loosened from 07/25 to 06/03 this AM with an HS order for CF 20 in attempt to minimize further lows. Overnight checks ordered. 10/05: * Fasting BSG low again this AM, despite discontinuing HS Lantus yesterday. Prandial BSGs high into mid 200s yesterday. * Steroids have been discontinued. DM2 diet ordered and tolerating per documentation. * Attempt to begin transition to Lantus this AM, however total basal insulin dose will be decreased due to fasting low BSGs and steroid discontinuation. Will continue with smaller dose of AM again NPH today (50/50 split) with hopes to gain control of prandial BSGs in the event residual steroid effects persisting. * Novolog scale loosened today given AM BSG of 58mg/dL. Will do overnight checks tonight. 10/04: * Fasting BSGs consistently low. Patient had a hypoglycemic event this AM down 58mg/dL. Low fasting BSGs likely due to HS Lantus dose. Plan to discontinue HS Lantus. * BSGs rise throughout the day above goal, consistent with steroid induced hyperglycemia. NPH increased to 75 units yesterday to help with prandial coverage. Today was day #10 of dex; discontinued this afternoon. Anticipate insulin requirements will decrease. Plan for an additional dose of 10 units NPH this afternoon to help with evening/early overnight BSGs, and will transition back to AM Lantus as basal monotherapy tomorrow given steroids discontinued. * No change to Novolog. Added overnight checks with a CF of 15mg/dL given prone to AM hypoglycemia. 10/03: * BSGs increased throughout the day yesterday: 77-107-355-350 mg/dL * Received 65 units NPH + 20 units Lantus + 61 units Novolog + 5 units IV insulin (UEJ=502 units) * Fasting BSG well controlled at 84 mg/dL this AM * No change to Lantus * Steroid-induced postprandial hyperglycemia continues to be a problem * Increased NPH and tightened CF/CR today PLAN FOR INPATIENT GLYCEMIC CONTROL: * Hold outpatient oral diabetes medications (glimepiride, metformin) * Basal insulin * Lantus 15 units qAM * Bolus insulin * NovoLog SQ ACHS and at 0000 + 0400 tonight * Goal range: 110-140 mg/dL, 140-180mg/dL overnight * Correction factor: 15 mg/dL/unit (HS CF, 20mg/dL/unit) * Carb ratio 1 unit per 5 grams CHOs consumed (no HS carb ratio) PLAN FOR DISCHARGE: * To be determined
--- NOTE | 2021-10-06 16:51 | Hospitalist Progress Note ---
Date of Service October 06, 2021 Assessment & Plan (1) COVID-19: Plan: 56yo male with history of DM, HTN, HLP and Obesity (BMI of 46) presenting with acute hypoxic respiratory failure secondary to Covid-19 PNA. Patient is not vaccinated against Covid-19. He has been ill approximately 1 week prior to admission With Covid-19 pneumonia Chest x-ray with diffuse bilateral infiltrates continues to make improvements today, weaning down O2--> was on high flow nasal cannula Vapotherm for 10 days and is finally now weaned down to 15 L on the wall high flow nasal cannula. encouraged him to lay on his side Completed 10-day course of dexamethasone 6mg IV daily Remdesivir IV completed 5 days renal function better, started baricitinib, day 10, increased dose to 4mg on 10/10 when renal function improved Zithromax daily completed 5 days Wean off O2 as able to inflammatory markers down-CRP down to 2.2 Encourage incentive spirometry and flutter valve -Continue on guaifenesin with dextromethorphan as needed, Tessalon Perles as needed for cough -encouraged OOB to chair and he is ambulating to the toilet in the room continue lasix but changed to 40 mg IV once daily -Follow BMP (2) Respiratory failure: Plan: As above (3) LAURENT (acute kidney injury): Plan: Elevation of BUN to 76 from 23 and Cr of 3.63 from prior value of 1.12. Suspect dehydration contributing as well as underlying illness, Covid with hypoxia. He was administered 2L NS in the ER. Continue to hold lisinopril/HCTZ which likely compounded the issue Cr normal, making urine, placed cote, adequate UO, actually negative balance lytes normal Continue Lasix to promote negative fluid balance LAURENT is resolved Have since discontinued Cote catheter and is voiding on his own (4) Type 2 diabetes mellitus: Plan: profound hyperglycemia, glucose was 500 on 09/27 mild DKA, elevated beta hydroxy butyrate treated with insulin drip, gap closed, sugars better to low at times in the AMs transitioned to basal/bolus insulin Continues to have morning hypoglycemia Dexamethasone is now discontinued Pharmacy is managing (5) Metabolic acidosis: Plan: due to DKA, renal failure placed on sodium bicarb 75 plus 1/2 NSS at 80cc/hr, now stopped HCO3 is now normal, acidosis resolved (6) Hypertriglyceridemia: Plan: Chronic -Continue Atorvastatin (7) Hypertension: Plan: Chronic, blood pressures are controlled -Continue Metoprolol 50mg po daily -Continue to hold Lisinopril and HCTZ while giving Lasix continue lasix bid Plan: Ppx -continue Lovenox 0.5mg/kg bid Pepcid BID for GI prophylaxis Code - Full per discussion with patient Dispo -continued stay on PCU, hoping to get him home by early next week Admission and Anticipated Discharge Date Admission Date: September 25, 2021 Subjective Patient reports having a fairly good day. He was weaned off the Vapotherm and is now on 10 L of the wall high flow nasal cannula. Denies chest pain or shortness of breath. He is easily able to get to the bedside commode without dyspnea. He is moving his bowels, eating and drinking. Telemetry with normal sinus rhythm, rates in 80s to 100s Review of Systems Review of Systems: All systems reviewed & are unremarkable except as noted in HPI & below Physical Exam Constitutional: WD/WN, vitals as above + morbidly obese Eyes: + anicteric sclerae Neck: trachea midline, no thyromegaly Respiratory: normal respiratory effort Auscultation: lungs clear to auscultation bilaterally and + diminished lung sounds (right lower and middle lung maldonado) Cardiovascular: RRR, no murmur, no edema Right leg slightly larger than left leg-this is chronic for many years Chest (Breasts): Chest: normal inspection of chest Gastrointestinal (Abdomen): normal bowel sounds, soft, nontender, no hepatosplenomegaly Musculoskeletal: Extremities: extremities normal to inspection; no cyanosis and no clubbing Skin: no rashes, warm and dry Neurologic: moves all extremities and awake; no focal motor deficits Psychiatric: A+Ox3, euthymic affect Results & Data Results & Data ([facility]) Vital Signs (Past 12 Hours) Vital Signs Temp Pulse Pulse Resp BP Pulse Ox 10/06/21 15:05 36.8 C 89 20 119/86 92 10/06/21 11:27 36.9 C 103 H 20 109/63 89 L 10/06/21 07:18 37.3 C 98 H 20 122/75 90 10/06/21 05:19 108 H Laboratory Results 10/06/21 05:56 10/06/21 05:56 PG Care Time/CCT Total # of Minutes Spent Total Time Spent with Patient: Total time spent is greater than 50% in coordination of care (as documented) at patient's floor/unit and/or counseling patient: Coding Level of Care Code 92271 Subseq Hosp Care Lvl 3 Diagnoses COVID-19 U07.1 Respiratory failure J96.01 Chronicity: acute Respiratory failure complication: hypoxia LAURENT (acute kidney injury) N17.9 Type 2 diabetes mellitus E11.9 Metabolic acidosis E87.2 Hypertriglyceridemia E78.1 Hypertension I10 (1) Respiratory failure Chronicity: acute Respiratory failure complication: hypoxia Qualified Code(s): J96.01 - Acute respiratory failure with hypoxia
[2021-10-06] MEDS: guaiFENesin/DEXTROM SYRUP 200MG/20MG 10ML UDC PO PRN (20:25)
[2021-10-06] MEDS ORDERED: INSULIN ASPART PER UNIT SC SCH (21:00)
[2021-10-07] MEDS: INSULIN ASPART PER UNIT SC SCH ×6 (04:09→23:16)
[2021-10-07 07:09] LABS: BUN Creatinine Ratio 25.8 (10-20); Calcium 8.5 mg/dl (8.5-10.1); Creatinine Clr Calc Pharmacy 135.5 ml/min; Est GFR (African American) 110.3 ml/min; Est GFR (Non-African American) 95.2 ml/min; Magnesium 1.7 mg/dl (1.8-2.4); Potassium 4.3 mmol/L (3.5-5.1)
--- NOTE | 2021-10-07 07:43 | Hospitalist Progress Note ---
Date of Service October 07, 2021 Assessment & Plan (1) COVID-19: Plan: 56yo male with history of DM, HTN, HLP and Obesity (BMI of 46) presenting with acute hypoxic respiratory failure secondary to Covid-19 PNA. Patient is not vaccinated against Covid-19. He has been ill approximately 1 week prior to admission With Covid-19 pneumonia Chest x-ray with diffuse bilateral infiltrates requiring high flow oxygen, pt is resistant to proning Completed 10-day course of dexamethasone 6mg IV daily Remdesivir IV completed 5 days renal function better, started baricitinib, , increased dose to 4mg on 09/30 when renal function improved, last dose 10/11 Zithromax daily completed 5 days Wean off O2 as able to inflammatory markers down-CRP down to 2.2 Encourage incentive spirometry and flutter valve -Continue on guaifenesin with dextromethorphan as needed, Tessalon Perles as needed for cough -encouraged OOB to chair and he is ambulating to the toilet in the room continue lasix but changed to 40 mg IV once daily (2) Respiratory failure: Plan: As above (3) LAURENT (acute kidney injury): Plan: Elevation of BUN to 76 from 23 and Cr of 3.63 from prior value of 1.12. Suspect dehydration contributing as well as underlying illness, Covid with hypoxia. He was administered 2L NS in the ER. Continue to hold lisinopril/HCTZ which likely compounded the issue Cr normal, making urine, placed cote, adequate UO, actually negative balance lytes normal Continue Lasix to promote negative fluid balance LAURENT is resolved Have since discontinued Cote catheter and is voiding on his own (4) Type 2 diabetes mellitus: Plan: profound hyperglycemia, glucose was 500 on 09/27 mild DKA, elevated beta hydroxy butyrate treated with insulin drip, gap closed, sugars better to low at times in the AMs transitioned to basal/bolus insulin Dexamethasone is now discontinued Pharmacy is managing (5) Metabolic acidosis: Plan: due to DKA, renal failure was on sodium bicarb 75 plus 1/2 NSS at 80cc/hr, now stopped HCO3 is now normal, acidosis resolved (6) Hypertriglyceridemia: Plan: Chronic -Continue Atorvastatin (7) Hypertension: Plan: Chronic, blood pressures are controlled -Continue Metoprolol 50mg po daily -Continue to hold Lisinopril and HCTZ while giving Lasix continue lasix bid Plan: Ppx -continue Lovenox 0.5mg/kg bid Pepcid BID for GI prophylaxis Code - Full per discussion with patient Admission and Anticipated Discharge Date Admission Date: September 25, 2021 Subjective Patient just got back in bed sitting in the chair he is resistant to proning he does lay on his side. He is up to 15 L wall high flow. He is having no diarrhea has not lost his taste or smell he gets fairly dyspneic and tachypneic when moving about. Review of Systems Review of Systems: Moderate distress and fatigue no headache, no visual changes no speech or swallowing issues no chest pain, pressure or palpitations Continue shortness of breath, nonproductive cough or wheezes no abdominal pain, nausea or vomiting, no diarrhea no dysuria, hematuria or frequency no focal joint pain or swelling no back pain, CVA tenderness or radicular pain no bruising, bleeding or rashes no focal signs of weakness or numbness or altered sensation no complaints of anxiety or depression.. Physical Exam Physical Exam: The patient appeared mild to moderate respiratory distress Vital signs as documented. Head exam is normocephalic atraumatic Neck is without JVD, thyromegaly, or carotid bruits. Lungs are coarse bilaterally in all lung maldonado tachypnea Cardiac exam, Rhythm is regular.. No murmurs, rubs or gallops. Abdominal exam reveals normal bowel sounds, soft non tender, no masses Extremities are nonedematous and both pedal pulses are present Neurologic exam is alert and oriented, no focal loss of strength or sensation Skin is without bruises or rashes Psychologically is without concerns for anxiety or depression.. Results & Data Results & Data ([facility]) Vital Signs (Past 12 Hours) Vital Signs Temp Pulse Pulse Resp BP Pulse Ox 10/07/21 03:39 98.1 F 93 H 24 123/71 92 10/06/21 23:04 98.6 F 87 22 133/82 95 10/06/21 22:40 98 H PG Care Time/CCT Total # of Minutes Spent Total Time Spent with Patient: Total time spent is greater than 50% in coordination of care (as documented) at patient's floor/unit and/or counseling patient: Coding Level of Care Code 55282 Subseq Hosp Care Lvl 2 Diagnoses COVID-19 U07.1 Respiratory failure J96.01 Chronicity: acute Respiratory failure complication: hypoxia LAURENT (acute kidney injury) N17.9 Type 2 diabetes mellitus E11.9 Metabolic acidosis E87.2 Hypertriglyceridemia E78.1 Hypertension I10 (1) Respiratory failure Chronicity: acute Respiratory failure complication: hypoxia Qualified Code(s): J96.01 - Acute respiratory failure with hypoxia
[2021-10-07] MEDS: ENOXAPARIN 80 MG/0.8 ML SYR SQ SCH ×2 (08:24→20:54)
[2021-10-07] MEDS: ATORVASTATIN 20 MG TAB PO SCH (08:24)
[2021-10-07] MEDS: 4mg Daily x 14 days (eGFR >60 mL/min/1.73m2) PO SCH (08:24)
[2021-10-07] MEDS: FAMOTIDINE 20 MG TAB PO SCH ×2 (08:25→20:56)
[2021-10-07] MEDS: FUROSEMIDE 40 MG/4 ML VIAL IV SCH (08:25)
[2021-10-07] MEDS: METOPROLOL SUCC 50MG EXT REL TAB PO SCH (08:27)
[2021-10-07] MEDS: POTASSIUM CHLORIDE CRTAB 20 MEQ TABCR PO SCH ×2 (08:27→20:54)
[2021-10-07] MEDS: INSULIN GLARGINE SOLOSTAR 100 UNITS/ML 3 ML PEN SC SCH (08:42)
[2021-10-07] MEDS: guaiFENesin/DEXTROM SYRUP 200MG/20MG 10ML UDC PO PRN (20:54)
[2021-10-08] MEDS: INSULIN ASPART PER UNIT SC SCH ×5 (04:56→22:09)
[2021-10-08] MEDS: INSULIN GLARGINE SOLOSTAR 100 UNITS/ML 3 ML PEN SC SCH (09:45)
[2021-10-08] MEDS: 4mg Daily x 14 days (eGFR >60 mL/min/1.73m2) PO SCH (09:51)
[2021-10-08] MEDS: POTASSIUM CHLORIDE CRTAB 20 MEQ TABCR PO SCH ×2 (09:51→20:44)
[2021-10-08] MEDS: FUROSEMIDE 40 MG/4 ML VIAL IV SCH (09:51)
[2021-10-08] MEDS: BENZONATATE 100 MG CAPSULE PO PRN (09:52)
[2021-10-08] MEDS: ENOXAPARIN 80 MG/0.8 ML SYR SQ SCH ×2 (09:54→20:42)
[2021-10-08] MEDS: METOPROLOL SUCC 50MG EXT REL TAB PO SCH (09:54)
[2021-10-08] MEDS: ATORVASTATIN 20 MG TAB PO SCH (09:54)
[2021-10-08] MEDS: FAMOTIDINE 20 MG TAB PO SCH ×2 (09:55→20:43)
[2021-10-08] MEDS ORDERED: INSULIN ASPART PER UNIT SC SCH (11:30)
--- NOTE | 2021-10-08 14:22 | Hospitalist Progress Note ---
Date of Service October 08, 2021 Assessment & Plan (1) COVID-19: Plan: 56yo male with history of DM, HTN, HLP and Obesity (BMI of 46) presenting with acute hypoxic respiratory failure secondary to Covid-19 PNA. Patient is not vaccinated against Covid-19. He has been ill approximately 1 week prior to admission With Covid-19 pneumonia Chest x-ray with diffuse bilateral infiltrates requiring high flow oxygen, pt is resistant to proning Completed 10-day course of dexamethasone 6mg IV daily Remdesivir IV completed 5 days renal function better, started baricitinib, , increased dose to 4mg on 09/30 when renal function improved, last dose 10/11 Zithromax daily completed 5 days Wean off O2 as able to inflammatory markers down-CRP down to 2.2 Encourage incentive spirometry and flutter valve -Continue on guaifenesin with dextromethorphan as needed, Tessalon Perles as needed for cough -encouraged OOB to chair and he is ambulating to the toilet in the room continue lasix but changed to 40 mg IV once daily (2) Respiratory failure: Plan: As above (3) LAURENT (acute kidney injury): Plan: Elevation of BUN to 76 from 23 and Cr of 3.63 from prior value of 1.12. Suspect dehydration contributing as well as underlying illness, Covid with hypoxia. He was administered 2L NS in the ER. Continue to hold lisinopril/HCTZ which likely compounded the issue Cr normal, making urine, placed cote, adequate UO, actually negative balance lytes normal Continue Lasix to promote negative fluid balance LAURENT is resolved Have since discontinued Cote catheter and is voiding on his own (4) Type 2 diabetes mellitus: Plan: profound hyperglycemia, glucose was 500 on 09/27 mild DKA, elevated beta hydroxy butyrate treated with insulin drip, gap closed, sugars better to low at times in the AMs transitioned to basal/bolus insulin Dexamethasone is now discontinued Pharmacy is managing (5) Metabolic acidosis: Plan: due to DKA, renal failure was on sodium bicarb 75 plus 1/2 NSS at 80cc/hr, now stopped HCO3 is now normal, acidosis resolved (6) Hypertriglyceridemia: Plan: Chronic -Continue Atorvastatin (7) Hypertension: Plan: Chronic, blood pressures are controlled -Continue Metoprolol 50mg po daily -Continue to hold Lisinopril and HCTZ while giving Lasix continue lasix bid Plan: Ppx -continue Lovenox 0.5mg/kg bid Pepcid BID for GI prophylaxis Code - Full per discussion with patient Admission and Anticipated Discharge Date Admission Date: September 25, 2021 Subjective Patient sitting in the chair, oxygen is at 11 L , he is resistant to proning he does lay on his side. He is having no diarrhea has not lost his taste or smell he gets fairly dyspneic and tachypneic when moving about. Review of Systems Review of Systems: Moderate distress and fatigue no headache, no visual changes no speech or swallowing issues no chest pain, pressure or palpitations Continue shortness of breath, nonproductive cough or wheezes no abdominal pain, nausea or vomiting, no diarrhea no dysuria, hematuria or frequency no focal joint pain or swelling no back pain, CVA tenderness or radicular pain no bruising, bleeding or rashes no focal signs of weakness or numbness or altered sensation no complaints of anxiety or depression.. Physical Exam Physical Exam: The patient appeared mild to moderate respiratory distress Vital signs as documented. Head exam is normocephalic atraumatic Neck is without JVD, thyromegaly, or carotid bruits. Lungs are coarse bilaterally in all lung maldonado tachypnea Cardiac exam, Rhythm is regular.. No murmurs, rubs or gallops. Abdominal exam reveals normal bowel sounds, soft non tender, no masses Extremities are nonedematous and both pedal pulses are present Neurologic exam is alert and oriented, no focal loss of strength or sensation Skin is without bruises or rashes Psychologically is without concerns for anxiety or depression.. Results & Data Results & Data ([facility]) Vital Signs (Past 12 Hours) Vital Signs Temp Pulse Pulse Resp BP BP Pulse Ox 10/08/21 11:50 97.5 F L 99 H 20 105/72 91 10/08/21 10:15 85 10/08/21 07:15 97.7 F 85 22 135/77 93 10/08/21 03:00 98.4 F 89 20 139/76 90 PG Care Time/CCT Total # of Minutes Spent Total Time Spent with Patient: Total time spent is greater than 50% in coordination of care (as documented) at patient's floor/unit and/or counseling patient: Coding Level of Care Code 91152 Subseq Hosp Care Lvl 2 Diagnoses COVID-19 U07.1 Respiratory failure J96.01 Chronicity: acute Respiratory failure complication: hypoxia LAURENT (acute kidney injury) N17.9 Type 2 diabetes mellitus E11.9 Metabolic acidosis E87.2 Hypertriglyceridemia E78.1 Hypertension I10 (1) Respiratory failure Chronicity: acute Respiratory failure complication: hypoxia Qualified Code(s): J96.01 - Acute respiratory failure with hypoxia
--- NOTE | 2021-10-08 15:05 | Pharmacy Report ---
Pharmacy Glycemic Short Note 2 - Date of Service October 08, 2021 - Glycemic Short BSG Results (Last 24 hours): 10/07/21 10/07/21 10/07/21 16:13 20:06 23:15 POC Glucose 191 H 264 H 133 H 10/08/21 10/08/21 10/08/21 04:54 07:51 11:51 POC Glucose 120 H 135 H 276 H OUTPATIENT ANTIDIABETIC REGIMEN: * Glimepiride 4 mg daily * Metformin 1000 mg PO BID * HbA1c = 8.4% (08/21/21) ASSESSMENT: 10/08: * AM hypoglycemia improved, will continue with 20 units of lantus * Have tightened novolog parameters today, lunch BSG still elevated however per documentation, late breakfast therefore will continue to observe at current carb ratio. Will loosen correction factor for PM as patient has a tendency to drop overnight * Can consider small addition of NPH tomorrow if needed. 10/06: * BSGs well controlled yesterday throughout the day, however dropped into 60s around midnight last night. * Steroids have been discontinued. DM2 diet ordered. * Lantus 15 unit dose given this AM prior to discontinuation. Unclear what is contributing to overnight lows at this point as his BSGs tend to rise significantly throughout the day. NPH discontinued entirely today. No change to Lantus dose this AM. Basal insulin has been decreased by >75% the past 72 hours. Will need to reassess BSGs in AM and enter basal orders for tomorrow if appropriate. * Novolog CF/CR loosened from 07/25 to 15 this AM with an HS order for CF 20 in attempt to minimize further lows. Overnight checks ordered. 10/05: * Fasting BSG low again this AM, despite discontinuing HS Lantus yesterday. Prandial BSGs high into mid 200s yesterday. * Steroids have been discontinued. DM2 diet ordered and tolerating per documentation. * Attempt to begin transition to Lantus this AM, however total basal insulin dose will be decreased due to fasting low BSGs and steroid discontinuation. Will continue with smaller dose of AM again NPH today (50/50 split) with hopes to gain control of prandial BSGs in the event residual steroid effects persisting. * Novolog scale loosened today given AM BSG of 58mg/dL. Will do overnight checks tonight. 10/04: * Fasting BSGs consistently low. Patient had a hypoglycemic event this AM down 58mg/dL. Low fasting BSGs likely due to HS Lantus dose. Plan to discontinue HS Lantus. * BSGs rise throughout the day above goal, consistent with steroid induced hyperglycemia. NPH increased to 75 units yesterday to help with prandial c overage. Today was day #10 of dex; discontinued this afternoon. Anticipate insulin requirements will decrease. Plan for an additional dose of 10 units NPH this afternoon to help with evening/early overnight BSGs, and will transition back to AM Lantus as basal monotherapy tomorrow given steroids discontinued. * No change to Novolog. Added overnight checks with a CF of 15mg/dL given prone to AM hypoglycemia. 10/03: * BSGs increased throughout the day yesterday: [phone] mg/dL * Received 65 units NPH + 20 units Lantus + 61 units Novolog + 5 units IV insulin (KTQ=015 units) * Fasting BSG well controlled at 84 mg/dL this AM * No change to Lantus * Steroid-induced postprandial hyperglycemia continues to be a problem * Increased NPH and tightened CF/CR today PLAN FOR INPATIENT GLYCEMIC CONTROL: * Hold outpatient oral diabetes medications (glimepiride, metformin) * Basal insulin * Lantus 20 units qAM * Bolus insulin * NovoLog SQ ACHS and at 0000 + 0400 tonight * Goal range: 110-140 mg/dL, 140-180mg/dL overnight * Correction factor: 10 mg/dL/unit (HS CF, 15 g/dL/unit) * Carb ratio 1 unit per 2.5 grams CHOs consumed PLAN FOR DISCHARGE: * To be determined
[2021-10-08] MEDS: guaiFENesin/DEXTROM SYRUP 200MG/20MG 10ML UDC PO PRN (20:52)
[2021-10-09] MEDS ORDERED: INSULIN ASPART PER UNIT SC SCH (02:00)
[2021-10-09 06:26] LABS: Creatinine Clr Calc Pharmacy 140.2 ml/min; Est GFR (African American) 112.9 ml/min; Est GFR (Non-African American) 97.4 ml/min
[2021-10-09] MEDS: ATORVASTATIN 20 MG TAB PO SCH (08:22)
[2021-10-09] MEDS: METOPROLOL SUCC 50MG EXT REL TAB PO SCH (08:22)
[2021-10-09] MEDS: POTASSIUM CHLORIDE CRTAB 20 MEQ TABCR PO SCH ×2 (08:22→21:57)
[2021-10-09] MEDS: INSULIN GLARGINE SOLOSTAR 100 UNITS/ML 3 ML PEN SC SCH (08:24)
[2021-10-09] MEDS: FAMOTIDINE 20 MG TAB PO SCH ×2 (08:24→21:55)
[2021-10-09] MEDS: FUROSEMIDE 40 MG/4 ML VIAL IV SCH (08:24)
[2021-10-09] MEDS: ENOXAPARIN 80 MG/0.8 ML SYR SQ SCH ×2 (08:25→21:55)
[2021-10-09] MEDS: INSULIN ASPART PER UNIT SC SCH ×4 (08:27→21:56)
[2021-10-09] MEDS: 4mg Daily x 14 days (eGFR >60 mL/min/1.73m2) PO SCH (08:30)
[2021-10-09] MEDS: BENZONATATE 100 MG CAPSULE PO PRN (08:34)
--- NOTE | 2021-10-09 09:31 | Hospitalist Progress Note ---
Date of Service October 09, 2021 Assessment & Plan (1) COVID-19: Plan: 56yo male with history of DM, HTN, HLP and Obesity (BMI of 46) presenting with acute hypoxic respiratory failure secondary to Covid-19 PNA. Patient is not vaccinated against Covid-19. He has been ill approximately 1 week prior to admission With Covid-19 pneumonia repeat CXR today requiring high flow oxygen, pt is resistant to proning Completed 10-day course of dexamethasone 6mg IV daily Remdesivir IV completed 5 days renal function better, started baricitinib, , increased dose to 4mg on 09/30 when renal function improved, last dose 10/11 Zithromax daily completed 5 days Wean off O2 as able to, still on 15L inflammatory markers down-CRP was down to 2.2 when last checked Encourage incentive spirometry and flutter valve -Continue on guaifenesin with dextromethorphan as needed, Tessalon Perles as needed for cough -encouraged OOB to chair and he is ambulating to the toilet in the room continue lasix 40 mg IV once daily (2) Respiratory failure: Plan: As above (3) LAURENT (acute kidney injury): Plan: Elevation of BUN to 76 from 23 and Cr of 3.63 from prior value of 1.12. Suspect dehydration contributing as well as underlying illness, Covid with hypoxia. He was administered 2L NS in the ER. Continue to hold lisinopril/HCTZ which likely compounded the issue Cr normal, making urine, placed cote, adequate UO, actually negative balance lytes normal Continue Lasix to promote negative fluid balance LAURENT is resolved Have since discontinued Cote catheter and is voiding on his own (4) Type 2 diabetes mellitus: Plan: profound hyperglycemia, glucose was 500 on 09/27 mild DKA, elevated beta hydroxy butyrate treated with insulin drip, gap closed, sugars better to low at times in the AMs transitioned to basal/bolus insulin Dexamethasone is now discontinued Pharmacy is managing (5) Metabolic acidosis: Plan: due to DKA, renal failure was on sodium bicarb 75 plus 1/2 NSS at 80cc/hr, now stopped HCO3 is now normal, acidosis resolved (6) Hypertriglyceridemia: Plan: Chronic -Continue Atorvastatin (7) Hypertension: Plan: Chronic, blood pressures are controlled -Continue Metoprolol 50mg po daily -Continue to hold Lisinopril and HCTZ while giving Lasix continue lasix 40mg IV daily Plan: Ppx -continue Lovenox 0.5mg/kg bid Pepcid BID for GI prophylaxis Code - Full per discussion with patient Admission and Anticipated Discharge Date Admission Date: September 25, 2021 Subjective patient doing fine, sitting up in recliner c/o rash in right groin, it appears fungal, he says he gets it in the summer time when it is hot he is eating well, moving bowels, making urine reviewed chart from past week, last CXR was 09/30, will repeat Cr is stable he is on 15L, trying to wean down Review of Systems Review of Systems: All systems reviewed & are unremarkable except as noted in Subjective Respiratory: + cough, + dyspnea and + dyspnea on exertion; no sputum p roduction Physical Exam Physical Exam: General: well developed, obese male, comfortable, not ill appearing Neck: thick short neck, trachea midline, normal thyroid Lungs: clear to auscultation bilaterally, slightly tachypneic, no accessory muscle use, talking in full sentences Heart: regular S1 and S2, no murmur, peripheral pulses normal, capillary refill normal, no edema Abdomen: soft, NT, ND, + BS, no hepatomegaly, normal to percussion Extremities: normal in appearance, no cyanosis, no petechiae, strength is 5/5 bilaterally Neuro: awake, cooperative, moves all extremities, no focal motor deficits, CN II-XII intact, sensation in extremities intact, normal speech Skin: warm, dry, tinea cruris in groin Psych: Awake, alert oriented x 3, euthymic Results & Data Results & Data ([facility]) Vital Signs (Past 12 Hours) Vital Signs Temp Pulse Pulse Resp BP Pulse Ox 10/09/21 07:20 36.7 C 90 24 132/73 95 10/09/21 04:17 36.7 C 84 20 122/83 94 10/09/21 00:00 95 H 10/08/21 23:21 36.8 C 94 H 20 124/78 96 Laboratory Results Laboratory Results - last 24 hr 10/08/21 10/08/21 10/08/21 11:51 17:05 20:27 Creatinine Est Cr Clr Drug Dosing Est GFR ( Amer) Est GFR (Non-Af Amer) POC Glucose 276 H 240 H 202 H 10/09/21 10/09/21 10/09/21 02:33 02:34 05:39 Creatinine 0.88 Est Cr Clr Drug Dosing 140.2 Est GFR ( Amer) 112.9 Est GFR (Non-Af Amer) 97.4 POC Glucose 67 L* 71 10/09/21 08:00 Creatinine Est Cr Clr Drug Dosing Est GFR ( Amer) Est GFR (Non-Af Amer) POC Glucose 109 H Medications Administered Current Inpatient Medications Acetaminophen (Acetaminophen 325 Mg Tab) 650 mg PO Q4H PRN PRN Reason: Pain or Fever Stop: 10/26/21 01:36 Albuterol (Albuterol Hfa 8 Gm Inhaler) 2 puffs INH Q2R PRN PRN Reason: Shortness Of Breath Stop: 10/26/21 05:01 Atorvastatin Calcium (Atorvastatin 20 Mg Tab) 20 mg PO DAILY [facility] Stop: 10/26/21 08:59 Last Admin: 10/09/21 08:22 Dose: 20 mg Documented by: Baricitinib (4mg Daily X 14 Days (Egfr >60 Ml/Min/1.73m2)) 4 mg PO DAILY [facility]; Protocol Stop: 10/11/21 08:59 Last Admin: 10/09/21 08:30 Dose: 4 mg Documented by: Benzonatate (Benzonatate 100 Mg Capsule) 100 mg PO TID PRN PRN Reason: Cough Stop: 11/04/21 18:44 Last Admin: 10/09/21 08:34 Dose: 100 mg Documented by: Dextrose (Dextrose 50% 50 Ml Syringe) 25 - 50 ml IV UD PRN; Protocol PRN Reason: Hypoglycemia Protocol Stop: 10/26/21 01:36 Last Admin: 09/27/21 23:45 Dose: 25 ml Documented by: Enoxaparin Sodium (Enoxaparin 80 Mg/0.8 Ml Syr) 70 mg SQ Q12H [facility] Stop: 11/03/21 20:59 Last Admin: 10/09/21 08:25 Dose: 70 mg Documented by: Famotidine (Famotidine 20 Mg Tab) 20 mg PO BID [facility] Stop: 11/02/21 08:59 Last Admin: 10/09/21 08:24 Dose: 20 mg Documented by: Furosemide (Furosemide 40 Mg/4 Ml Vial) 40 mg IV QAM [facility] Stop: 11/06/21 08:59 Last Admin: 10/09/21 08:24 Dose: 40 mg Documented by: Glucagon (Glucagon For Inj 1 Mg Vial) 1 mg SQ UD PRN; Protocol PRN Reason: Hypoglycemia Protocol Stop: 10/26/21 01:36 Glucose (Glucose 10 Tabs/Tube) 4 - 8 tabs PO UD PRN; Protocol PRN Reason: Hypoglycemia Protocol Stop: 10/26/21 01:36 Glucose (Glucose 40% Gel 15 Gm Tube) 15 - 30 gm PO UD PRN; Protocol PRN Reason: Hypoglycemia Protocol Stop: 10/26/21 01:36 Guaifenesin/Dextromethorphan (Guaifenesin/Dextrom Syrup 200mg/20mg 10ml Udc) 10 ml PO Q6H PRN PRN Reason: Cough Stop: 11/04/21 18:44 Last Admin: 10/08/21 20:52 Dose: 10 ml Documented by: Insulin Aspart (Insulin Aspart Per Unit) 0 units SC AC [facility] Stop: 11/07/21 07:29 Last Admin: 10/09/21 08:27 Dose: 22 units Documented by: Insulin Aspart (Insulin Aspart Per Unit) 0 units SC [facility] Stop: 11/07/21 20:59 Last Admin: 10/08/21 22:09 Dose: 5 units Documented by: Insulin Glargine (Insulin Glargine Solostar 100 Units/Ml 3 Ml Pen) 15 units SC QAM [facility] Stop: 11/08/21 08:59 Last Admin: 10/09/21 08:24 Dose: 15 units Documented by: Metoprolol Succinate (Metoprolol Succ 50mg Ext Rel Tab) 50 mg PO DAILY [facility] Stop: 10/26/21 08:59 Last Admin: 10/09/21 08:22 Dose: 50 mg Documented by: Miscellaneous (Carbohydrates For Hypoglycemia ) 15 - 30 gm PO UD PRN PRN Reason: Hypoglycemia Protocol Stop: 10/26/21 01:36 Last Admin: 10/05/21 23:58 Dose: 15 gm Documented by: Miscellaneous Information (Pharmacy Glycemic Mgmt Consult) 1 ea N/A UD PRN PRN Reason: Consult Stop: 10/26/21 07:52 Ondansetron HCl (Ondansetron Inj 2 Mg/Ml 2 Ml Vial) 4 mg IV Q6H PRN PRN Reason: Nausea Stop: 10/26/21 01:36 Potassium Chloride (Potassium Chloride Crtab 20 Meq Tabcr) 20 meq PO BID [facility] Stop: 10/30/21 08:59 Last Admin: 10/09/21 08:22 Dose: 20 meq Documented by: PG Care Time/CCT Total # of Minutes Spent Total Time Spent with Patient: Total time spent is greater than 50% in coordination of care (as documented) at patient's floor/unit and/or counseling patient: Coding Level of Care Code 20506 Subseq Hosp Care Lvl 2 Diagnoses COVID-19 U07.1 Respiratory failure J96.01 Chronicity: acute Respiratory failure complication: hypoxia LAURENT (acute kidney injury) N17.9 Type 2 diabetes mellitus E11.9 Metabolic acidosis E87.2 Hypertriglyceridemia E78.1 Hypertension I10 (1) Respiratory failure Chronicity: acute Respiratory failure complication: hypoxia Qualified Code(s): J96.01 - Acute respiratory failure with hypoxia
[2021-10-09] MEDS ORDERED: NYSTATIN POWDER 15GM BTL EXT PRN (09:33)
--- NOTE | 2021-10-09 11:14 | XRay Report ---
SINGLE VIEW CHEST CLINICAL HISTORY: Hypoxia. Covid pneumonia. FINDINGS: An AP, portable, upright chest radiograph is compared to study dated 09/30/2021. The cardiom ediastinal silhouette is unremarkable. Extensive/diffuse airspace consolidation is again seen through out both lungs. No large pleural effusion or pneumothorax is identified. There is chronic posttraumat ic deformity of the right clavicle. IMPRESSION: Extensive/diffuse airspace consolidation is again seen throughout both lungs. This is sim ilar to the 09/30/2021 examination. ACT 112: Negative or not required by law. Electronically signed by: Ortega Pena M.D. 10/09/2021 11:12 AM
--- NOTE | 2021-10-09 13:28 | Pharmacy Report ---
Pharmacy Glycemic Short Note 2 - Date of Service October 09, 2021 - Glycemic Short BSG Results (Last 24 hours): 10/08/21 10/08/21 10/09/21 17:05 20:27 02:33 POC Glucose 240 H 202 H 67 L* 10/09/21 10/09/21 10/09/21 02:34 08:00 12:00 POC Glucose 71 109 H 214 H OUTPATIENT ANTIDIABETIC REGIMEN: * Glimepiride 4 mg daily * Metformin 1000 mg PO BID * HbA1c = 8.4% (08/21/21) ASSESSMENT: 10/09 * Pt has received 99 units of insulin over the past 24hrs * 20 units of basal with Lantus * 79 units of bolus with NovoLog * BSGs yesterday were 097-158-288-202 mg/dL. Fasting today is 109 mg/dL. * Fasting continues to trend downwards so reduce basal insulin by 20% * Tighten Novolog as BSGs trend upwards throughout the day. Loose coverage at bedtime to prevent overcorrection. 10/08: * AM hypoglycemia improved, will continue with 20 units of lantus * Have tightened novolog parameters today, lunch BSG still elevated however per documentation, late breakfast therefore will continue to observe at current carb ratio. Will loosen correction factor for PM as patient has a tendency to drop overnight * Can consider small addition of NPH tomorrow if needed. 10/06: * BSGs well controlled yesterday throughout the day, however dropped into 60s around midnight last night. * Steroids have been discontinued. DM2 diet ordered. * Lantus 15 unit dose given this AM prior to discontinuation. Unclear what is contributing to overnight lows at this point as his BSGs tend to rise significantly throughout the day. NPH discontinued entirely today. No change to Lantus dose this AM. Basal insulin has been decreased by >75% the past 72 hours. Will need to reassess BSGs in AM and enter basal orders for tomorrow if appropriate. * Novolog CF/CR loosened from 07/25 to 06/03 this AM with an HS order for CF 20 in attempt to minimize further lows. Overnight checks ordered. 10/05: * Fasting BSG low again this AM, despite discontinuing HS Lantus yesterday. Prandial BSGs high into mid 200s yesterday. * Steroids have been discontinued. DM2 diet ordered and tolerating per documentation. * Attempt to begin transition to Lantus this AM, however total basal insulin dose will be decreased due to fasting low BSGs and steroid discontinuation. Will continue with smaller dose of AM again NPH today (50/50 split) with hopes to gain control of prandial BSGs in the event residual steroid effects persisting. * Novolog scale loosened today given AM BSG of 58mg/dL. Will do overnight checks tonight. 10/04: * Fasting BSGs consistently low. Patient had a hypoglycemic event this AM down 58mg/dL. Low fasting BSGs likely due to HS Lantus dose. Plan to discontinue HS Lantus. * BSGs rise throughout the day above goal, consistent with steroid induced hyperglycemia. NPH increased to 75 units yesterday to help with prandial coverage. Today was day #10 of dex; discontinued this afternoon. Anticipate insulin requirements will decrease. Plan for an additional dose of 10 units NPH this afternoon to help with evening/early overnight BSGs, and will transition back to AM Lantus as basal monotherapy tomorrow given steroids discontinued. * No change to Novolog. Added overnight checks with a CF of 15mg/dL given prone to AM hypoglycemia. 10/03: * BSGs increased throughout the day yesterday: [phone] mg/dL * Received 65 units NPH + 20 units Lantus + 61 units Novolog + 5 units IV insulin (JJG=238 units) * Fasting BSG well controlled at 84 mg/dL this AM * No change to Lantus * Steroid-induced postprandial hyperglycemia continues to be a problem * Increased NPH and tightened CF/CR today PLAN FOR INPATIENT GLYCEMIC CONTROL: * Hold outpatient oral diabetes medications (glimepiride, metformin) * Basal insulin * Lantus 15 units qAM * Bolus insulin * NovoLog SQ ACHS and at 0000 + 0400 tonight * Goal range: 110-140 mg/dL, 140-180mg/dL overnight * Correction factor: 8 mg/dL/unit (HS CF, 25 g/dL/unit) * Carb ratio 1 unit per 1.5 grams CHOs consumed PLAN FOR DISCHARGE: * To be determined
[2021-10-09] MEDS: guaiFENesin/DEXTROM SYRUP 200MG/20MG 10ML UDC PO PRN (21:54)
[2021-10-10] MEDS: guaiFENesin/DEXTROM SYRUP 200MG/20MG 10ML UDC PO PRN (06:44)
[2021-10-10 08:02] LABS: Hematocrit (blood only) 35.5 % (42-52); Mean Corpuscular Hemoglobin 28.4 pg (25-34); Mean Corpuscular Hgb Conc 33.8 g/dL (32-36); Mean Corpuscular Volume 84.1 fL (80-100); Mean Platelet Volume 9.1 fL (7.4-10.4); Platelet Count 172 K/uL (130-400); RDW Coefficient of Variation 13.5 % (11.5-14.5); RDW Standard Deviation 40.8 fL (36.4-46.3); Red Blood Count 4.22 M/uL (4.7-6.1); White Blood Count 8.46 K/uL (4.8-10.8)
[2021-10-10 08:36] LABS: BUN Creatinine Ratio 28.6 (10-20); Calcium 8.8 mg/dl (8.5-10.1); Creatinine Clr Calc Pharmacy 132.4 ml/min; Est GFR (African American) 108.9 ml/min; Magnesium 2.1 mg/dl (1.8-2.4); Potassium 4.6 mmol/L (3.5-5.1)
[2021-10-10] MEDS: ENOXAPARIN 80 MG/0.8 ML SYR SQ SCH ×2 (08:57→21:13)
[2021-10-10] MEDS: METOPROLOL SUCC 50MG EXT REL TAB PO SCH (08:58)
[2021-10-10] MEDS: FUROSEMIDE 40 MG/4 ML VIAL IV SCH (08:58)
[2021-10-10] MEDS: FAMOTIDINE 20 MG TAB PO SCH ×2 (08:58→21:13)
[2021-10-10] MEDS: ATORVASTATIN 20 MG TAB PO SCH (09:00)
[2021-10-10] MEDS: POTASSIUM CHLORIDE CRTAB 20 MEQ TABCR PO SCH ×2 (09:00→21:13)
[2021-10-10] MEDS: INSULIN ASPART PER UNIT SC SCH ×4 (09:20→20:41)
[2021-10-10] MEDS: INSULIN GLARGINE SOLOSTAR 100 UNITS/ML 3 ML PEN SC SCH (09:43)
[2021-10-10] MEDS: 4mg Daily x 14 days (eGFR >60 mL/min/1.73m2) PO SCH (09:48)
--- NOTE | 2021-10-10 09:48 | Hospitalist Progress Note ---
Date of Service October 10, 2021 Assessment & Plan (1) COVID-19: Plan: 56yo male with history of DM, HTN, HLP and Obesity (BMI of 46) presenting with acute hypoxic respiratory failure secondary to Covid-19 PNA. Patient is not vaccinated against Covid-19. He has been ill approximately 1 week prior to admission With Covid-19 pneumonia repeat CXR 10/09 shows persistent bilateral infiltrates, no significant change requiring high flow oxygen, pt is resistant to proning Completed 10-day course of dexamethasone 6mg IV daily Remdesivir IV completed 5 days renal function better, started baricitinib, , increased dose to 4mg on 09/30 when renal function improved, last dose 10/11 Zithromax daily completed 5 days Wean off O2 as able, down a little at 14L inflammatory markers down-CRP was down to 2.2 when last checked Encourage incentive spirometry and flutter valve -Continue on guaifenesin with dextromethorphan as needed, Tessalon Perles as needed for cough -encouraged OOB to chair and he is ambulating to the toilet in the room continue lasix 40 mg IV once daily, Cr and K are stable (2) Respiratory failure: Plan: As above down to 13L today (3) LAURENT (acute kidney injury): Plan: Cr of 3.63 on admission Suspected dehydration contributing as well as underlying illness, Covid with hypoxia Cr normalized quickly with IV fluids adequate UO, actually negative balance K normal, Cr is 0.92 today Continue Lasix 40mg IV daily to promote negative fluid balance Have since discontinued Alonso catheter and is voiding on his own, but needed straight cath this morning continue to monitor voiding add Flomax 0.4mg daily (4) Type 2 diabetes mellitus: Plan: profound hyperglycemia, glucose was 500 on 09/27 mild DKA on admission, elevated beta hydroxy butyrate treated with insulin drip, gap closed, sugars better to low at times in the AMs transitioned to basal/bolus insulin Dexamethasone is now discontinued Pharmacy is managing (5) Metabolic acidosis: Plan: due to DKA, renal failure resolved quickly (6) Hypertriglyceridemia: Plan: Chronic -Continue Atorvastatin (7) Hypertension: Plan: Chronic, blood pressures are controlled -Continue Metoprolol 50mg po daily -Continue to hold Lisinopril and HCTZ while giving Lasix continue lasix 40mg IV daily Plan: Ppx -continue Lovenox 0.5mg/kg bid Pepcid BID for GI prophylaxis Code - Full per discussion with patient Admission and Anticipated Discharge Date Admission Date: September 25, 2021 Subjective reviewed labs, Cr and K are stable, WBC and Hb are stable CXR from 10/09 shows persistent bilateral infiltrates, not much change from 9 days prior patient continues to feel okay, but has coughing spells he is on 15L, 96%, turned him down to 13L and saturations are stable encouraged him to try to lay prone because it could help him oxygenate Review of Systems Review of Systems: All systems reviewed & are unremarkable except as noted in Subjective Respiratory: + cough, + dyspnea and + dyspnea on exertion; no sputum production Physical Exam Physical Exam: General: well developed, obese male, comfortable, not ill appearing Neck: thick short neck, trachea midline, normal thyroid Lungs: clear to auscultation bilaterally, slightly tachypneic, no accessory muscle use, talking in full sentences Heart: regular S1 and S2, no murmur, peripheral pulses normal, capillary refill normal, no edema Abdomen: soft, NT, ND, + BS, no hepatomegaly, normal to percussion Extremities: normal in appearance, no cyanosis, no petechiae, strength is 5/5 bilaterally Neuro: awake, cooperative, moves all extremities, no focal motor deficits, CN II-XII intact, sensation in extremities intact, normal speech Skin: warm, dry, tinea cruris in groin Psych: Awake, alert oriented x 3, euthymic Results & Data Results & Data ([facility]) Vital Signs (Past 12 Hours) Vital Signs Temp Pulse Pulse Resp BP Pulse Ox 10/10/21 07:37 36.5 C 94 H 18 132/69 92 10/10/21 04:13 36.5 C 73 20 143/82 H 93 10/10/21 00:00 97 H 10/09/21 22:42 37.1 C 99 H 20 133/86 92 Laboratory Results Laboratory Results - last 24 hr 10/09/21 10/09/21 10/09/21 12:00 16:53 21:45 WBC RBC Hgb Hct MCV MCH MCHC RDW Std Deviation RDW Coeff of Val Plt Count MPV Sodium Potassium Chloride Carbon Dioxide Anion Gap BUN Creatinine Est Cr Clr Drug Dosing Est GFR ( Amer) Est GFR (Non-Af Amer) BUN/Creatinine Ratio Glucose POC Glucose 214 H 202 H 166 H Calcium Magnesium 10/10/21 10/10/21 10/10/21 07:36 07:45 07:45 WBC 8.46 RBC 4.22 L Hgb 12.0 L Hct 35.5 L MCV 84.1 MCH 28.4 MCHC 33.8 RDW Std Deviation 40.8 RDW Coeff of Val 13.5 Plt Count 172 MPV 9.1 Sodium 134 L Potassium 4.6 Chloride 99 Carbon Dioxide 30 Anion Gap 6.0 BUN 26 H Creatinine 0.92 Est Cr Clr Drug Dosing 132.4 Est GFR ( Amer) 108.9 Est GFR (Non-Af Amer) 94.0 BUN/Creatinine Ratio 28.6 H Glucose 131 H POC Glucose 117 H Calcium 8.8 Magnesium 2.1 Medications Administered Current Inpatient Medications Acetaminophen (Acetaminophen 325 Mg Tab) 650 mg PO Q4H PRN PRN Reason: Pain or Fever Stop: 10/26/21 01:36 Albuterol (Albuterol Hfa 8 Gm Inhaler) 2 puffs INH Q2R PRN PRN Reason: Shortness Of Breath Stop: 10/26/21 05:01 Atorvastatin Calcium (Atorvastatin 20 Mg Tab) 20 mg PO DAILY GALINA Stop: 10/26/21 08:59 Last Admin: 10/10/21 09:00 Dose: 20 mg Documented by: Baricitinib (4mg Daily X 14 Days (Egfr >60 Ml/Min/1.73m2)) 4 mg PO DAILY GALINA; Protocol Stop: 10/11/21 08:59 Last Admin: 10/09/21 08:30 Dose: 4 mg Documented by: Benzonatate (Benzonatate 100 Mg Capsule) 100 mg PO TID PRN PRN Reason: Cough Stop: 11/04/21 18:44 Last Admin: 10/09/21 08:34 Dose: 100 mg Documented by: Dextrose (Dextrose 50% 50 Ml Syringe) 25 - 50 ml IV UD PRN; Protocol PRN Reason: Hypoglycemia Protocol Stop: 10/26/21 01:36 Last Admin: 09/27/21 23:45 Dose: 25 ml Documented by: Enoxaparin Sodium (Enoxaparin 80 Mg/0.8 Ml Syr) 70 mg SQ Q12H GALINA Stop: 11/03/21 20:59 Last Admin: 10/10/21 08:57 Dose: 70 mg Documented by: Famotidine (Famotidine 20 Mg Tab) 20 mg PO BID [facility] Stop: 11/02/21 08:59 Last Admin: 10/10/21 08:58 Dose: 20 mg Documented by: Furosemide (Furosemide 40 Mg/4 Ml Vial) 40 mg IV QAM [facility] Stop: 11/06/21 08:59 Last Admin: 10/10/21 08:58 Dose: 40 mg Documented by: Glucagon (Glucagon For Inj 1 Mg Vial) 1 mg SQ UD PRN; Protocol PRN Reason: Hypoglycemia Protocol Stop: 10/26/21 01:36 Glucose (Glucose 10 Tabs/Tube) 4 - 8 tabs PO UD PRN; Protocol PRN Reason: Hypoglycemia Protocol Stop: 10/26/21 01:36 Glucose (Glucose 40% Gel 15 Gm Tube) 15 - 30 gm PO UD PRN; Protocol PRN Reason: Hypoglycemia Protocol Stop: 10/26/21 01:36 Guaifenesin/Dextromethorphan (Guaifenesin/Dextrom Syrup 200mg/20mg 10ml Udc) 10 ml PO Q6H PRN PRN Reason: Cough Stop: 11/04/21 18:44 Last Admin: 10/10/21 06:44 Dose: 10 ml Documented by: Insulin Aspart (Insulin Aspart Per Unit) 0 units SC AC [facility] Stop: 11/07/21 07:29 Last Admin: 10/09/21 17:36 Dose: 66 units Documented by: Insulin Aspart (Insulin Aspart Per Unit) 0 units SC HS [facility] Stop: 11/07/21 20:59 Last Admin: 10/09/21 21:56 Dose: 2 units Documented by: Insulin Glargine (Insulin Glargine Solostar 100 Units/Ml 3 Ml Pen) 15 units SC QAM [facility] Stop: 11/08/21 08:59 Last Admin: 10/09/21 08:24 Dose: 15 units Documented by: Metoprolol Succinate (Metoprolol Succ 50mg Ext Rel Tab) 50 mg PO DAILY [facility] Stop: 10/26/21 08:59 Last Admin: 10/10/21 08:58 Dose: 50 mg Documented by: Miscellaneous (Carbohydrates For Hypoglycemia ) 15 - 30 gm PO UD PRN PRN Reason: Hypoglycemia Protocol Stop: 10/26/21 01:36 Last Admin: 10/05/21 23:58 Dose: 15 gm Documented by: Miscellaneous Information (Pharmacy Glycemic Mgmt Consult) 1 ea N/A UD PRN PRN Reason: Consult Stop: 10/26/21 07:52 Nystatin (Nystatin Powder 15gm Btl) 1 appln EXT BID PRN PRN Reason: Affected Skin Folds Stop: 11/08/21 09:32 Ondansetron HCl (Ondansetron Inj 2 Mg/Ml 2 Ml Vial) 4 mg IV Q6H PRN PRN Reason: Nausea Stop: 10/26/21 01:36 Potassium Chloride (Potassium Chloride Crtab 20 Meq Tabcr) 20 meq PO BID [facility] Stop: 10/30/21 08:59 Last Admin: 10/10/21 09:00 Dose: 20 meq Documented by: PG Care Time/CCT Total # of Minutes Spent Total Time Spent with Patient: Total time spent is greater than 50% in coordination of care (as documented) at patient's floor/unit and/or counseling patient: Coding Level of Care Code 93890 Subseq Hosp Care Lvl 2 Diagnoses COVID-19 U07.1 Respiratory failure J96.01 Chronicity: acute Respiratory failure complication: hypoxia LAURENT (acute kidney injury) N17.9 Type 2 diabetes mellitus E11.9 Metabolic acidosis E87.2 Hypertriglyceridemia E78.1 Hypertension I10 (1) Respiratory failure Chronicity: acute Respiratory failure complication: hypoxia Qualified Code(s): J96.01 - Acute respiratory failure with hypoxia
[2021-10-10] MEDS: TAMSULOSIN HCL 0.4 MG CAP PO SCH (12:42)
[2021-10-10] MEDS: CARBOHYDRATES FOR HYPOGLYCEMIA PO PRN ×2 (20:13→23:30)
[2021-10-11] MEDS ORDERED: INSULIN ASPART PER UNIT SC ONE
[2021-10-11] MEDS: FUROSEMIDE 40 MG/4 ML VIAL IV SCH (08:01)
[2021-10-11] MEDS: POTASSIUM CHLORIDE CRTAB 20 MEQ TABCR PO SCH ×2 (08:01→20:29)
[2021-10-11] MEDS: FAMOTIDINE 20 MG TAB PO SCH ×2 (08:02→20:29)
[2021-10-11] MEDS: TAMSULOSIN HCL 0.4 MG CAP PO SCH (08:02)
[2021-10-11] MEDS: ATORVASTATIN 20 MG TAB PO SCH (08:02)
[2021-10-11] MEDS: METOPROLOL SUCC 50MG EXT REL TAB PO SCH (08:02)
[2021-10-11] MEDS: ENOXAPARIN 80 MG/0.8 ML SYR SQ SCH ×2 (08:02→20:29)
[2021-10-11] MEDS: INSULIN ASPART PER UNIT SC SCH ×4 (08:12→20:29)
[2021-10-11] MEDS: INSULIN HUMAN NPH SC SCH (08:14)
--- NOTE | 2021-10-11 10:27 | Pharmacy Report ---
Pharmacy Glycemic Short Note 2 - Date of Service October 11, 2021 - Glycemic Short BSG Results (Last 24 hours): 10/10/21 10/10/21 10/10/21 11:53 16:56 20:11 POC Glucose 261 H 147 H 63 L* 10/10/21 10/10/21 10/10/21 20:29 23:21 23:50 POC Glucose 78 53 L* 89 10/11/21 10/11/21 04:02 07:27 POC Glucose 148 H 186 H OUTPATIENT ANTIDIABETIC REGIMEN: * Glimepiride 4 mg daily * Metformin 1000 mg PO BID * HbA1c = 8.4% (08/21/21) ASSESSMENT: 10/11 * Pt has received 157 units of insulin over the past 24hrs * 15 units of basal with Lantus * 142 units of bolus with NovoLog * BSGs [phone]/78-53/89-148-186 mg/dl * Pt with LOW BSG last evening and overnight. Most likely d/t aggressive CF/CR ordered. * Pt regimen is very heavily weighted towards bolus insulin. AM fasting BSG in range with minimal Lantus but post-prandial BSGs significantly elevated despite large, aggressive NovoLog dosing. * Will trial switching Lantus to NPH for basal insulin (not for steroid induced hyperglycemia Pt seems to have adequate endogenous insulin secretion from HS to AM so a 24 hr basal insulin may not be needed. The 4-5hr peak in NPH will help cover post-prandial hyperglycemia at lunch time. 10/09 * Pt has received 99 units of insulin over the past 24hrs * 20 units of basal with Lantus * 79 units of bolus with NovoLog * BSGs yesterday were [phone] mg/dL. Fasting today is 109 mg/dL. * Fasting continues to trend downwards so reduce basal insulin by 20% * Tighten Novolog as BSGs trend upwards throughout the day. Loose coverage at bedtime to prevent overcorrection. 10/08: * AM hypoglycemia improved, will continue with 20 units of lantus * Have tightened novolog parameters today, lunch BSG still elevated however per documentation, late breakfast therefore will continue to observe at current carb ratio. Will loosen correction factor for PM as patient has a tendency to drop overnight * Can consider small addition of NPH tomorrow if needed. 10/06: * BSGs well controlled yesterday throughout the day, however dropped into 60s around midnight last night. * Steroids have been discontinued. DM2 diet ordered. * Lantus 15 unit dose given this AM prior to discontinuation. Unclear what is c ontributing to overnight lows at this point as his BSGs tend to rise significantly throughout the day. NPH discontinued entirely today. No change to Lantus dose this AM. Basal insulin has been decreased by >75% the past 72 hours. Will need to reassess BSGs in AM and enter basal orders for tomorrow if appropriate. * Novolog CF/CR loosened from 07/25 to 06/03 this AM with an HS order for CF 20 in attempt to minimize further lows. Overnight checks ordered. 10/05: * Fasting BSG low again this AM, despite discontinuing HS Lantus yesterday. Prandial BSGs high into mid 200s yesterday. * Steroids have been discontinued. DM2 diet ordered and tolerating per documentation. * Attempt to begin transition to Lantus this AM, however total basal insulin dose will be decreased due to fasting low BSGs and steroid discontinuation. Will continue with smaller dose of AM again NPH today (50/50 split) with hopes to gain control of prandial BSGs in the event residual steroid effects persisting. * Novolog scale loosened today given AM BSG of 58mg/dL. Will do overnight checks tonight. 10/04: * Fasting BSGs consistently low. Patient had a hypoglycemic event this AM down 58mg/dL. Low fasting BSGs likely due to HS Lantus dose. Plan to discontinue HS Lantus. * BSGs rise throughout the day above goal, consistent with steroid induced hyperglycemia. NPH increased to 75 units yesterday to help with prandial coverage. Today was day #10 of dex; discontinued this afternoon. Anticipate insulin requirements will decrease. Plan for an additional dose of 10 units NPH this afternoon to help with evening/early overnight BSGs, and will transition back to AM Lantus as basal monotherapy tomorrow given steroids discontinued. * No change to Novolog. Added overnight checks with a CF of 15mg/dL given prone to AM hypoglycemia. 10/03: * BSGs increased throughout the day yesterday: [phone] mg/dL * Received 65 units NPH + 20 units Lantus + 61 units Novolog + 5 units IV insulin (GDI=586 units) * Fasting BSG well controlled at 84 mg/dL this AM * No change to Lantus * Steroid-induced postprandial hyperglycemia continues to be a problem * Increased NPH and tightened CF/CR today PLAN FOR INPATIENT GLYCEMIC CONTROL: * Hold outpatient oral diabetes medications (glimepiride, metformin) * Basal insulin * DC Lantus Lantus * Start NPH 15 units qAM (not for steroid induced hyperglycemia) * Bolus insulin: loosen parameters * NovoLog SQ ACHS and at 0000 + 0400 tonight * Goal range: 110-140 mg/dL, 140-180mg/dL overnight * Correction factor: 10 mg/dL/unit (HS CF, 25 g/dL/unit) * Carb ratio 1 unit per 2 grams CHOs consumed PLAN FOR DISCHARGE: * To be determined
--- NOTE | 2021-10-11 10:34 | Hospitalist Progress Note ---
Date of Service October 11, 2021 Assessment & Plan (1) COVID-19: Plan: 56yo male with history of DM, HTN, HLP and Obesity (BMI of 46) presenting with acute hypoxic respiratory failure secondary to Covid-19 PNA. Patient is not vaccinated against Covid-19. He has been ill approximately 1 week prior to admission With Covid-19 pneumonia repeat CXR 10/09 shows persistent bilateral infiltrates, no significant change remains on 14L and he is tachycardic which is new, no chest pain check CTA chest to rule out PE and look at lung parenchyma Completed 10-day course of dexamethasone 6mg IV daily Remdesivir IV completed 5 days renal function better, started baricitinib, , increased dose to 4mg on 09/30 when renal function improved, last dose 10/11 (today) Zithromax daily completed 5 days inflammatory markers down-CRP was down to 2.2 when last checked, repeat tomorrow Encourage incentive spirometry and flutter valve -Continue on guaifenesin with dextromethorphan as needed, Tessalon Perles as needed for cough -encouraged OOB to chair and he is ambulating to the toilet in the room continue lasix 40 mg IV once daily, Cr and K are stable, making a lot of urine (2) Respiratory failure: Plan: As above remains on 14L today check CTA chest (3) LAURENT (acute kidney injury): Plan: Cr of 3.63 on admission Suspected dehydration contributing as well as underlying illness, Covid with hypoxia Cr normalized quickly with IV fluids adequate UO, actually negative balance K normal, Cr is 0.92 on 10/10 Continue Lasix 40mg IV daily to promote negative fluid balance, making a lot of urine every morning Have since discontinued Alonso catheter and is voiding on his own, but needed straight cath on 10/10 continue to monitor voiding add Flomax 0.4mg daily (4) Type 2 diabetes mellitus: Plan: profound hyperglycemia, glucose was 500 on 09/27 mild DKA on admission, elevated beta hydroxy butyrate treated with insulin drip, gap closed, sugars better to low at times in the AMs transitioned to basal/bolus insulin Dexamethasone is now discontinued Pharmacy is managing, had some hypoglycemia last night will try NPH instead of Lantus for basal dosing see if that helps (5) Metabolic acidosis: Plan: due to DKA, renal failure resolved quickly (6) Hypertriglyceridemia: Plan: Chronic -Continue Atorvastatin (7) Hypertension: Plan: Chronic, blood pressures are controlled -Continue Metoprolol 50mg po daily -Continue to hold Lisinopril and HCTZ while giving Lasix continue lasix 40mg IV daily Plan: Ppx -continue Lovenox 0.5mg/kg bid Pepcid BID for GI prophylaxis Code - Full per discussion with patient Admission and Anticipated Discharge Date Admission Date: September 25, 2021 Subjective patient doing fine, sitting up in a chair he said he laid prone for a few hours last night, didn't do great with it he is eating great, had a BM first thing this morning, making a lot of urine with Lasix 40mg IV still on 14L, saturations 90-91% HR in the 110's, denies any chest pain, had a CTA on admission and has been on Lovenox discussed getting CT chest to rule out PE but also to look at lung parenchyma, he agrees will check labs tomorrow Review of Systems Review of Systems: All systems reviewed & are unremarkable except as noted in Subjective Respiratory: + cough, + dyspnea and + dyspnea on exertion Cardiovascular: no chest pain Physical Exam Physical Exam: General: well developed, obese male, comfortable, not ill appearing Neck: thick short neck, trachea midline, normal thyroid Lungs: clear to auscultation bilaterally, slightly tachypneic, no accessory muscle use, talking in full sentences Heart: tachycardic, S1 and S2, no murmur, peripheral pulses normal, capillary refill normal, no edema Abdomen: soft, NT, ND, + BS, no hepatomegaly, normal to percussion Extremities: normal in appearance, no cyanosis, no petechiae, strength is 5/5 bilaterally Neuro: awake, cooperative, moves all extremities, no focal motor deficits, CN II-XII intact, sensation in extremities intact, normal speech Skin: warm, dry, tinea cruris in groin Psych: Awake, alert oriented x 3, euthymic Results & Data Results & Data ([facility]) Vital Signs (Past 12 Hours) Vital Signs Temp Pulse Resp BP BP Pulse Ox 10/11/21 08:00 36.5 C 97 H 24 149/79 H 90 10/11/21 03:59 36.5 C 99 H 23 113/94 92 10/10/21 22:36 36.8 C 86 22 102/53 L 93 Laboratory Results Laboratory Results - last 24 hr 10/10/21 10/10/21 10/10/21 11:53 16:56 20:11 POC Glucose 261 H 147 H 63 L* 10/10/21 10/10/21 10/10/21 20:29 23:21 23:50 POC Glucose 78 53 L* 89 10/11/21 10/11/21 04:02 07:27 POC Glucose 148 H 186 H Medications Administered Current Inpatient Medications Acetaminophen (Acetaminophen 325 Mg Tab) 650 mg PO Q4H PRN PRN Reason: Pain or Fever Stop: 10/26/21 01:36 Albuterol (Albuterol Hfa 8 Gm Inhaler) 2 puffs INH Q2R PRN PRN Reason: Shortness Of Breath Stop: 10/26/21 05:01 Atorvastatin Calcium (Atorvastatin 20 Mg Tab) 20 mg PO DAILY [facility] Stop: 10/26/21 08:59 Last Admin: 10/11/21 08:02 Dose: 20 mg Documented by: Benzonatate (Benzonatate 100 Mg Capsule) 100 mg PO TID PRN PRN Reason: Cough Stop: 11/04/21 18:44 Last Admin: 10/09/21 08:34 Dose: 100 mg Documented by: Dextrose (Dextrose 50% 50 Ml Syringe) 25 - 50 ml IV UD PRN; Protocol PRN Reason: Hypoglycemia Protocol Stop: 10/26/21 01:36 Last Admin: 09/27/21 23:45 Dose: 25 ml Documented by: Enoxaparin Sodium (Enoxaparin 80 Mg/0.8 Ml Syr) 70 mg SQ Q12H [facility] Stop: 11/03/21 20:59 Last Admin: 10/11/21 08:02 Dose: 70 mg Documented by: Famotidine (Famotidine 20 Mg Tab) 20 mg PO BID [facility] Stop: 11/02/21 08:59 Last Admin: 10/11/21 08:02 Dose: 20 mg Documented by: Furosemide (Furosemide 40 Mg/4 Ml Vial) 40 mg IV QAM [facility] Stop: 11/06/21 08:59 Last Admin: 10/11/21 08:01 Dose: 40 mg Documented by: Glucagon (Glucagon For Inj 1 Mg Vial) 1 mg SQ UD PRN; Protocol PRN Reason: Hypoglycemia Protocol Stop: 10/26/21 01:36 Glucose (Glucose 10 Tabs/Tube) 4 - 8 tabs PO UD PRN; Protocol PRN Reason: Hypoglycemia Protocol Stop: 10/26/21 01:36 Glucose (Glucose 40% Gel 15 Gm Tube) 15 - 30 gm PO UD PRN; Protocol PRN Reason: Hypoglycemia Protocol Stop: 10/26/21 01:36 Guaifenesin/Codeine Phosphate (Guaifenesin/Codeine 200mg/20mg 10ml Udc) 10 ml PO Q6H PRN PRN Reason: Cough Stop: 11/09/21 09:57 Last Admin: 10/10/21 12:56 Dose: 10 ml Documented by: Insulin Aspart (Insulin Aspart Per Unit) 0 units SC AC [facility] Stop: 11/07/21 07:29 Last Admin: 10/11/21 08:12 Dose: 32 units Documented by: Insulin Aspart (Insulin Aspart Per Unit) 0 units SC HS [facility] Stop: 11/07/21 20:59 Last Admin: 10/10/21 20:41 Dose: Not Given Documented by: Insulin Human NPH (Insulin Human Nph) 15 units SC DAILY [facility] Stop: 11/10/21 08:59 Last Admin: 10/11/21 08:14 Dose: 15 units Documented by: Metoprolol Succinate (Metoprolol Succ 50mg Ext Rel Tab) 50 mg PO DAILY [facility] Stop: 10/26/21 08:59 Last Admin: 10/11/21 08:02 Dose: 50 mg Documented by: Miscellaneous (Carbohydrates For Hypoglycemia ) 15 - 30 gm PO UD PRN PRN Reason: Hypoglycemia Protocol Stop: 10/26/21 01:36 Last Admin: 10/10/21 23:30 Dose: 30 gm Documented by: Miscellaneous Information (Pharmacy Glycemic Mgmt Consult) 1 ea N/A UD PRN PRN Reason: Consult Stop: 10/26/21 07:52 Nystatin (Nystatin Powder 15gm Btl) 1 appln EXT BID PRN PRN Reason: Affected Skin Folds Stop: 11/08/21 09:32 Ondansetron HCl (Ondansetron Inj 2 Mg/Ml 2 Ml Vial) 4 mg IV Q6H PRN PRN Reason: Nausea Stop: 10/26/21 01:36 Potassium Chloride (Potassium Chloride Crtab 20 Meq Tabcr) 20 meq PO BID [facility] Stop: 10/30/21 08:59 Last Admin: 10/11/21 08:01 Dose: 20 meq Documented by: Tamsulosin HCl (Tamsulosin Hcl 0.4 Mg Cap) 0.4 mg PO QAM [facility] Stop: 11/09/21 09:59 Last Admin: 10/11/21 08:02 Dose: 0.4 mg Documented by: PG Care Time/CCT Total # of Minutes Spent Total Time Spent with Patient: Total time spent is greater than 50% in coordination of care (as documented) at patient's floor/unit and/or counseling patient: Coding Level of Care Code 55956 Subseq Hosp Care Lvl 3 Diagnoses COVID-19 U07.1 Respiratory failure J96.01 Chronicity: acute Respiratory failure complication: hypoxia LAURENT (acute kidney injury) N17.9 Type 2 diabetes mellitus E11.9 Metabolic acidosis E87.2 Hypertriglyceridemia E78.1 Hypertension I10 (1) Respiratory failure Chronicity: acute Respiratory failure complication: hypoxia Qualified Code(s): J96.01 - Acute respiratory failure with hypoxia
[2021-10-11] MEDS ORDERED: OPTIRAY 320 125ml IV ONE (11:24)
--- NOTE | 2021-10-11 11:53 | CT Scan Report ---
CT angio chest PE protocol CLINICAL HISTORY: PE Covid pneumonia. TECHNIQUE: Multidetector row helical CT of the chest was performed. Coronal and sagittal reformations were obtained. Coronal and sagittal MIPS were obtained from the axial data set and were submitted fo r review. Automated dose lowering techniques and/or adjustment according to patient size were utiliz ed for this exam. Comparison: None available at the time of this dictation. FINDINGS: Lungs and pleura: Extensive consolidative opacities are seen throughout the bilateral lungs. Heart and pericardium: Heart size is normal. No pericardial effusion. Vessels: No evidence of pulmonary embolism. The pulmonary trunk measures 32 mm in diameter. Mediastinum and giovanna: Unremarkable. Chest wall and lower neck: Unremarkable. Abdomen: Unremarkable. Bones: Well-corticated fragmentation of the middle third of the right clavicle is seen. Degenerative changes are seen in the thoracic spine. IMPRESSION: 1. No evidence of pulmonary embolism. 2. Findings are compatible with Covid pneumonia. 3. Well-corticated fragmentation of the right mid third of the clavicle likely represents chronic fr acture. Clinical correlation is recommended. ACT 112: Negative or not required by law. Electronically signed by: Shin Owens M.D. 10/11/2021 11:52 AM
[2021-10-12] MEDS: CARBOHYDRATES FOR HYPOGLYCEMIA PO PRN (00:19)
[2021-10-12 06:07] LABS: Hematocrit (blood only) 33.1 % (42-52); Hemoglobin 11.3 g/dL (14.0-18.0); Mean Corpuscular Hemoglobin 28.8 pg (25-34); Mean Corpuscular Hgb Conc 34.1 g/dL (32-36); Mean Corpuscular Volume 84.2 fL (80-100); Mean Platelet Volume 9.4 fL (7.4-10.4); Platelet Count 184 K/uL (130-400); RDW Coefficient of Variation 13.5 % (11.5-14.5); RDW Standard Deviation 41.8 fL (36.4-46.3); Red Blood Count 3.93 M/uL (4.7-6.1); White Blood Count 6.28 K/uL (4.8-10.8)
[2021-10-12 06:37] LABS: BUN Creatinine Ratio 21.6 (10-20); C Reactive Protein 4.34 mg/dl (0-0.29); Calcium 8.8 mg/dl (8.5-10.1); Creatinine Clr Calc Pharmacy 131.4 ml/min; Est GFR (African American) 107.5 ml/min; Est GFR (Non-African American) 92.7 ml/min; Potassium 4.4 mmol/L (3.5-5.1)
[2021-10-12] MEDS: FAMOTIDINE 20 MG TAB PO SCH ×2 (08:14→21:21)
[2021-10-12] MEDS: TAMSULOSIN HCL 0.4 MG CAP PO SCH (08:14)
[2021-10-12] MEDS: METOPROLOL SUCC 50MG EXT REL TAB PO SCH (08:14)
[2021-10-12] MEDS: ATORVASTATIN 20 MG TAB PO SCH (08:14)
[2021-10-12] MEDS: POTASSIUM CHLORIDE CRTAB 20 MEQ TABCR PO SCH ×2 (08:14→21:21)
[2021-10-12] MEDS: FUROSEMIDE 40 MG/4 ML VIAL IV SCH ×2 (08:15→18:24)
[2021-10-12] MEDS: INSULIN ASPART PER UNIT SC SCH ×4 (08:16→21:36)
[2021-10-12] MEDS: ENOXAPARIN 80 MG/0.8 ML SYR SQ SCH ×2 (08:17→21:20)
[2021-10-12] MEDS: INSULIN HUMAN NPH SC SCH (08:17)
--- NOTE | 2021-10-12 09:47 | Hospitalist Progress Note ---
Date of Service October 12, 2021 Assessment & Plan (1) COVID-19: Plan: 56yo male with history of DM, HTN, HLP and Obesity (BMI of 46) presenting with acute hypoxic respiratory failure secondary to Covid-19 PNA. Patient is not vaccinated against Covid-19. He has been ill approximately 1 week prior to admission With Covid-19 pneumonia repeat CXR 10/09 shows persistent bilateral infiltrates, no significant change down to 8L yesterday, up to 15L this morning, hopefully that was from exertion, work to get him back down CTA chest on 10/11: no PE, persistent bilateral viral pneumonia Completed 10-day course of dexamethasone 6mg IV daily, CRP went back up slightly to 4, will add back dexamethasone 10mg IV x 5 days then 6mg x 5 days Remdesivir IV completed 5 days renal function better, started baricitinib, , increased dose to 4mg on 09/30 when renal function improved, completed 14 days on 10/11 Zithromax daily completed 5 days inflammatory markers down-CRP was down to 2.2, now up slightly to 4, resume dexamethasone at 10mg x 5 days to try to knock back inflammation Encourage incentive spirometry and flutter valve -Continue on guaifenesin with dextromethorphan as needed, Tessalon Perles as needed for cough -encouraged OOB to chair and he is ambulating to the toilet in the room continue lasix 40 mg IV but increase to BID as his renal function is stable, K is 4.4 (2) Respiratory failure: Plan: As above remains on 15L today but was down to 8L yesterday try to work him back down CTA chest on 10/11: no PE, just viral pneumonia (3) LAURENT (acute kidney injury): Plan: Cr of 3.63 on admission Suspected dehydration contributing as well as underlying illness, Covid with hypoxia Cr normalized quickly with IV fluids adequate UO, actually negative balance K normal at 4.4, Cr is 0.9 Continue Lasix 40mg IV but increase to BID for today, follow UO and BMP in morning Have since discontinued Alonso catheter and is voiding on his own, but needed straight cath on 10/10 continue to monitor voiding add Flomax 0.4mg daily (4) Type 2 diabetes mellitus: Plan: profound hyperglycemia, glucose was 500 on 09/27 mild DKA on admission, elevated beta hydroxy butyrate treated with insulin drip, gap closed, sugars better to low at times in the AMs transitioned to basal/bolus insulin discuss with pharmacy adding back dexamethasone, will adjust NPH and Novolog (5) Metabolic acidosis: Plan: due to DKA, renal failure resolved quickly (6) Hypertriglyceridemia: Plan: Chronic -Continue Atorvastatin (7) Hypertension: Plan: Chronic, blood pressures are controlled -Continue Metoprolol 50mg po daily -Continue to hold Lisinopril and HCTZ while giving Lasix continue lasix 40mg IV BID Plan: Ppx -continue Lovenox 0.5mg/kg bid Pepcid BID for GI prophylaxis Code - Full per discussion with patient Admission and Anticipated Discharge Date Admission Date: September 25, 2021 Subjective patient tried the CPAP last night for a few hours, it really dried him out told him we don't need to do it again c/o dry nose, some bleeding, having to blow his nose eating well, making urine, had a BM yesterday and likely will have one today labs today, K is 4.4, Cr 0.9, BUN 20, CRP 4.3 needed to increase oxygen to 15L from 8L when he got up into the chair, work to get him back down again Review of Systems Review of Systems: All systems reviewed & are unremarkable except as noted in Subjective Ear, Nose, Mouth, Throat: + nasal congestion, + nasal discharge and + epistaxis Respiratory: + cough, + dyspnea and + dyspnea on exertion Physical Exam Physical Exam: General: well developed, obese male, comfortable, not ill appearing Neck: thick short neck, trachea midline, normal thyroid Lungs: clear to auscultation bilaterally, slightly tachypneic, no accessory muscle use, talking in full sentences Heart: tachycardic, S1 and S2, no murmur, peripheral pulses normal, capillary refill normal, no edema Abdomen: soft, NT, ND, + BS, no hepatomegaly, normal to percussion Extremities: normal in appearance, no cyanosis, no petechiae, strength is 5/5 bilaterally Neuro: awake, cooperative, moves all extremities, no focal motor deficits, CN II-XII intact, sensation in extremities intact, normal speech Skin: warm, dry, tinea cruris in groin Psych: Awake, alert oriented x 3, euthymic Results & Data Results & Data ([facility]) Vital Signs (Past 12 Hours) Vital Signs Temp Pulse Pulse Resp BP Pulse Ox 10/12/21 07:33 36.4 C L 97 H 18 124/79 94 10/12/21 03:51 37.0 C 86 21 158/81 H 91 10/12/21 03:35 16 97 10/12/21 01:00 91 H 21 92 10/11/21 23:15 36.8 C 98 H 20 126/76 96 Laboratory Results Laboratory Results - last 24 hr 10/11/21 10/11/21 10/11/21 11:47 16:12 19:53 WBC RBC Hgb Hct MCV MCH MCHC RDW Std Deviation RDW Coeff of Val Plt Count MPV Sodium Potassium Chloride Carbon Dioxide Anion Gap BUN Creatinine Est Cr Clr Drug Dosing Est GFR ( Amer) Est GFR (Non-Af Amer) BUN/Creatinine Ratio Glucose POC Glucose 262 H 216 H 317 H* Calcium C-Reactive Protein 10/12/21 10/12/21 10/12/21 00:17 00:35 05:50 WBC 6.28 RBC 3.93 L Hgb 11.3 L Hct 33.1 L MCV 84.2 MCH 28.8 MCHC 34.1 RDW Std Deviation 41.8 RDW Coeff of Val 13.5 Plt Count 184 MPV 9.4 Sodium Potassium Chloride Carbon Dioxide Anion Gap BUN Creatinine Est Cr Clr Drug Dosing Est GFR ( Amer) Est GFR (Non-Af Amer) BUN/Creatinine Ratio Glucose POC Glucose 63 L* 76 Calcium C-Reactive Protein 10/12/21 10/12/21 05:50 07:51 WBC RBC Hgb Hct MCV MCH MCHC RDW Std Deviation RDW Coeff of Val Plt Count MPV Sodium 133 L Potassium 4.4 Chloride 98 Carbon Dioxide 29 Anion Gap 6.0 BUN 20 H Creatinine 0.93 Est Cr Clr Drug Dosing 131.4 Est GFR ( Amer) 107.5 Est GFR (Non-Af Amer) 92.7 BUN/Creatinine Ratio 21.6 H Glucose 149 H POC Glucose 188 H Calcium 8.8 C-Reactive Protein 4.34 H Medications Administered Current Inpatient Medications Acetaminophen (Acetaminophen 325 Mg Tab) 650 mg PO Q4H PRN PRN Reason: Pain or Fever Stop: 10/26/21 01:36 Albuterol (Albuterol Hfa 8 Gm Inhaler) 2 puffs INH Q2R PRN PRN Reason: Shortness Of Breath Stop: 10/26/21 05:01 Atorvastatin Calcium (Atorvastatin 20 Mg Tab) 20 mg PO DAILY [facility] Stop: 10/26/21 08:59 Last Admin: 10/12/21 08:14 Dose: 20 mg Documented by: Benzonatate (Benzonatate 100 Mg Capsule) 100 mg PO TID PRN PRN Reason: Cough Stop: 11/04/21 18:44 Last Admin: 10/09/21 08:34 Dose: 100 mg Documented by: Dextrose (Dextrose 50% 50 Ml Syringe) 25 - 50 ml IV UD PRN; Protocol PRN Reason: Hypoglycemia Protocol Stop: 10/26/21 01:36 Last Admin: 09/27/21 23:45 Dose: 25 ml Documented by: Enoxaparin Sodium (Enoxaparin 80 Mg/0.8 Ml Syr) 70 mg SQ Q12H [facility] Stop: 11/03/21 20:59 Last Admin: 10/12/21 08:17 Dose: 70 mg Documented by: Famotidine (Famotidine 20 Mg Tab) 20 mg PO BID [facility] Stop: 11/02/21 08:59 Last Admin: 10/12/21 08:14 Dose: 20 mg Documented by: Furosemide (Furosemide 40 Mg/4 Ml Vial) 40 mg IV BID17 [facility] Stop: 11/11/21 08:59 Last Admin: 10/12/21 08:15 Dose: 40 mg Documented by: Glucagon (Glucagon For Inj 1 Mg Vial) 1 mg SQ UD PRN; Protocol PRN Reason: Hypoglycemia Protocol Stop: 10/26/21 01:36 Glucose (Glucose 10 Tabs/Tube) 4 - 8 tabs PO UD PRN; Protocol PRN Reason: Hypoglycemia Protocol Stop: 10/26/21 01:36 Glucose (Glucose 40% Gel 15 Gm Tube) 15 - 30 gm PO UD PRN; Protocol PRN Reason: Hypoglycemia Protocol Stop: 10/26/21 01:36 Guaifenesin/Codeine Phosphate (Guaifenesin/Codeine 200mg/20mg 10ml Udc) 10 ml PO Q6H PRN PRN Reason: Cough Stop: 11/09/21 09:57 Last Admin: 10/11/21 20:29 Dose: 10 ml Documented by: Insulin Aspart (Insulin Aspart Per Unit) 0 units SC AC [facility] Stop: 11/07/21 07:29 Last Admin: 10/12/21 08:16 Dose: 32 units Documented by: Insulin Aspart (Insulin Aspart Per Unit) 0 units SC HS [facility] Stop: 11/07/21 20:59 Last Admin: 10/11/21 20:29 Dose: 8 units Documented by: Insulin Human NPH (Insulin Human Nph) 15 units SC DAILY [facility] Stop: 11/10/21 08:59 Last Admin: 10/12/21 08:17 Dose: 15 units Documented by: Metoprolol Succinate (Metoprolol Succ 50mg Ext Rel Tab) 50 mg PO DAILY [facility] Stop: 10/26/21 08:59 Last Admin: 10/12/21 08:14 Dose: 50 mg Documented by: Miscellaneous (Carbohydrates For Hypoglycemia ) 15 - 30 gm PO UD PRN PRN Reason: Hypoglycemia Protocol Stop: 10/26/21 01:36 Last Admin: 10/12/21 00:19 Dose: 15 gm Documented by: Miscellaneous Information (Pharmacy Glycemic Mgmt Consult) 1 ea N/A UD PRN PRN Reason: Consult Stop: 10/26/21 07:52 Nystatin (Nystatin Powder 15gm Btl) 1 appln EXT BID PRN PRN Reason: Affected Skin Folds Stop: 11/08/21 09:32 Ondansetron HCl (Ondansetron Inj 2 Mg/Ml 2 Ml Vial) 4 mg IV Q6H PRN PRN Reason: Nausea Stop: 10/26/21 01:36 Potassium Chloride (Potassium Chloride Crtab 20 Meq Tabcr) 20 meq PO BID [facility] Stop: 10/30/21 08:59 Last Admin: 10/12/21 08:14 Dose: 20 meq Documented by: Tamsulosin HCl (Tamsulosin Hcl 0.4 Mg Cap) 0.4 mg PO QAM [facility] Stop: 11/09/21 09:59 Last Admin: 10/12/21 08:14 Dose: 0.4 mg Documented by: PG Care Time/CCT Total # of Minutes Spent Total Time Spent with Patient: Total time spent is greater than 50% in coordination of care (as documented) at patient's floor/unit and/or counseling patient: Coding Level of Care Code 34579 Subseq Hosp Care Lvl 3 Diagnoses COVID-19 U07.1 Respiratory failure J96.01 Chronicity: acute Respiratory failure complication: hypoxia LAURENT (acute kidney injury) N17.9 Type 2 diabetes mellitus E11.9 Metabolic acidosis E87.2 Hypertriglyceridemia E78.1 Hypertension I10 (1) Respiratory failure Chronicity: acute Respiratory failure complication: hypoxia Qualified Code(s): J96.01 - Acute respiratory failure with hypoxia
[2021-10-12] MEDS ORDERED: SODIUM CHLORIDE 0.65% NA SOLN 45 ML (OCEAN) PRN (09:52)
[2021-10-12] MEDS ORDERED: OXYMETAZOLINE 0.05% 30 ML BTL NAE ONE (09:53)
[2021-10-12] MEDS ORDERED: DEXAMETHASONE SOD INJ 4 MG/ML VIAL IV SCH (10:00)
[2021-10-12] MEDS ORDERED: INSULIN HUMAN NPH SC ONE (10:30)
--- NOTE | 2021-10-12 10:35 | Pharmacy Report ---
Pharmacy Glycemic Short Note 2 - Date of Service October 12, 2021 - Glycemic Short BSG Results (Last 24 hours): 10/11/21 10/11/21 10/11/21 11:47 16:12 19:53 Glucose POC Glucose 262 H 216 H 317 H* 10/12/21 10/12/21 10/12/21 00:17 00:35 05:50 Glucose 149 H POC Glucose 63 L* 76 10/12/21 07:51 Glucose POC Glucose 188 H OUTPATIENT ANTIDIABETIC REGIMEN: * Glimepiride 4 mg daily * Metformin 1000 mg PO BID * HbA1c = 8.4% (08/21/21) ASSESSMENT: 10/12 * Resumed dexamethasone: 10 mg IV x5 days (1st dose this AM) with anticipated dexamethasone 6 mg IV x5 days following (per Dr. Phillips) * Another overnight hypoglycemic event noted last night. Will still increase NPH with steroids resuming, but will not quite increase back to previous regimen while on same dose of dexamethasone earlier this admission. Will adjust based on trend in overnight/AM BSG's * Will tighten Novolog CHO ratio given post-prandial elevations yesterday and steroids resuming today * Will maintain loose HS check and increase goal range in an attempt to avoid further overnight hypoglycemia 10/11 * Pt has received 157 units of insulin over the past 24hrs * 15 units of basal with Lantus * 142 units of bolus with NovoLog * BSGs [id number]/78-53/89-148-186 mg/dl * Pt with LOW BSG last evening and overnight. Most likely d/t aggressive CF/CR ordered. * Pt regimen is very heavily weighted towards bolus insulin. AM fasting BSG in range with minimal Lantus but post-prandial BSGs significantly elevated despite large, aggressive NovoLog dosing. * Will trial switching Lantus to NPH for basal insulin (not for steroid induced hyperglycemia Pt seems to have adequate endogenous insulin secretion from HS to AM so a 24 hr basal insulin may not be needed. The 4-5hr peak in NPH will help cover post-prandial hyperglycemia at lunch time. 10/09 * Pt has received 99 units of insulin over the past 24hrs * 20 units of basal with Lantus * 79 units of bolus with NovoLog * BSGs yesterday were [phone] mg/dL. Fasting today is 109 mg/dL. * Fasting continues to trend downwards so reduce basal insulin by 20% * Tighten Novolog as BSGs trend upwards throughout the day. Loose coverage at bedtime to prevent overcorrection. PLAN FOR INPATIENT GLYCEMIC CONTROL: * Hold outpatient oral diabetes medications (glimepiride, metformin) * Basal insulin - increase * Increase NPH 15 units x1 plus 30 units x1, now that steroids are resuming * Bolus insulin - tighten CHO ratio * NovoLog SQ ACHS and at 0200 tonight * Goal range: 110-140 mg/dL (140-180 mg/dL HS and overnight) * Correction factor: 10 mg/dL/unit AC (25 g/dL/unit HS and overnight) * Carb ratio 1 unit per 1.7 grams CHOs consumed (none HS and overnight) PLAN FOR DISCHARGE: * To be determined
[2021-10-12] MEDS: MUPIROCIN 2% OINT 22 GM TUBE EXT SCH ×2 (11:08→21:22)
[2021-10-12] MEDS: dexAMETHasone 10 MG in SYRINGE 0 ML IV SCH (11:09)
[2021-10-12] MEDS ORDERED: INSULIN HUMAN REGULAR PER UNIT 5 UNITS in SYRINGE 4.95 ML IV ONE (21:00)
[2021-10-13] MEDS: INSULIN ASPART PER UNIT SC SCH ×6 (00:14→21:28)
[2021-10-13] MEDS ORDERED: INSULIN ASPART PER UNIT SC ONE (02:00)
--- NOTE | 2021-10-13 08:36 | Hospitalist Progress Note ---
Date of Service October 13, 2021 Assessment & Plan (1) COVID-19: Plan: 56yo male with history of DM, HTN, HLP and Obesity (BMI of 46) presenting with acute hypoxic respiratory failure secondary to Covid-19 PNA. Patient is not vaccinated against Covid-19. He has been ill approximately 1 week prior to admission With Covid-19 pneumonia repeat CXR 10/09 shows persistent bilateral infiltrates, no significant change down to 6L yesterday evening and all night desaturated getting up to the chair this morning, recovering but on 13L, try to titrate back down CTA chest on 10/11: no PE, persistent bilateral viral pneumonia Completed 10-day course of dexamethasone 6mg IV daily, CRP went back up slightly to 4, will add back dexamethasone 10mg IV x 5 days then 6mg x 5 days, day 2 of 10mg today Remdesivir IV completed 5 days renal function better, started baricitinib, , increased dose to 4mg on 09/30 when renal function improved, completed 14 days on 10/11 Zithromax daily completed 5 days inflammatory markers down-CRP was down to 2.2, now up slightly to 4 on 10/12, resumed dexamethasone at 10mg x 5 days to try to knock back inflammation Encourage incentive spirometry and flutter valve -Continue on guaifenesin with dextromethorphan as needed, Tessalon Perles as needed for cough -encouraged OOB to chair and he is ambulating to the toilet in the room continue lasix 40 mg IV but increase to BID as his renal function is stable, K is 4.4, made a lot more urine yesterday give Afrin for nasal congestion today (2) Respiratory failure: Plan: As above stable on 6L all night, has to go up to 15L getting into the chair but eventually recovers try to work him back down CTA chest on 10/11: no PE, just viral pneumonia (3) LAURENT (acute kidney injury): Plan: Cr of 3.63 on admission Suspected dehydration contributing as well as underlying illness, Covid with hypoxia Cr normalized quickly with IV fluids adequate UO, actually negative balance K normal at 4.4, Cr is 0.9 Continue Lasix 40mg IV BID, check BMP tomorrow Have since discontinued Alonso catheter and is voiding on his own, but needed straight cath on 10/10 continue to monitor voiding add Flomax 0.4mg daily (4) Type 2 diabetes mellitus: Plan: profound hyperglycemia, glucose was 500 on 09/27 mild DKA on admission, elevated beta hydroxy butyrate treated with insulin drip, gap closed, sugars better to low at times in the AMs transitioned to basal/bolus insulin sugars jumped to 400s with dexamethasone 10mg IV will adjust Basal and Novolog, pharmacy managing (5) Metabolic acidosis: Plan: due to DKA, renal failure resolved quickly (6) Hypertriglyceridemia: Plan: Chronic -Continue Atorvastatin (7) Hypertension: Plan: Chronic, blood pressures are controlled -Continue Metoprolol 50mg po daily, he is tachycardic, will increase to 75mg qAM, extra 25mg this morning -Continue to hold Lisinopril and HCTZ while giving Lasix continue lasix 40mg IV BID Plan: Ppx -continue Lovenox 0.5mg/kg bid Pepcid BID for GI prophylaxis Code - Full per discussion with patient Admission and Anticipated Discharge Date Admission Date: September 25, 2021 Subjective sugars really jumped with the Dexamethasone 10mg IV yesterday morning pharmacy will adjust with NPH and Novolog he was down to 6L NC all night which is big improvement he desaturated this morning getting into the chair, taking some time to recover patient is really down, discouraged that he is still here, starting to think he won't make it I encouraged him to stay strong, COVID is hell, and the worst part is being alone will try to get him out of negative pressure so that family can visit, he appreciates that eating well, made a lot of urine yesterday with the extra Lasix, will continue that today nose is less congested with the saline spray and the Afrin yesterday, will give another shot of Afrin today Review of Systems Review of Systems: All systems reviewed & are unremarkable except as noted in Subjective Ear, Nose, Mouth, Throat: + nasal congestion Respiratory: + cough, + dyspnea and + dyspnea on exertion; no sputum production Physical Exam Physical Exam: General: well developed, obese male, comfortable, not ill appearing Neck: thick short neck, trachea midline, normal thyroid Lungs: clear to auscultation bilaterally, slightly tachypneic, no accessory muscle use, talking in full sentences Heart: tachycardic, S1 and S2, no murmur, peripheral pulses normal, capillary refill normal, no edema Abdomen: soft, NT, ND, + BS, no hepatomegaly, normal to percussion Extremities: normal in appearance, no cyanosis, no petechiae, strength is 5/5 bilaterally Neuro: awake, cooperative, moves all extremities, no focal motor deficits, CN II-XII intact, sensation in extremities intact, normal speech Skin: warm, dry, tinea cruris in groin Psych: Awake, alert oriented x 3, euthymic Results & Data Results & Data ([facility]) Vital Signs (Past 12 Hours) Vital Signs Temp Pulse Pulse Resp BP Pulse Ox 10/13/21 07:22 84 10/13/21 04:02 37.0 C 58 L 19 142/99 H 95 10/13/21 00:05 85 10/12/21 23:35 36.8 C 97 H 21 117/90 91 Laboratory Results Laboratory Results - last 24 hr 10/12/21 10/12/21 10/12/21 11:30 16:54 20:28 POC Glucose 245 H 355 H* 406 H* 10/12/21 10/13/21 10/13/21 20:29 00:08 04:11 POC Glucose 400 H* 232 H 142 H 10/13/21 08:00 POC Glucose 157 H Medications Administered Current Inpatient Medications Acetaminophen (Acetaminophen 325 Mg Tab) 650 mg PO Q4H PRN PRN Reason: Pain or Fever Stop: 10/26/21 01:36 Albuterol (Albuterol Hfa 8 Gm Inhaler) 2 puffs INH Q2R PRN PRN Reason: Shortness Of Breath Stop: 10/26/21 05:01 Atorvastatin Calcium (Atorvastatin 20 Mg Tab) 20 mg PO DAILY [facility] Stop: 10/26/21 08:59 Last Admin: 10/12/21 08:14 Dose: 20 mg Documented by: Benzonatate (Benzonatate 100 Mg Capsule) 100 mg PO TID PRN PRN Reason: Cough Stop: 11/04/21 18:44 Last Admin: 10/09/21 08:34 Dose: 100 mg Documented by: Dextrose (Dextrose 50% 50 Ml Syringe) 25 - 50 ml IV UD PRN; Protocol PRN Reason: Hypoglycemia Protocol Stop: 10/26/21 01:36 Last Admin: 09/27/21 23:45 Dose: 25 ml Documented by: Enoxaparin Sodium (Enoxaparin 80 Mg/0.8 Ml Syr) 70 mg SQ Q12H GALINA Stop: 11/03/21 20:59 Last Admin: 10/12/21 21:20 Dose: 70 mg Documented by: Famotidine (Famotidine 20 Mg Tab) 20 mg PO BID GALINA Stop: 11/02/21 08:59 Last Admin: 10/12/21 21:21 Dose: 20 mg Documented by: Furosemide (Furosemide 40 Mg/4 Ml Vial) 40 mg IV BID17 GALINA Stop: 11/11/21 08:59 Last Admin: 10/12/21 18:24 Dose: 40 mg Documented by: Glucagon (Glucagon For Inj 1 Mg Vial) 1 mg SQ UD PRN; Protocol PRN Reason: Hypoglycemia Protocol Stop: 10/26/21 01:36 Glucose (Glucose 10 Tabs/Tube) 4 - 8 tabs PO UD PRN; Protocol PRN Reason: Hypoglycemia Protocol Stop: 10/26/21 01:36 Glucose (Glucose 40% Gel 15 Gm Tube) 15 - 30 gm PO UD PRN; Protocol PRN Reason: Hypoglycemia Protocol Stop: 10/26/21 01:36 Guaifenesin/Codeine Phosphate (Guaifenesin/Codeine 200mg/20mg 10ml Udc) 10 ml PO Q6H PRN PRN Reason: Cough Stop: 11/09/21 09:57 Last Admin: 10/11/21 20:29 Dose: 10 ml Documented by: Dexamethasone 10 mg/ Syringe 2.5 mls @ 1 mls/min IV QAM [facility] Stop: 10/16/21 09:03 Last Admin: 10/12/21 11:09 Dose: 1 mls/min Documented by: Insulin Aspart (Insulin Aspart Per Unit) 0 units SC AC [facility] Stop: 11/07/21 07:29 Last Admin: 10/12/21 18:03 Dose: 56 units Documented by: Insulin Aspart (Insulin Aspart Per Unit) 0 units SC HS [facility] Stop: 11/07/21 20:59 Last Admin: 10/12/21 21:36 Dose: 9 units Documented by: Insulin Human NPH (Insulin Human Nph) 50 units SC QAM [facility] Stop: 11/12/21 08:59 Metoprolol Succinate (Metoprolol Succ 50mg Ext Rel Tab) 50 mg PO DAILY [facility] Stop: 10/26/21 08:59 Last Admin: 10/12/21 08:14 Dose: 50 mg Documented by: Miscellaneous (Carbohydrates For Hypoglycemia ) 15 - 30 gm PO UD PRN PRN Reason: Hypoglycemia Protocol Stop: 10/26/21 01:36 Last Admin: 10/12/21 00:19 Dose: 15 gm Documented by: Miscellaneous Information (Pharmacy Glycemic Mgmt Consult) 1 ea N/A UD PRN PRN Reason: Consult Stop: 10/26/21 07:52 Mupirocin (Mupirocin 2% Oint 22 Gm Tube) 1 appln EXT BID [facility] Stop: 11/11/21 09:59 Last Admin: 10/12/21 21:22 Dose: 1 appln Documented by: Nystatin (Nystatin Powder 15gm Btl) 1 appln EXT BID PRN PRN Reason: Affected Skin Folds Stop: 11/08/21 09:32 Ondansetron HCl (Ondansetron Inj 2 Mg/Ml 2 Ml Vial) 4 mg IV Q6H PRN PRN Reason: Nausea Stop: 10/26/21 01:36 Potassium Chloride (Potassium Chloride Crtab 20 Meq Tabcr) 20 meq PO BID [facility] Stop: 10/30/21 08:59 Last Admin: 10/12/21 21:21 Dose: 20 meq Documented by: Sodium Chloride (Sodium Chloride 0.65% Na Soln 45 Ml (Hessmer)) 2 sprays NA Q1H PRN PRN Reason: Dryness Stop: 11/11/21 09:51 Tamsulosin HCl (Tamsulosin Hcl 0.4 Mg Cap) 0.4 mg PO QAM [facility] Stop: 11/09/21 09:59 Last Admin: 10/12/21 08:14 Dose: 0.4 mg Documented by: PG Care Time/CCT Total # of Minutes Spent Total Time Spent with Patient: Total time spent is greater than 50% in coordination of care (as documented) at patient's floor/unit and/or counseling patient: Coding Level of Care Code 91756 Subseq Hosp Care Lvl 3 Diagnoses COVID-19 U07.1 Respiratory failure J96.01 Chronicity: acute Respiratory failure complication: hypoxia LAURENT (acute kidney injury) N17.9 Type 2 diabetes mellitus E11.9 Metabolic acidosis E87.2 Hypertriglyceridemia E78.1 Hypertension I10 (1) Respiratory failure Chronicity: acute Respiratory failure complication: hypoxia Qualified Code(s): J96.01 - Acute respiratory failure with hypoxia
[2021-10-13] MEDS ORDERED: OXYMETAZOLINE 0.05% 30 ML BTL NAE ONE (08:50)
[2021-10-13] MEDS ORDERED: INSULIN HUMAN NPH SC SCH (09:00)
[2021-10-13] MEDS: ENOXAPARIN 80 MG/0.8 ML SYR SQ SCH ×2 (09:13→20:11)
[2021-10-13] MEDS: TAMSULOSIN HCL 0.4 MG CAP PO SCH (09:13)
[2021-10-13] MEDS: dexAMETHasone 10 MG in SYRINGE 0 ML IV SCH (09:13)
[2021-10-13] MEDS: POTASSIUM CHLORIDE CRTAB 20 MEQ TABCR PO SCH ×2 (09:13→20:12)
[2021-10-13] MEDS: ATORVASTATIN 20 MG TAB PO SCH (09:14)
[2021-10-13] MEDS: FAMOTIDINE 20 MG TAB PO SCH ×2 (09:14→20:12)
[2021-10-13] MEDS: FUROSEMIDE 40 MG/4 ML VIAL IV SCH ×2 (09:14→18:02)
[2021-10-13] MEDS: MUPIROCIN 2% OINT 22 GM TUBE EXT SCH ×2 (09:16→20:11)
[2021-10-13] MEDS: METOPROLOL SUCC 25MG EXT REL TAB PO SCH (09:38)
--- NOTE | 2021-10-13 10:40 | XRay Report ---
XR chest 1V portable CLINICAL HISTORY: hypoxia. Follow-up extensive bilateral airspace opacities COMPARISON STUDY: 10/09/2021 TECHNIQUE: 1 view of the chest FINDINGS: Single frontal view of the chest demonstrates the cardiomediastinal silhouette to be within normal li mits. Compared to the previous examination, there has been slight improvement of diffuse extensive in terstitial and alveolar opacities bilaterally. There is no evidence for pleural effusion. There is no evidence for vascular congestion. There is no acute osseous pathology. IMPRESSION: Slight interval improvement of diffuse, extensive interstitial and alveolar opacities keeley aterally. ACT 112: Negative or not required by law. Electronically signed by: Ricardo Thompson M.D. 10/13/2021 10:39 AM
[2021-10-13] MEDS ORDERED: INSULIN HUMAN REGULAR PER UNIT 5 UNITS in SYRINGE 4.95 ML IV ONE (12:30)
--- NOTE | 2021-10-13 12:40 | Pharmacy Report ---
Pharmacy Glycemic Short Note 2 - Date of Service October 13, 2021 - Glycemic Short BSG Results (Last 24 hours): 10/12/21 10/12/21 10/12/21 16:54 20:28 20:29 POC Glucose 355 H* 406 H* 400 H* 10/13/21 10/13/21 10/13/21 00:08 04:11 08:00 POC Glucose 232 H 142 H 157 H 10/13/21 10/13/21 11:55 12:12 POC Glucose 315 H* 304 H* OUTPATIENT ANTIDIABETIC REGIMEN: * Glimepiride 4 mg daily * Metformin 1000 mg PO BID * HbA1c = 8.4% (08/21/21) ASSESSMENT: 10/13 * Stressors stable * AM fasting slightly above goal range and did require 3 units of correction overnight. Will cautiously increase NPH (although concern for overnight hypoglycemia still significant based on previous trends) * Post-prandial BSG's significantly elevated yesterday (day 1 of resumed steroids). Will therefore significantly tighten CHO ratio and mildly tighten correction factor 10/12 * Resumed dexamethasone: 10 mg IV x5 days (1st dose this AM) with anticipated dexamethasone 6 mg IV x5 days following (per Dr. Phillips) * Another overnight hypoglycemic event noted last night. Will still increase NPH with steroids resuming, but will not quite increase back to previous regimen while on same dose of dexamethasone earlier this admission. Will adjust based on trend in overnight/AM BSG's * Will tighten Novolog CHO ratio given post-prandial elevations yesterday and steroids resuming today * Will maintain loose HS check and increase goal range in an attempt to avoid further overnight hypoglycemia 10/11 * Pt has received 157 units of insulin over the past 24hrs * 15 units of basal with Lantus * 142 units of bolus with NovoLog * BSGs [id number]/78-53/89-148-186 mg/dl * Pt with LOW BSG last evening and overnight. Most likely d/t aggressive CF/CR ordered. * Pt regimen is very heavily weighted towards bolus insulin. AM fasting BSG in range with minimal Lantus but post-prandial BSGs significantly elevated despite large, aggressive NovoLog dosing. * Will trial switching Lantus to NPH for basal insulin (not for steroid induced hyperglycemia Pt seems to have adequate endogenous insulin secretion from HS to AM so a 24 hr basal insulin may not be needed. The 4-5hr peak in NPH will help cover post-prandial hyperglycemia at lunch time. 10/09 * Pt has received 99 units of insulin over the past 24hrs * 20 units of basal with Lantus * 79 units of bolus with NovoLog * BSGs yesterday were [phone] mg/dL. Fasting today is 109 mg/dL. * Fasting continues to trend downwards so reduce basal insulin by 20% * Tighten Novolog as BSGs trend upwards throughout the day. Loose coverage at bedtime to prevent overcorrection. PLAN FOR INPATIENT GLYCEMIC CONTROL: * Hold outpatient oral diabetes medications (glimepiride, metformin) * Basal insulin - increase * Increase NPH 50 units qAM * Bolus insulin - tighten * NovoLog SQ ACHS and at 0200 tonight * Goal range: 110-140 mg/dL (140-180 mg/dL HS and overnight) * Correction factor: 8 mg/dL/unit AC (25 g/dL/unit HS and overnight) * Carb ratio 1 unit per 1 grams CHOs consumed (none HS and overnight) PLAN FOR DISCHARGE: * To be determined
[2021-10-14 08:01] LABS: BUN Creatinine Ratio 31.7 (10-20); C Reactive Protein 1.39 mg/dl (0-0.29); Calcium 8.8 mg/dl (8.5-10.1); Est GFR (African American) 100.9 ml/min; Est GFR (Non-African American) 87.1 ml/min; Potassium 3.8 mmol/L (3.5-5.1)
[2021-10-14] MEDS: INSULIN ASPART PER UNIT SC SCH ×4 (08:40→21:18)
[2021-10-14] MEDS ORDERED: INSULIN HUMAN NPH SC SCH (09:00)
[2021-10-14] MEDS: METOPROLOL SUCC 25MG EXT REL TAB PO SCH (09:34)
[2021-10-14] MEDS: FAMOTIDINE 20 MG TAB PO SCH ×2 (09:34→21:07)
[2021-10-14] MEDS: TAMSULOSIN HCL 0.4 MG CAP PO SCH (09:35)
[2021-10-14] MEDS: ATORVASTATIN 20 MG TAB PO SCH (09:35)
[2021-10-14] MEDS: POTASSIUM CHLORIDE CRTAB 20 MEQ TABCR PO SCH ×2 (09:35→21:08)
[2021-10-14] MEDS: ENOXAPARIN 80 MG/0.8 ML SYR SQ SCH ×2 (09:35→21:06)
[2021-10-14] MEDS: FUROSEMIDE 40 MG/4 ML VIAL IV SCH ×2 (09:38→17:40)
[2021-10-14] MEDS: dexAMETHasone 10 MG in SYRINGE 0 ML IV SCH (09:38)
[2021-10-14] MEDS: MUPIROCIN 2% OINT 22 GM TUBE EXT SCH ×2 (10:25→21:08)
--- NOTE | 2021-10-14 11:52 | Pharmacy Report ---
Pharmacy Glycemic Short Note 2 - Date of Service October 14, 2021 - Glycemic Short BSG Results (Last 24 hours): 10/13/21 10/13/21 10/13/21 11:55 12:12 16:27 Glucose POC Glucose 315 H* 304 H* 258 H 10/13/21 10/14/21 10/14/21 20:24 05:45 07:32 Glucose 71 POC Glucose 307 H* 100 H 10/14/21 11:40 Glucose POC Glucose 213 H OUTPATIENT ANTIDIABETIC REGIMEN: * Glimepiride 4 mg daily * Metformin 1000 mg PO BID * HbA1c = 8.4% (08/21/21) ASSESSMENT: 10/14 * Fasting blood sugar 100mg/dl, only CF at bedtime, will loosen further to prevent AM hypoglycemia * Blood sugars rising throughout the day d/t steroids, required IV insulin yesterday - increase NPH, continue CF/CR with meals, already very tight 10/13 * Stressors stable * AM fasting slightly above goal range and did require 3 units of correction overnight. Will cautiously increase NPH (although concern for overnight hypoglycemia still significant based on previous trends) * Post-prandial BSG's significantly elevated yesterday (day 1 of resumed steroids). Will therefore significantly tighten CHO ratio and mildly tighten correction factor 10/12 * Resumed dexamethasone: 10 mg IV x5 days (1st dose this AM) with anticipated dexamethasone 6 mg IV x5 days following (per Dr. Phillips) * Another overnight hypoglycemic event noted last night. Will still increase NPH with steroids resuming, but will not quite increase back to previous regimen while on same dose of dexamethasone earlier this admission. Will adjust based on trend in overnight/AM BSG's * Will tighten Novolog CHO ratio given post-prandial elevations yesterday and steroids resuming today * Will maintain loose HS check and increase goal range in an attempt to avoid further overnight hypoglycemia 10/11 * Pt has received 157 units of insulin over the past 24hrs * 15 units of basal with Lantus * 142 units of bolus with NovoLog * BSGs 168-086-349-63/78-53/89-148-186 mg/dl * Pt with LOW BSG last evening and overnight. Most likely d/t aggressive CF/CR ordered. * Pt regimen is very heavily weighted towards bolus insulin. AM fasting BSG in range with minimal Lantus but post-prandial BSGs significantly elevated despite large, aggressive NovoLog dosing. * Will trial switching Lantus to NPH for basal insulin (not for steroid induced hyperglycemia Pt seems to have adequate endogenous insulin secretion from HS to AM so a 24 hr basal insulin may not be needed. The 4-5hr peak in NPH will help cover post-prandial hyperglycemia at lunch time. 10/09 * Pt has received 99 units of insulin over the past 24hrs * 20 units of basal with Lantus * 79 units of bolus with NovoLog * BSGs yesterday were [phone] mg/dL. Fasting today is 109 mg/dL. * Fasting continues to trend downwards so reduce basal insulin by 20% * Tighten Novolog as BSGs trend upwards throughout the day. Loose coverage at bedtime to prevent overcorrection. PLAN FOR INPATIENT GLYCEMIC CONTROL: * Hold outpatient oral diabetes medications (glimepiride, metformin) * Basal insulin - increase * Increase NPH 65 units qAM * Bolus insulin - tighten * NovoLog SQ ACHS * Goal range: 110-140 mg/dL (140-180 mg/dL at HS) * Correction factor: 8 mg/dL/unit AC (30 g/dL/unit at HS) * Carb ratio 1 unit per 1 grams CHOs consumed (none at HS) PLAN FOR DISCHARGE: * To be determined
--- NOTE | 2021-10-14 12:58 | Hospitalist Progress Note ---
Date of Service October 14, 2021 Assessment & Plan (1) COVID-19: Plan: 56yo male with history of DM, HTN, HLP and Obesity (BMI of 46) presenting with acute hypoxic respiratory failure secondary to Covid-19 PNA. Patient is not vaccinated against Covid-19. He has been ill approximately 1 week prior to admission With Covid-19 pneumonia repeat CXR 10/09 shows persistent bilateral infiltrates, no significant change down to 4L yesterday evening and all night, on 4-5L all day today, best he has been in 2 weeks he is very happy, move to and his will visit CTA chest on 10/11: no PE, persistent bilateral viral pneumonia Completed 10-day course of dexamethasone 6mg IV daily, CRP went back up slightly to 4, added back dexamethasone 10mg IV x 5 days then 6mg x 5 days, day 3 of 10mg today CRP is down to <2 so steroids seem to be helping Remdesivir IV completed 5 days renal function better, started baricitinib, , increased dose to 4mg on 09/30 when renal function improved, completed 14 days on 10/11 Zithromax daily completed 5 days Encourage incentive spirometry and flutter valve -Continue on guaifenesin with dextromethorphan as needed, Tessalon Perles as needed for cough -encouraged OOB to chair and he is ambulating to the toilet in the room continue lasix 40 mg IV but increased to BID as his renal function is stable, K is 3.8, made a lot more urine past 2 days give Afrin for nasal congestion on 10/12 and 10/13, helped a lot (2) Respiratory failure: Plan: As above stable on 4L all night, on 4-5L today, needs oxymask for a little while transitioning from bed to chair CTA chest on 10/11 for tachycardia and hypoxia: no PE, just viral pneumonia (3) LAURENT (acute kidney injury): Plan: Cr of 3.63 on admission Suspected dehydration contributing as well as underlying illness, Covid with hypoxia Cr normalized quickly with IV fluids adequate UO, actually negative balance K normal at 3.8, Cr is 0.9 Continue Lasix 40mg IV BID, Cr is stable Have since discontinued Alonso catheter and is voiding on his own, but needed straight cath on 10/10 continue to monitor voiding add Flomax 0.4mg daily (4) Type 2 diabetes mellitus: Plan: profound hyperglycemia, glucose was 500 on 09/27 mild DKA on admission, elevated beta hydroxy butyrate treated with insulin drip, gap closed, sugars better to low at times in the AMs transitioned to basal/bolus insulin sugars jumped to 400s with dexamethasone 10mg IV sugar was 300 last night but much better today, on NPH 65 this morning will likely need some form on insulin briefly on discharge if he goes home on dexamethasone (5) Metabolic acidosis: Plan: due to DKA, renal failure resolved quickly (6) Hypertriglyceridemia: Plan: Chronic -Continue Atorvastatin (7) Hypertension: Plan: Chronic, blood pressures are controlled -Continue Toprol but increased to 100mg on 10/14, tolerating well -Continue to hold Lisinopril and HCTZ while giving Lasix continue lasix 40mg IV BID Plan: Ppx -continue Lovenox 0.5mg/kg bid, would definitely use Xarelto 10mg on discharge, high risk for clots Pepcid BID for GI prophylaxis Code - Full per discussion with patient hope to discharge by beginning of next week, maybe sooner iglesias will be if he can maintain saturations on exertion Admission and Anticipated Discharge Date Admission Date: September 25, 2021 Subjective patient feeling great, he is really happy because we are moving him to [address] and his can visit him he is down to 4L today, making urine with the Lasix 40mg BID and Cr is stable he is eating well we discussed getting him down a little further, maybe ready for discharge in 2-3 days he still requires a lot of oxygen on exertion, too much for home, but he is just happy to get to see his Review of Systems Review of Systems: All systems reviewed & are unremarkable except as noted in Subjective Respiratory: + cough and + dyspnea on exertion Physical Exam Physical Exam: General: well developed, obese male, comfortable, not ill appearing Neck: thick short neck, trachea midline, normal thyroid Lungs: clear to auscultation bilaterally, slightly tachypneic, no accessory muscle use, talking in full sentences Heart: tachycardic, S1 and S2, no murmur, peripheral pulses normal, capillary refill normal, no edema Abdomen: soft, NT, ND, + BS, no hepatomegaly, normal to percussion Extremities: normal in appearance, no cyanosis, no petechiae, strength is 5/5 bilaterally Neuro: awake, cooperative, moves all extremities, no focal motor deficits, CN II-XII intact, sensation in extremities intact, normal speech Skin: warm, dry, tinea cruris in groin Psych: Awake, alert oriented x 3, euthymic Results & Data Results & Data ([facility]) Vital Signs (Past 12 Hours) Vital Signs Temp Pulse Pulse Resp BP BP Pulse Ox 10/14/21 11:52 96 H 23 143/79 H 92 10/14/21 10:48 36.8 C 102 H 22 128/71 88 L 10/14/21 07:30 36.4 C L 71 23 130/90 93 10/14/21 04:27 37.0 C 80 19 138/75 93 10/14/21 03:27 81 Laboratory Results Laboratory Results - last 24 hr 10/14/21 10/14/21 10/14/21 05:45 07:32 11:40 Sodium 136 Potassium 3.8 Chloride 99 Carbon Dioxide 30 Anion Gap 7.0 BUN 31 H D Creatinine 0.98 Est Cr Clr Drug Dosing 124.0 Est GFR ( Amer) 100.9 Est GFR (Non-Af Amer) 87.1 BUN/Creatinine Ratio 31.7 H Glucose 71 POC Glucose 100 H 213 H Calcium 8.8 C-Reactive Protein 1.39 H 10/14/21 10/14/21 17:19 20:40 Sodium Potassium Chloride Carbon Dioxide Anion Gap BUN Creatinine Est Cr Clr Drug Dosing Est GFR ( Amer) Est GFR (Non-Af Amer) BUN/Creatinine Ratio Glucose POC Glucose 167 H 208 H Calcium C-Reactive Protein Medications Administered Current Inpatient Medications Acetaminophen (Acetaminophen 325 Mg Tab) 650 mg PO Q4H PRN PRN Reason: Pain or Fever Stop: 10/26/21 01:36 Albuterol (Albuterol Hfa 8 Gm Inhaler) 2 puffs INH Q2R PRN PRN Reason: Shortness Of Breath Stop: 10/26/21 05:01 Atorvastatin Calcium (Atorvastatin 20 Mg Tab) 20 mg PO DAILY GALINA Stop: 10/26/21 08:59 Last Admin: 10/14/21 09:35 Dose: 20 mg Documented by: Benzonatate (Benzonatate 100 Mg Capsule) 100 mg PO TID PRN PRN Reason: Cough Stop: 11/04/21 18:44 Last Admin: 10/09/21 08:34 Dose: 100 mg Documented by: Dextrose (Dextrose 50% 50 Ml Syringe) 25 - 50 ml IV UD PRN; Protocol PRN Reason: Hypoglycemia Protocol Stop: 10/26/21 01:36 Last Admin: 09/27/21 23:45 Dose: 25 ml Documented by: Enoxaparin Sodium (Enoxaparin 80 Mg/0.8 Ml Syr) 70 mg SQ Q12H GALINA Stop: 11/03/21 20:59 Last Admin: 10/14/21 21:06 Dose: 70 mg Documented by: Famotidine (Famotidine 20 Mg Tab) 20 mg PO BID GALINA Stop: 11/02/21 08:59 Last Admin: 10/14/21 21:07 Dose: 20 mg Documented by: Furosemide (Furosemide 40 Mg/4 Ml Vial) 40 mg IV BID17 GALINA Stop: 11/11/21 08:59 Last Admin: 10/14/21 17:40 Dose: 40 mg Documented by: Glucagon (Glucagon For Inj 1 Mg Vial) 1 mg SQ UD PRN; Protocol PRN Reason: Hypoglycemia Protocol Stop: 10/26/21 01:36 Glucose (Glucose 10 Tabs/Tube) 4 - 8 tabs PO UD PRN; Protocol PRN Reason: Hypoglycemia Protocol Stop: 10/26/21 01:36 Glucose (Glucose 40% Gel 15 Gm Tube) 15 - 30 gm PO UD PRN; Protocol PRN Reason: Hypoglycemia Protocol Stop: 10/26/21 01:36 Guaifenesin/Codeine Phosphate (Guaifenesin/Codeine 200mg/20mg 10ml Udc) 10 ml PO Q6H PRN PRN Reason: Cough Stop: 11/09/21 09:57 Last Admin: 10/11/21 20:29 Dose: 10 ml Documented by: Dexamethasone 10 mg/ Syringe 2.5 mls @ 1 mls/min IV QAM GALINA Stop: 10/16/21 09:03 Last Admin: 10/14/21 09:38 Dose: 1 mls/min Documented by: Insulin Aspart (Insulin Aspart Per Unit) 0 units SC AC GALINA Stop: 11/07/21 07:29 Last Admin: 10/14/21 17:40 Dose: 51 units Documented by: Insulin Aspart (Insulin Aspart Per Unit) 0 units SC HS G[facility]INA Stop: 11/07/21 20:59 Last Admin: 10/14/21 21:18 Dose: 1 units Documented by: Insulin Human NPH (Insulin Human Nph) 65 units SC QAM [facility] Stop: 11/13/21 08:59 Last Admin: 10/14/21 08:40 Dose: 65 units Documented by: Metoprolol Succinate (Metoprolol Succ 50mg Ext Rel Tab) 100 mg PO QAM [facility] Stop: 11/14/21 08:59 Miscellaneous (Carbohydrates For Hypoglycemia ) 15 - 30 gm PO UD PRN PRN Reason: Hypoglycemia Protocol Stop: 10/26/21 01:36 Last Admin: 10/12/21 00:19 Dose: 15 gm Documented by: Miscellaneous Information (Pharmacy Glycemic Mgmt Consult) 1 ea N/A UD PRN PRN Reason: Consult Stop: 10/26/21 07:52 Mupirocin (Mupirocin 2% Oint 22 Gm Tube) 1 appln EXT BID [facility] Stop: 11/11/21 09:59 Last Admin: 10/14/21 21:08 Dose: 1 appln Documented by: Nystatin (Nystatin Powder 15gm Btl) 1 appln EXT BID PRN PRN Reason: Affected Skin Folds Stop: 11/08/21 09:32 Ondansetron HCl (Ondansetron Inj 2 Mg/Ml 2 Ml Vial) 4 mg IV Q6H PRN PRN Reason: Nausea Stop: 10/26/21 01:36 Potassium Chloride (Potassium Chloride Crtab 20 Meq Tabcr) 20 meq PO BID [facility] Stop: 10/30/21 08:59 Last Admin: 10/14/21 21:08 Dose: 20 meq Documented by: Sodium Chloride (Sodium Chloride 0.65% Na Soln 45 Ml (Tate)) 2 sprays NA Q1H PRN PRN Reason: Dryness Stop: 11/11/21 09:51 Tamsulosin HCl (Tamsulosin Hcl 0.4 Mg Cap) [facility] Stop: 11/09/21 09:59 Last Admin: 10/14/21 09:35 Dose: 0.4 mg Documented by: PG Care Time/CCT Total # of Minutes Spent Total Time Spent with Patient: Total time spent is greater than 50% in coordination of care (as documented) at patient's floor/unit and/or counseling patient: Coding Level of Care Code 23339 Subseq Hosp Care Lvl 3 Diagnoses COVID-19 U07.1 Respiratory failure J96.01 Chronicity: acute Respiratory failure complication: hypoxia LAURENT (acute kidney injury) N17.9 Type 2 diabetes mellitus E11.9 Metabolic acidosis E87.2 Hypertriglyceridemia E78.1 Hypertension I10 (1) Respiratory failure Chronicity: acute Respiratory failure complication: hypoxia Qualified Code(s): J96.01 - Acute respiratory failure with hypoxia
[2021-10-15] MEDS: METOPROLOL SUCC 50MG EXT REL TAB PO SCH (08:16)
[2021-10-15] MEDS: FUROSEMIDE 40 MG/4 ML VIAL IV SCH ×2 (08:17→17:30)
[2021-10-15] MEDS: MUPIROCIN 2% OINT 22 GM TUBE EXT SCH ×2 (08:17→21:24)
[2021-10-15] MEDS: POTASSIUM CHLORIDE CRTAB 20 MEQ TABCR PO SCH ×2 (08:17→21:25)
[2021-10-15] MEDS: ATORVASTATIN 20 MG TAB PO SCH (08:17)
[2021-10-15] MEDS: FAMOTIDINE 20 MG TAB PO SCH ×2 (08:17→22:30)
[2021-10-15] MEDS: TAMSULOSIN HCL 0.4 MG CAP PO SCH (08:17)
[2021-10-15] MEDS: ENOXAPARIN 80 MG/0.8 ML SYR SQ SCH ×2 (08:17→21:23)
[2021-10-15] MEDS: INSULIN ASPART PER UNIT SC SCH ×4 (09:00→21:25)
[2021-10-15] MEDS ORDERED: INSULIN HUMAN NPH SC SCH (09:00)
[2021-10-15] MEDS: dexAMETHasone 10 MG in SYRINGE 0 ML IV SCH (10:00)
--- NOTE | 2021-10-15 13:20 | Pharmacy Report ---
Pharmacy Glycemic Short Note 2 - Date of Service October 15, 2021 - Glycemic Short BSG Results (Last 24 hours): 10/14/21 10/14/21 10/15/21 17:19 20:40 07:58 POC Glucose 167 H 208 H 78 10/15/21 12:06 POC Glucose 239 H OUTPATIENT ANTIDIABETIC REGIMEN: * Glimepiride 4 mg daily * Metformin 1000 mg PO BID * HbA1c = 8.4% (08/21/21) ASSESSMENT: 10/15/21 * Patient's BSGs yesterday were [phone]. Fasting today is 78 mg/dL. * Patient received 249 units of insulin yesterday (65 units of NPH plus 184 units of bolus). * With fasting of 78 mg/dL, concern that effects of NPH are carrying over for lo nger than 12 hours. Reduce NPH. * Since NPH reduced, will tighten CF and lower goal range on Novolog so carbohydrate coverage is not lost in the morning. 10/14 * Fasting blood sugar 100mg/dl, only CF at bedtime, will loosen further to prevent AM hypoglycemia * Blood sugars rising throughout the day d/t steroids, required IV insulin yesterday - increase NPH, continue CF/CR with meals, already very tight 10/13 * Stressors stable * AM fasting slightly above goal range and did require 3 units of correction overnight. Will cautiously increase NPH (although concern for overnight hypoglycemia still significant based on previous trends) * Post-prandial BSG's significantly elevated yesterday (day 1 of resumed steroids). Will therefore significantly tighten CHO ratio and mildly tighten correction factor 10/12 * Resumed dexamethasone: 10 mg IV x5 days (1st dose this AM) with anticipated dexamethasone 6 mg IV x5 days following (per Dr. Phillips) * Another overnight hypoglycemic event noted last night. Will still increase NPH with steroids resuming, but will not quite increase back to previous regimen while on same dose of dexamethasone earlier this admission. Will adjust based on trend in overnight/AM BSG's * Will tighten Novolog CHO ratio given post-prandial elevations yesterday and steroids resuming today * Will maintain loose HS check and increase goal range in an attempt to avoid further overnight hypoglycemia 10/11 * Pt has received 157 units of insulin over the past 24hrs * 15 units of basal with Lantus * 142 units of bolus with NovoLog * BSGs [phone]/[id number]/[id number] mg/dl * Pt with LOW BSG last evening and overnight. Most likely d/t aggressive CF/CR ordered. * Pt regimen is very heavily weighted towards bolus insulin. AM fasting BSG in range with minimal Lantus but post-prandial BSGs significantly elevated despite large, aggressive NovoLog dosing. * Will trial switching Lantus to NPH for basal insulin (not for steroid induced hyperglycemia Pt seems to have adequate endogenous insulin secretion from HS to AM so a 24 hr basal insulin may not be needed. The 4-5hr peak in NPH will help cover post-prandial hyperglycemia at lunch time. 10/09 * Pt has received 99 units of insulin over the past 24hrs * 20 units of basal with Lantus * 79 units of bolus with NovoLog * BSGs yesterday were [phone] mg/dL. Fasting today is 109 mg/dL. * Fasting continues to trend downwards so reduce basal insulin by 20% * Tighten Novolog as BSGs trend upwards throughout the day. Loose coverage at bedtime to prevent overcorrection. PLAN FOR INPATIENT GLYCEMIC CONTROL: * Hold outpatient oral diabetes medications (glimepiride, metformin) * Basal insulin * decrease to NPH 50 units qAM * Bolus insulin - tighten * NovoLog SQ ACHS * Goal range: 80-140 mg/dL (140-180 mg/dL at HS) * Correction factor: 6 mg/dL/unit AC (30 g/dL/unit at HS) * Carb ratio 1 unit per 1 grams CHOs consumed (none at HS) PLAN FOR DISCHARGE: * To be determined - unclear discharge plan right now
--- NOTE | 2021-10-15 15:16 | Hospitalist Progress Note ---
Date of Service October 15, 2021 Assessment & Plan (1) COVID-19: Plan: 56yo male with history of DM, HTN, HLP and Obesity (BMI of 46) presenting with acute hypoxic respiratory failure secondary to Covid-19 PNA. Patient is not vaccinated against Covid-19. He has been ill approximately 1 week prior to admission With Covid-19 pneumonia repeat CXR 10/09 shows persistent bilateral infiltrates, no significant change Was on High flow for many days and now weaned down to down to 4L at rest and 9L Oxymask with exertion, best he has been in 2 weeks CTA chest on 10/11: no PE, persistent bilateral viral pneumonia Completed 10-day course of dexamethasone 6mg IV daily, CRP went back up slightly to 4, added back dexamethasone 10mg IV x 5 days then 6mg x 5 days, day 4 of 10mg today CRP is down to <2 so steroids seem to be helping Remdesevir IV completed 5 days renal function better, started baricitinib, , increased dose to 4mg on 09/30 when renal function improved, completed 14 days on 10/11 Zithromax daily completed 5 days Encourage incentive spirometry and flutter valve -Continue on guaifenesin with dextromethorphan as needed, Tessalon Perles as needed for cough -encouraged OOB to chair and he is ambulating to the toilet in the room continue lasix 40 mg IV BID give Afrin for nasal congestion on 10/12 and 10/13, helped a lot (2) Respiratory failure: Plan: As above CTA chest on 10/11 for tachycardia and hypoxia: no PE, just viral pneumonia (3) LAURENT (acute kidney injury): Plan: Cr of 3.63 on admission Suspected dehydration contributing as well as underlying illness, Covid with hypoxia Cr normalized quickly with IV fluids adequate UO, actually negative balance K normal at 3.8, Cr is 0.9 Continue Lasix 40mg IV BID, Cr is stable Have since discontinued Alonso catheter and is voiding on his own, but needed straight cath on 10/10 continue to monitor voiding add Flomax 0.4mg daily -check labs in AM (4) Type 2 diabetes mellitus: Plan: profound hyperglycemia, glucose was 500 on 09/27 mild DKA on admission, elevated beta hydroxy butyrate treated with insulin drip, gap closed, sugars better to low at times in the AMs transitioned to basal/bolus insulin sugars jumped to 400s with dexamethasone 10mg IV glucose better today but still somewhat high last day of decadron will be tomorrow (5) Metabolic acidosis: Plan: due to DKA, renal failure resolved quickly (6) Hypertriglyceridemia: Plan: Chronic -Continue Atorvastatin (7) Hypertension: Plan: Chronic, blood pressures are controlled -Continue Toprol but increased to 100mg on 10/14, tolerating well -Continue to hold Lisinopril and HCTZ while giving Lasix continue lasix 40mg IV BID Plan: Ppx -continue Lovenox 0.5mg/kg bid, would definitely use Xarelto 10mg on discharge, high risk for clots Pepcid BID for GI prophylaxis Code - Full per discussion with patient hope to discharge by beginning of next week, maybe sooner iglesias will be if he can maintain saturations on exertion Admission and Anticipated Discharge Date Admission Date: September 25, 2021 Subjective Pt currently getting a haircut in his room by his . No complaints except gets SOB with walking across room to bathroom, has O2 on at 9L Oxymask to go to bathroom, but 4LNC at rest. No CP, no leg pain, no abd pain, no constipation Review of Systems Review of Systems: All systems reviewed & are unremarkable except as noted in HPI & below Physical Exam Constitutional: WD/WN, vitals as above + morbidly obese Eyes: + anicteric sclerae Neck: trachea midline, no thyromegaly Respiratory: normal respiratory effort Auscultation: lungs clear to auscultation bilaterally Cardiovascular: RRR, no murmur, no edema Chest (Breasts): Chest: normal inspection of chest Gastrointestinal (Abdomen): normal bowel sounds, soft, nontender, no hepatosplenomegaly Musculoskeletal: Extremities: extremities normal to inspection; no cyanosis and no clubbing Skin: no rashes, warm and dry Neurologic: moves all extremities and awake; no focal motor deficits Psychiatric: A+Ox3, euthymic affect Results & Data Results & Data ([facility]) Vital Signs (Past 12 Hours) Vital Signs Temp Pulse Resp BP Pulse Ox 10/15/21 06:54 36.4 C L 72 18 148/83 H 95 Laboratory Results 10/15/21 10/15/21 10/14/21 Range/Units 12:06 07:58 20:40 POC Glucose 239 H 78 208 H (70-99) mg/dl 10/14/21 Range/Units 17:19 POC Glucose 167 H (70-99) mg/dl PG Care Time/CCT Total # of Minutes Spent Total Time Spent with Patient: Total time spent is greater than 50% in coordination of care (as documented) at patient's floor/unit and/or counseling patient: Coding Level of Care Code 17681 Subseq Hosp Care Lvl 2 Diagnoses COVID-19 U07.1 Respiratory failure J96.01 Chronicity: acute Respiratory failure complication: hypoxia LAURENT (acute kidney injury) N17.9 Type 2 diabetes mellitus E11.9 Metabolic acidosis E87.2 Hypertriglyceridemia E78.1 Hypertension I10 (1) Respiratory failure Chronicity: acute Respiratory failure complication: hypoxia Qualified Code(s): J96.01 - Acute respiratory failure with hypoxia
[2021-10-16] MEDS: CARBOHYDRATES FOR HYPOGLYCEMIA PO PRN (00:51)
[2021-10-16] MEDS: ATORVASTATIN 20 MG TAB PO SCH (08:30)
[2021-10-16] MEDS: dexAMETHasone 10 MG in SYRINGE 0 ML IV SCH (08:30)
[2021-10-16] MEDS: ENOXAPARIN 80 MG/0.8 ML SYR SQ SCH ×2 (08:30→21:06)
[2021-10-16] MEDS: FUROSEMIDE 40 MG/4 ML VIAL IV SCH ×2 (08:32→18:11)
[2021-10-16] MEDS: FAMOTIDINE 20 MG TAB PO SCH ×2 (08:35→21:22)
[2021-10-16] MEDS: METOPROLOL SUCC 50MG EXT REL TAB PO SCH (08:35)
[2021-10-16] MEDS: TAMSULOSIN HCL 0.4 MG CAP PO SCH (08:37)
[2021-10-16] MEDS: MUPIROCIN 2% OINT 22 GM TUBE EXT SCH ×2 (08:37→21:07)
[2021-10-16] MEDS: POTASSIUM CHLORIDE CRTAB 20 MEQ TABCR PO SCH ×2 (08:41→21:21)
[2021-10-16] MEDS: INSULIN ASPART PER UNIT SC SCH ×4 (08:49→21:06)
[2021-10-16 08:54] LABS: Basophils # (auto) 0.01 K/uL (0-0.2); Basophils % (auto) 0.1 %; Eosinophils # (auto) 0.16 K/uL (0-0.5); Eosinophils % (auto) 2.1 %; Hematocrit (blood only) 37.2 % (42-52); Hemoglobin 12.6 g/dL (14.0-18.0); Immature Granulocytes # (auto) 0.03 K/uL (0.00-0.02); Immature Granulocytes % (auto) 0.4 %; Lymphocytes # (auto) 1.63 K/uL (1.2-3.4); Lymphocytes % (auto) 21.6 %; Mean Corpuscular Hemoglobin 28.4 pg (25-34); Mean Corpuscular Hgb Conc 33.9 g/dL (32-36); Mean Platelet Volume 9.3 fL (7.4-10.4); Monocytes # (auto) 0.49 K/uL (0.11-0.59); Monocytes % (auto) 6.5 %; Neutrophils # (auto) 5.21 K/uL (1.4-6.5); Neutrophils % (auto) 69.3 %; Platelet Count 350 K/uL (130-400); RDW Coefficient of Variation 13.7 % (11.5-14.5); RDW Standard Deviation 41.3 fL (36.4-46.3); Red Blood Count 4.43 M/uL (4.7-6.1); White Blood Count 7.53 K/uL (4.8-10.8)
[2021-10-16] MEDS ORDERED: INSULIN HUMAN NPH SC SCH (09:00)
[2021-10-16 09:05] LABS: Albumin Level 2.6 gm/dl (3.4-5.0); BUN Creatinine Ratio 29.6 (10-20); Calcium 9.3 mg/dl (8.5-10.1); Est GFR (African American) 108.9 ml/min
[2021-10-16 09:07] LABS: Albumin Globulin Ratio 0.6 (0.9-2); Bilirubin,Total 0.3 mg/dl (0.2-1); Globulin 4.5 gm/dl (2.5-4.0); Total Protein 7.1 gm/dl (6.4-8.2)
--- NOTE | 2021-10-17 06:51 | Hospitalist Progress Note ---
Date of Service October 16, 2021 Assessment & Plan (1) COVID-19: Plan: 56yo male with history of DM, HTN, HLP and Obesity (BMI of 46) presenting with acute hypoxic respiratory failure secondary to Covid-19 PNA. Patient is not vaccinated against Covid-19. He has been ill approximately 1 week prior to admission With Covid-19 pneumonia repeat CXR 10/09 shows persistent bilateral infiltrates, no significant change Was on High flow for many days and now weaned down to down to 4L at rest and 9L Oxymask with exertion, best he has been in 2 weeks-remained stable on same amount of oxygen today CTA chest on 10/11: no PE, persistent bilateral viral pneumonia Completed 10-day course of dexamethasone 6mg IV daily, CRP went back up slightly to 4, added back dexamethasone 10mg IV x 5 days then 6mg x 5 days, day 5 of 10mg today-we will now discontinue dexamethasone CRP is down to <2 so steroids seem to be helping Remdesevir IV completed 5 days renal function better, started baricitinib, , increased dose to 4mg on 09/30 when renal function improved, completed 14 days on 10/11 Zithromax daily completed 5 days Encourage incentive spirometry and flutter valve -Continue on guaifenesin with dextromethorphan as needed, Tessalon Perles as needed for cough -encouraged OOB to chair and he is ambulating to the toilet in the room continue lasix 40 mg IV BID but will likely convert to p.o. Lasix tomorrow give Afrin for nasal congestion on 10/12 and 10/13, helped a lot (2) Respiratory failure: Plan: As above CTA chest on 10/11 for tachycardia and hypoxia: no PE, just viral pneumonia (3) LAURENT (acute kidney injury): Plan: Cr of 3.63 on admission Suspected dehydration contributing as well as underlying illness, Covid with hypoxia Cr normalized quickly with IV fluids adequate UO, actually negative balance Creatinine remains normal even with IV diuresis Continue Lasix 40mg IV BID, Cr is stable Have since discontinued Alonso catheter and is voiding on his own, but needed straight cath on 10/10 continue to monitor voiding Added Flomax 0.4mg daily Follow BMP periodically (4) Type 2 diabetes mellitus: Plan: profound hyperglycemia, glucose was 500 on 09/27 mild DKA on admission, elevated beta hydroxy butyrate treated with insulin drip, gap closed, sugars better to low at times in the AMs transitioned to basal/bolus insulin sugars jumped to 400s with dexamethasone 10mg IV glucose now with improved control Advised pharmacy that dexamethasone will be discontinued so NPH dose can be adjusted or laminated (5) Metabolic acidosis: Plan: due to DKA, renal failure resolved quickly (6) Hypertriglyceridemia: Plan: Chronic -Continue Atorvastatin (7) Hypertension: Plan: Chronic, blood pressures are controlled -Continue Toprol but increased to 100mg on 10/14, tolerating well -Continue to hold Lisinopril and HCTZ while giving Lasix continue lasix 40mg IV BID Plan: Ppx -continue Lovenox 0.5mg/kg bid, would definitely use Xarelto 10mg on discharge, high risk for clots Pepcid BID for GI prophylaxis Code - Full per discussion with patient hope to discharge by beginning of next week, maybe sooner iglesias will be if he can maintain saturations on exertion Admission and Anticipated Discharge Date Admission Date: September 25, 2021 Subjective Patient feeling well, has no complaints. Remains on 4 L nasal cannula and still has dyspnea on exertion with walking to the bathroom, increase his oxygen to 9 for that. Review of Systems Review of Systems: All systems reviewed & are unremarkable except as noted in HPI & below Physical Exam Constitutional: WD/WN, vitals as above + morbidly obese Eyes: + anicteric sclerae Neck: trachea midline, no thyromegaly Respiratory: normal respiratory effort Auscultation: lungs clear to auscultation bilaterally Cardiovascular: RRR, no murmur, no edema Chest (Breasts): Chest: normal inspection of chest Gastrointestinal (Abdomen): normal bowel sounds, soft, nontender, no hepatosplenomegaly Musculoskeletal: Extremities: extremities normal to inspection; no cyanosis and no clubbing Skin: no rashes, warm and dry Neurologic: moves all extremities and awake; no focal motor deficits Psychiatric: A+Ox3, euthymic affect Results & Data Results & Data ([facility]) Vital Signs (Past 12 Hours) Vital Signs Temp Pulse Resp BP Pulse Ox 10/16/21 22:39 36.6 C 77 18 150/90 H 97 Laboratory Results 10/16/21 10/16/21 10/16/21 Range/Units 20:38 17:09 11:57 WBC (4.8-10.8) K/uL RBC (4.7-6.1) M/uL Hgb (14.0-18.0) g/dL Hct (42-52) % MCV (80-100) fL MCH (25-34) pg MCHC (32-36) g/dL RDW Std Deviation (36.4-46.3) fL RDW Coeff of Val (11.5-14.5) % Plt Count (130-400) K/uL MPV (7.4-10.4) fL Immature Gran % (Auto) % Neut % (Auto) % Lymph % (Auto) % [place] % (Auto) % Eos % (Auto) % Baso % (Auto) % Neut # (Auto) (1.4-6.5) K/uL Lymph # (Auto) (1.2-3.4) K/uL [place] # (Auto) (0.11-0.59) K/uL Eos # (Auto) (0-0.5) K/uL Baso # (Auto) (0-0.2) K/uL Immature Gran # (Auto) (0.00-0.02) K/uL Sodium (136-145) mmol/L Potassium (3.5-5.1) mmol/L Chloride (98-107) mmol/L Carbon Dioxide (21-32) mmol/L Anion Gap (3-11) BUN (7-18) mg/dl Creatinine (0.6-1.4) mg/dl Est Cr Clr Drug Dosing ml/min Est GFR ( Amer) ml/min Est GFR (Non-Af Amer) ml/min BUN/Creatinine Ratio (10-20) Glucose (70-99) mg/dl POC Glucose 287 H 276 H 258 H (70-99) mg/dl Calcium (8.5-10.1) mg/dl Total Bilirubin (0.2-1) mg/dl AST (15-37) U/L ALT (12-78) Alkaline Phosphatase (45-117) U/L Total Protein (6.4-8.2) gm/dl Albumin (3.4-5.0) gm/dl Globulin (2.5-4.0) gm/dl Albumin/Globulin Ratio (0.9-2) 10/16/21 10/16/2110/16/21 Range/Units 08:14 08:10 08:10 WBC 7.53 (4.8-10.8) K/uL RBC 4.43 L (4.7-6.1) M/uL Hgb 12.6 L (14.0-18.0) g/dL Hct 37.2 L (42-52) % MCV 84.0 (80-100) fL MCH 28.4 (25-34) pg MCHC 33.9 (32-36) g/dL RDW Std Deviation 41.3 (36.4-46.3) fL RDW Coeff of Val 13.7 (11.5-14.5) % Plt Count 350 (130-400) K/uL MPV 9.3 (7.4-10.4) fL Immature Gran % (Auto) 0.4 % Neut % (Auto) 69.3 % Lymph % (Auto) 21.6 % [place] % (Auto) 6.5 % Eos % (Auto) 2.1 % Baso % (Auto) 0.1 % Neut # (Auto) 5.21 (1.4-6.5) K/uL Lymph # (Auto) 1.63 (1.2-3.4) K/uL [place] # (Auto) 0.49 (0.11-0.59) K/uL Eos # (Auto) 0.16 (0-0.5) K/uL Baso # (Auto) 0.01 (0-0.2) K/uL Immature Gran # (Auto) 0.03 H (0.00-0.02) K/uL Sodium 135 L (136-145) mmol/L Potassium 4.0 (3.5-5.1) mmol/L Chloride 99 (98-107) mmol/L Carbon Dioxide 32 (21-32) mmol/L Anion Gap 4.0 (3-11) BUN 27 H (7-18) mg/dl Creatinine 0.92 (0.6-1.4) mg/dl Est Cr Clr Drug Dosing 132.0 ml/min Est GFR ( Amer) 108.9 ml/min Est GFR (Non-Af Amer) 94.0 ml/min BUN/Creatinine Ratio 29.6 H (10-20) Glucose 94 (70-99) mg/dl POC Glucose 96 (70-99) mg/dl Calcium 9.3 (8.5-10.1) mg/dl Total Bilirubin 0.3 (0.2-1) mg/dl AST 23 (15-37) U/L ALT 58 (12-78) Alkaline Phosphatase 46 (45-117) U/L Total Protein 7.1 (6.4-8.2) gm/dl Albumin 2.6 L (3.4-5.0) gm/dl Globulin 4.5 H (2.5-4.0) gm/dl Albumin/Globulin Ratio 0.6 L (0.9-2) PG Care Time/CCT Total # of Minutes Spent Total Time Spent with Patient: Total time spent is greater than 50% in coordination of care (as documented) at patient's floor/unit and/or counseling patient: Coding Level of Care Code 92114 Subseq Hosp Care Lvl 3 Diagnoses COVID-19 U07.1 Respiratory failure J96.01 Chronicity: acute Respiratory failure complication: hypoxia LAURENT (acute kidney injury) N17.9 Type 2 diabetes mellitus E11.9 Metabolic acidosis E87.2 Hypertriglyceridemia E78.1 Hypertension I10 (1) Respiratory failure Chronicity: acute Respiratory failure complication: hypoxia Qualified Code(s): J96.01 - Acute respiratory failure with hypoxia
[2021-10-17] MEDS: FAMOTIDINE 20 MG TAB PO SCH ×2 (08:24→21:17)
[2021-10-17] MEDS: POTASSIUM CHLORIDE CRTAB 20 MEQ TABCR PO SCH (08:25)
[2021-10-17] MEDS: TAMSULOSIN HCL 0.4 MG CAP PO SCH (08:25)
[2021-10-17] MEDS: ENOXAPARIN 80 MG/0.8 ML SYR SQ SCH ×2 (08:25→21:16)
[2021-10-17] MEDS: MUPIROCIN 2% OINT 22 GM TUBE EXT SCH ×2 (08:26→21:17)
[2021-10-17] MEDS: METOPROLOL SUCC 50MG EXT REL TAB PO SCH (08:26)
[2021-10-17] MEDS: FUROSEMIDE 40 MG/4 ML VIAL IV SCH (08:27)
[2021-10-17] MEDS: ATORVASTATIN 20 MG TAB PO SCH (08:27)
[2021-10-17] MEDS: INSULIN ASPART PER UNIT SC SCH ×4 (08:38→21:15)
[2021-10-17 08:57] LABS: BUN Creatinine Ratio 27.2 (10-20); Calcium 8.8 mg/dl (8.5-10.1); Creatinine Clr Calc Pharmacy 127.9 ml/min; Est GFR (African American) 106.1 ml/min; Est GFR (Non-African American) 91.6 ml/min; Potassium 3.7 mmol/L (3.5-5.1)
--- NOTE | 2021-10-17 12:16 | Pharmacy Report ---
Pharmacy Glycemic Short Note 2 - Date of Service October 17, 2021 - Glycemic Short BSG Results (Last 24 hours): 10/16/21 10/16/21 10/17/21 17:09 20:38 07:57 Glucose 80 POC Glucose 276 H 287 H 10/17/21 10/17/21 07:58 12:03 Glucose POC Glucose 76 156 H OUTPATIENT ANTIDIABETIC REGIMEN: * Glimepiride 4 mg daily * Metformin 1000 mg PO BID * HbA1c = 8.4% (08/21/21) ASSESSMENT: 10/17 * Last day of dex was yesterday 10/16. No steroids ordered for today. Will stop nph since dexamethasone dc. Empirically loosen CF/CR without steroids on board. * Add low dose weight based Lantus since A1c >8% 10/15/21 * Patient's BSGs yesterday were [phone]. Fasting today is 78 mg/dL. * Patient received 249 units of insulin yesterday (65 units of NPH plus 184 units of bolus). * With fasting of 78 mg/dL, concern that effects of NPH are carrying over for longer than 12 hours. Reduce NPH. * Since NPH reduced, will tighten CF and lower goal range on Novolog so carbohydrate coverage is not lost in the morning. 10/14 * Fasting blood sugar 100mg/dl, only CF at bedtime, will loosen further to prevent AM hypoglycemia * Blood sugars rising throughout the day d/t steroids, required IV insulin yeste rday - increase NPH, continue CF/CR with meals, already very tight 10/13 * Stressors stable * AM fasting slightly above goal range and did require 3 units of correction overnight. Will cautiously increase NPH (although concern for overnight hypoglycemia still significant based on previous trends) * Post-prandial BSG's significantly elevated yesterday (day 1 of resumed steroids). Will therefore significantly tighten CHO ratio and mildly tighten correction factor 10/12 * Resumed dexamethasone: 10 mg IV x5 days (1st dose this AM) with anticipated dexamethasone 6 mg IV x5 days following (per Dr. Phillips) * Another overnight hypoglycemic event noted last night. Will still increase NPH with steroids resuming, but will not quite increase back to previous regimen while on same dose of dexamethasone earlier this admission. Will adjust based on trend in overnight/AM BSG's * Will tighten Novolog CHO ratio given post-prandial elevations yesterday and steroids resuming today * Will maintain loose HS check and increase goal range in an attempt to avoid further overnight hypoglycemia 10/11 * Pt has received 157 units of insulin over the past 24hrs * 15 units of basal with Lantus * 142 units of bolus with NovoLog * BSGs [phone]/78-53/89-148-186 mg/dl * Pt with LOW BSG last evening and overnight. Most likely d/t aggressive CF/CR ordered. * Pt regimen is very heavily weighted towards bolus insulin. AM fasting BSG in range with minimal Lantus but post-prandial BSGs significantly elevated despite large, aggressive NovoLog dosing. * Will trial switching Lantus to NPH for basal insulin (not for steroid induced hyperglycemia Pt seems to have adequate endogenous insulin secretion from HS to AM so a 24 hr basal insulin may not be needed. The 4-5hr peak in NPH will help cover post-prandial hyperglycemia at lunch time. 10/09 * Pt has received 99 units of insulin over the past 24hrs * 20 units of basal with Lantus * 79 units of bolus with NovoLog * BSGs yesterday were [phone] mg/dL. Fasting today is 109 mg/dL. * Fasting continues to trend downwards so reduce basal insulin by 20% * Tighten Novolog as BSGs trend upwards throughout the day. Loose coverage at bedtime to prevent overcorrection. PLAN FOR INPATIENT GLYCEMIC CONTROL: * Hold outpatient oral diabetes medications (glimepiride, metformin) * Basal insulin * DC NPH * Add Lantus 20 units SQ daily - start when BSG > 140 * Bolus insulin - loosen * NovoLog SQ ACHS * Goal range: 110-140 mg/dL * Correction factor: 15 mg/dL/unit AC (30 g/dL/unit at HS) * Carb ratio 1 unit per 4 grams CHOs consumed (none at HS) PLAN FOR DISCHARGE: * To be determined - unclear discharge plan right now
[2021-10-17] MEDS: INSULIN GLARGINE SOLOSTAR 100 UNITS/ML 3 ML PEN SC SCH (12:56)
--- NOTE | 2021-10-17 13:33 | Hospitalist Progress Note ---
Date of Service October 17, 2021 Assessment & Plan (1) COVID-19: Plan: 56yo male with history of DM, HTN, HLP and Obesity (BMI of 46) presenting with acute hypoxic respiratory failure secondary to Covid-19 PNA. Patient is not vaccinated against Covid-19. He has been ill approximately 1 week prior to admission With Covid-19 pneumonia repeat CXR 10/09 shows persistent bilateral infiltrates, no significant change Was on High flow for many days and now weaned down to down to 4L at rest and 9L Oxymask with exertion, best he has been in 2 weeks-remained stable on same amount of oxygen today but decreased him down to 3L at rest and POx remained at 95%--> asked RN to wean him down at rest and with exertion CTA chest on 10/11: no PE, persistent bilateral viral pneumonia Completed 10-day course of dexamethasone 6mg IV daily, CRP went back up slightly to 4, added back dexamethasone 10mg IV x 5 days then 6mg x 5 days-now complete CRP is down to <2 so steroids seem to be helping Remdesevir IV completed 5 days renal function better, started baricitinib, , increased dose to 4mg on 09/30 when renal function improved, completed 14 days on 10/11 Zithromax daily completed 5 days Encourage incentive spirometry and flutter valve -Continue on guaifenesin with dextromethorphan as needed, Tessalon Perles as needed for cough -encouraged OOB to chair and he is ambulating to the toilet in the room continue lasix 40 mg but convert to po once daily for tomorrow give Afrin for nasal congestion on 10/12 and 10/13, helped a lot (2) Respiratory failure: Plan: As above CTA chest on 10/11 for tachycardia and hypoxia: no PE, just viral pneumonia (3) LAURENT (acute kidney injury): Plan: Cr of 3.63 on admission Suspected dehydration contributing as well as underlying illness, Covid with hypoxia Cr normalized quickly with IV fluids adequate UO, actually negative balance Creatinine remains normal even with IV diuresis Continue Lasix 40mg po once daily as above Have since discontinued Alonso catheter and is voiding on his own, but needed straight cath on 10/10 continue to monitor voiding Added Flomax 0.4mg daily Follow BMP periodically (4) Type 2 diabetes mellitus: Plan: profound hyperglycemia, glucose was 500 on 09/27 mild DKA on admission, elevated beta hydroxy butyrate treated with insulin drip, gap closed, sugars better to low at times in the AMs transitioned to basal/bolus insulin sugars jumped to 400s with dexamethasone 10mg IV glucose now with improved control Advised pharmacy that dexamethasone will be discontinued so NPH dose can be adjusted (5) Metabolic acidosis: Plan: due to DKA, renal failure resolved quickly (6) Hypertriglyceridemia: Plan: Chronic -Continue Atorvastatin (7) Hypertension: Plan: Chronic, blood pressures are controlled -Continue Toprol but increased to 100mg on 10/14, tolerating well -Continue to hold Lisinopril and HCTZ while giving Lasix Plan: Ppx -continue Lovenox 0.5mg/kg bid, would definitely use Xarelto 10mg on discharge, high risk for clots Pepcid BID for GI prophylaxis Code - Full per discussion with patient hope to discharge by beginning of next week iglesias will be if he can maintain saturations on exertion-asked RN to do POx with ambulation today Admission and Anticipated Discharge Date Admission Date: September 25, 2021 Subjective Still HANKINS with walking to bathroom but slightly improved over yesterday. POx 94- 97% on 4LNC today and I decreased his O2 to 3L while I saw him. No CP, no bd pain, is eating and drinking, moving bowels, making urine. Review of Systems Review of Systems: All systems reviewed & are unremarkable except as noted in HPI & below Physical Exam Constitutional: WD/WN, vitals as above + morbidly obese Eyes: + anicteric sclerae Neck: trachea midline, no thyromegaly Respiratory: normal respiratory effort Auscultation: lungs clear to auscultation bilaterally Cardiovascular: RRR, no murmur, no edema Chest (Breasts): Chest: normal inspection of chest Gastrointestinal (Abdomen): normal bowel sounds, soft, nontender, no hepatosplenomegaly Musculoskeletal: Extremities: extremities normal to inspection; no cyanosis and no clubbing Skin: no rashes, warm and dry Neurologic: moves all extremities and awake; no focal motor deficits Psychiatric: A+Ox3, euthymic affect Results & Data Results & Data ([facility]) Vital Signs (Past 12 Hours) Vital Signs Temp Pulse Resp BP Pulse Ox 10/17/21 07:23 36.5 C 71 16 137/82 94 Laboratory Results 10/17/21 10/17/21 10/17/21 Range/Units 12:03 07:58 07:57 Sodium 138 (136-145) mmol/L Potassium 3.7 (3.5-5.1) mmol/L Chloride 100 (98-107) mmol/L Carbon Dioxide 32 (21-32) mmol/L Anion Gap 5.0 (3-11) BUN 26 H (7-18) mg/dl Creatinine 0.94 (0.6-1.4) mg/dl Est Cr Clr Drug Dosing 127.9 ml/min Est GFR ( Amer) 106.1 ml/min Est GFR (Non-Af Amer) 91.6 ml/min BUN/Creatinine Ratio 27.2 H (10-20) Glucose 80 (70-99) mg/dl POC Glucose 156 H 76 (70-99) mg/dl Calcium 8.8 (8.5-10.1) mg/dl 10/16/21 10/16/21 Range/Units 20:38 17:09 Sodium (136-145) mmol/L Potassium (3.5-5.1) mmol/L Chloride (98-107) mmol/L Carbon Dioxide (21-32) mmol/L Anion Gap (3-11) BUN (7-18) mg/dl Creatinine (0.6-1.4) mg/dl Est Cr Clr Drug Dosing ml/min Est GFR ( Amer) ml/min Est GFR (Non-Af Amer) ml/min BUN/Creatinine Ratio (10-20) Glucose (70-99) mg/dl POC Glucose 287 H 276 H (70-99) mg/dl Calcium (8.5-10.1) mg/dl PG Care Time/CCT Total # of Minutes Spent Total Time Spent with Patient: Total time spent is greater than 50% in coordination of care (as documented) at patient's floor/unit and/or counseling patient: Coding Level of Care Code 47870 Subseq Hosp Care Lvl 2 Diagnoses COVID-19 U07.1 Respiratory failure J96.01 Chronicity: acute Respiratory failure complication: hypoxia LAURENT (acute kidney injury) N17.9 Type 2 diabetes mellitus E11.9 Metabolic acidosis E87.2 Hypertriglyceridemia E78.1 Hypertension I10 (1) Respiratory failure Chronicity: acute Respiratory failure complication: hypoxia Qualified Code(s): J96.01 - Acute respiratory failure with hypoxia
[2021-10-18] MEDS: TAMSULOSIN HCL 0.4 MG CAP PO SCH (08:15)
[2021-10-18] MEDS: FAMOTIDINE 20 MG TAB PO SCH (08:15)
[2021-10-18] MEDS: ENOXAPARIN 80 MG/0.8 ML SYR SQ SCH (08:15)
[2021-10-18] MEDS: METOPROLOL SUCC 50MG EXT REL TAB PO SCH (08:15)
[2021-10-18] MEDS: ATORVASTATIN 20 MG TAB PO SCH (08:15)
[2021-10-18] MEDS: MUPIROCIN 2% OINT 22 GM TUBE EXT SCH (08:19)
[2021-10-18] MEDS: INSULIN ASPART PER UNIT SC SCH ×3 (08:54→17:47)
[2021-10-18] MEDS: INSULIN GLARGINE SOLOSTAR 100 UNITS/ML 3 ML PEN SC SCH (08:55)
[2021-10-18] MEDS ORDERED: FUROSEMIDE 40 MG TAB PO SCH (09:00)
[2021-10-18] MEDS ORDERED: POTASSIUM CHLORIDE CRTAB 20 MEQ TABCR PO SCH (09:00)
--- NOTE | 2021-10-18 12:26 | Pharmacy Report ---
Pharmacy Glycemic Short Note 2 - Date of Service October 18, 2021 - Glycemic Short BSG Results (Last 24 hours): 10/17/21 10/17/21 10/18/21 17:10 21:05 08:01 POC Glucose 163 H 260 H 178 H 10/18/21 12:07 POC Glucose 236 H OUTPATIENT ANTIDIABETIC REGIMEN: * Glimepiride 4 mg daily * Metformin 1000 mg PO BID * HbA1c = 8.4% (08/21/21) ASSESSMENT: 10/18 * Patient received total of 60 units of insulin yesterday, of which 20 units were basal * No steroids currently, NPH discontinued day prior * Fasting BSG 178 mg/dL - continue with daily Lantus * Continue same CF/CR for now, plan to resume home metformin with dinner tonight 10/17 * Last day of dex was yesterday 10/16. No steroids ordered for today. Will stop nph since dexamethasone dc. Empirically loosen CF/CR without steroids on board. * Add low dose weight based Lantus since A1c >8% 10/15/21 * Patient's BSGs yesterday were [phone]. Fasting today is 78 mg/dL. * Patient received 249 units of insulin yesterday (65 units of NPH plus 184 units of bolus). * With fasting of 78 mg/dL, concern that effects of NPH are carrying over for longer than 12 hours. Reduce NPH. * Since NPH reduced, will tighten CF and lower goal range on Novolog so carbohydrate coverage is not lost in the morning. 10/14 * Fasting blood sugar 100mg/dl, only CF at bedtime, will loosen further to prevent AM hypoglycemia * Blood sugars rising throughout the day d/t steroids, required IV insulin yesterday - increase NPH, continue CF/CR with meals, already very tight 10/13 * Stressors stable * AM fasting slightly above goal range and did require 3 units of correction overnight. Will cautiously increase NPH (although concern for overnight hypoglycemia still significant based on previous trends) * Post-prandial BSG's significantly elevated yesterday (day 1 of resumed steroids). Will therefore significantly tighten CHO ratio and mildly tighten correction factor 10/12 * Resumed dexamethasone: 10 mg IV x5 days (1st dose this AM) with anticipated dexamethasone 6 mg IV x5 days following (per Dr. Phillips) * Another overnight hypoglycemic event noted last night. Will still increase NPH with steroids resuming, but will not quite increase back to previous regimen while on same dose of dexamethasone earlier this admission. Will adjust based on trend in overnight/AM BSG's * Will tighten Novolog CHO ratio given post-prandial elevations yesterday and steroids resuming today * Will maintain loose HS check and increase goal range in an attempt to avoid further overnight hypoglycemia 10/11 * Pt has received 157 units of insulin over the past 24hrs * 15 units of basal with Lantus * 142 units of bolus with NovoLog * BSGs [id number]/78-53/89-148-186 mg/dl * Pt with LOW BSG last evening and overnight. Most likely d/t aggressive CF/CR ordered. * Pt regimen is very heavily weighted towards bolus insulin. AM fasting BSG in range with minimal Lantus but post-prandial BSGs significantly elevated despite large, aggressive NovoLog dosing. * Will trial switching Lantus to NPH for basal insulin (not for steroid induced hyperglycemia Pt seems to have adequate endogenous insulin secretion from HS to AM so a 24 hr basal insulin may not be needed. The 4-5hr peak in NPH will help cover post-prandial hyperglycemia at lunch time. 10/09 * Pt has received 99 units of insulin over the past 24hrs * 20 units of basal with Lantus * 79 units of bolus with NovoLog * BSGs yesterday were [phone] mg/dL. Fasting today is 109 mg/dL. * Fasting continues to trend downwards so reduce basal insulin by 20% * Tighten Novolog as BSGs trend upwards throughout the day. Loose coverage at bedtime to prevent overcorrection. PLAN FOR INPATIENT GLYCEMIC CONTROL: * Resume home metformin 1 gm bid starting tonight * Basal insulin * DC NPH * Continue Lantus 20 units SQ daily * Bolus insulin - loosen * NovoLog SQ ACHS * Goal range: 110-140 mg/dL * Correction factor: 15 mg/dL/unit AC (30 g/dL/unit at HS) * Carb ratio 1 unit per 4 grams CHOs consumed (none at HS) PLAN FOR DISCHARGE: * To be determined - unclear discharge plan right now
--- NOTE | 2021-10-18 16:41 | Discharge Summary ---
Date of Service October 18, 2021 Admission HPI Per Admitting Provider Mars Schmid is a 56yo male presenting with Covid-19 PNA and hypoxia. Patient's was ill with Covid-19 prior to Thanksgiving and is almost fully recovered. Patient began developing symptoms 1 week ago - sore throat, SOB, HANKINS and fatigue - progressive over the last week. He denies fever, chills, sweats, chest pain, abdominal pain, nausea, vomiting, diarrhea. He denies loss of taste or smell. Patient's saturations in the 70's at home which prompted him to seek care. Saturations of 78% on room air. Patient was managed with NRB and escalated to BiPAP. Feels improved at this time. Has not been eating or drinking anything for the past several days. Daughter is at bedside and is a nurse at [employer]. ER Course: Dexamethasone 6mg, KCl 10mEq, NSS x 2L Principal Diagnosis Covid-19 pneumonia, acute respiratory failure with hypoxia Discharge Exam Constitutional WD/WN, vitals as above + morbidly obese Eyes + anicteric sclerae Neck trachea midline, no thyromegaly Respiratory normal respiratory effort Auscultation: lungs clear to auscultation bilaterally Cardiovascular RRR, no murmur, no edema Chest (Breasts) Chest: normal inspection of chest Gastrointestinal (Abdomen) normal bowel sounds, soft, nontender, no hepatosplenomegaly Musculoskeletal Extremities: extremities normal to inspection; no cyanosis and no clubbing Skin no rashes, warm and dry Neurologic moves all extremities and awake; no focal motor deficits Psychiatric A+Ox3, euthymic affect Discharge Data Allergies Allergy/AdvReac Type Severity Reaction Status Date / Time No Known Allergies Allergy Unknown Verified 09/25/21 21:43 Consultations 09/25/21 21:35 ED Decision to Admit Stat Ordered Studies 10/11/21 10:23 CT angio chest PE protocol Urgent Hospital Course (1) COVID-19: 56yo male with history of DM, HTN, HLP and Obesity (BMI of 46) presenting with acute hypoxic respiratory failure secondary to Covid-19 PNA. Patient is not vaccinated against Covid-19. He has been ill approximately 1 week prior to admission With Covid-19 pneumonia repeat CXR 10/09 shows persistent bilateral infiltrates, no significant change Was on High flow nasal cannula for over 2 weeks and then finally weaned down to 2 L nasal cannula at rest and 6 L with exertion on the day of discharge Supplemental O2 ordered for him to take on CTA chest on 10/11: no PE, persistent bilateral viral pneumonia Completed 2-week course of dexamethasone Remdesevir IV completed 5 days renal function better, started baricitinib, , increased dose to 4mg on 09/30 when renal function improved, completed 14 days on 10/11 Zithromax daily completed 5 days Encourage incentive spirometry and flutter valve -Continue on guaifenesin with dextromethorphan as needed, Tessalon Perles as needed for cough Was diuresed and will continue Lasix 40 mg p.o. once daily on discharge (2) Respiratory failure: As above CTA chest on 10/11 for tachycardia and hypoxia: no PE, just viral pneumonia (3) LAURENT (acute kidney injury): Cr of 3.63 on admission Suspected dehydration contributing as well as underlying illness, Covid with hypoxia Cr normalized quickly with IV fluids adequate UO, actually negative balance Creatinine remains normal even with IV diuresis Continue Lasix 40mg po once daily as above Have since discontinued Alonso catheter and is voiding on his own, but needed straight cath on 10/10 continue to monitor voiding Added Flomax 0.4mg daily Follow BMP periodically as an outpatient (4) Type 2 diabetes mellitus: profound hyperglycemia, glucose was 500 on 09/27 mild DKA on admission, elevated beta hydroxy butyrate treated with insulin drip, gap closed, sugars better to low at times in the AMs transitioned to basal/bolus insulin sugars jumped to 400s with dexamethasone 10mg IV glucose now with improved control Advised pharmacy that dexamethasone will be discontinued so NPH dose can be adjusted Stable for discharge to home on home medications (5) Metabolic acidosis: due to DKA, renal failure resolved quickly (6) Hypertriglyceridemia: Chronic -Continue Atorvastatin (7) Hypertension: Chronic, blood pressures are controlled -Continue Toprol but increased to 100mg on 10/14, tolerating well -Continue home lisinopril but discontinued HCTZ -Started Lasix 40 mg once daily Ppx -received Lovenox 0.5mg/kg bid, would definitely use Xarelto 10mg on discharge daily x35 days- high risk for clots Pepcid BID for GI prophylaxis Code - Full per discussion with patient Disposition-stable for discharge home Total Time Total Time Spent Total Time Spent (In Minutes): 45 minutes Discharge Plan Discharge Items Patient Disposition: Home - Self-Care Reason For Visit: ACUTE HYPOXIC RESPIRATORY FAILURE, COVID-19 Discharge Diagnosis: Acute respiratory failure with hypoxia, COVID-19 Pneumonia Condition on Discharge: Fair Activity: As commented below Lifting: Gradually increase as tolerated Bathing: No limitations Exercise/Sports: Gradually increase as tolerated Non-emergency contact: Primary Care Provider Call non-emergency contact if: you have any medication questions and your symptoms worsen Follow-up/Referrals: Olivia Hanna MD [Primary Care Provider] - 10/26/21 11:30 am (Follow up within 1-2 weeks) Diet: Carb Consistent or DM2 Addtl Attending Provider Instructions: You were admitted with COVID-19 Pneumonia and had respiratory failure requiring supplemental oxygen. You had a prolonged course, but are finally improved. Your oxygen need on discharge is to wear 3L of oxygen at rest and turn it up to 6L via the nasal cannula with exertion. Please continue the pursed lip breathing method also with exertion. You were started on a water pill called furosemide and your HCTZ will be discontinued. You were also started on a pill for enlarged prostate as you had some difficulty emptying your bladder-this is called Flomax. You can get a COVID booster shot in 90 days (around January 09) as you received a drug called baricitinib as part of your treatment. Take the low dose blood thinner pill called Xarelto once daily for the next 35 days to prevent blood clots in the legs or lungs after discharge. Please continue to gradually increase your activity level as tolerated. If you develop worsening shortness of breath, chest pain, lightheadedness, leg pain or swelling, bleeding, severe headache, or any other acute concern, please return to the hospital right away. Pending Studies at Discharge: No Stand-Alone Forms: [facility] Medications and DC Order Prescriptions: New tamsulosin 0.4 mg Capsule 0.4 mg PO QAM Qty: 30 RF: 0 metoprolol succinate 100 mg tablet extended release 24 hr 100 mg PO DAILY Qty: 30 RF: 0 furosemide 40 mg Tablet 40 mg PO QAM Qty: 30 RF: 0 Xarelto 10 mg tablet 10 mg PO DAILY 35 Days Qty: 35 RF: 0 potassium chloride 10 mEq capsule, extended release 10 meq PO DAILY Qty: 30 RF: 0 Continued atorvastatin 20 mg tablet 20 mg PO DAILY Qty: 30 RF: 5 metformin 1,000 mg tablet 1,000 mg PO BID Qty: 60 RF: 5 (DME) blood glucose control, normal [OneTouch Ultra Control] solution See Dose Instructions .ROUTE .MEDSUPPLY Qty: 50 RF: 5 Discontinued hydrochlorothiazide 25 mg tablet 25 mg PO DAILY Qty: 30 RF: 11 metoprolol succinate 50 mg tablet extended release 24 hr 50 mg PO DAILY RF: 0 No Action lisinopril 40 mg tablet 40 mg PO DAILY Qty: 90 RF: 1 glimepiride 4 mg tablet 4 mg PO DAILY Qty: 90 RF: 1 Discharge Orders: Discharge Order (Routine); Ordered 10/18/21 Ordered By: Vika Hunt/Other Patient Handouts: Understanding Oxygen Therapy Admission Data Admit Date/Time: 09/25/21 22:38 Attending Provider: Vika Wilkes Admit Provider: Lolita Briceño Primary Care Provider: Olivia Hanna Other Providers: Lolita Briceño Other Interventions: Discharge Summary Assessment (RN) Last Done: 10/18/21 16:48 Coding Level of Care Code D/C DAY MANAGEMENT >30 MINS Diagnoses COVID-19 U07.1 Respiratory failure J96.01 Chronicity: acute Respiratory failure complication: hypoxia LAURENT (acute kidney injury) N17.9 Type 2 diabetes mellitus E11.9 Metabolic acidosis E87.2 Hypertriglyceridemia E78.1 Hypertension I10
[2021-10-18] MEDS ORDERED: metFORMIN HCL 500 MG TAB PO SCH (17:00)
[2021-10-19] MEDS ORDERED: GLIMEPIRIDE 2 MG TAB PO SCH (09:00)
== END 2021-10-18 19:14 | disposition home or self-care (01) | DRG 177 ==
LOC: ED 20:58 → EDINP 22:38 → SUATTDRO 22:38 → 2E 09-26 01:36 → 3E 10-14 15:45